=== PATIENT | male | born 1960 | race Caucasian/White ===

== ENCOUNTER → 2022-12-18 | Outpatient (CLI) | payer MEDICARE, MEDICAID, SELFPAY ==
[2022-12-18 11:50] LABS: Creatinine, Serum 1.09 mg/dL (0.70-1.30); EST Glomerular Filtration Rate 73 mL/min (>60); Est Glom Filt Rate - Afr Amer 88 mL/min (>60)
== END | disposition home or self-care (01) ==
PROVIDERS: PCP Internal Medicine; Referring Provider Physician Assistant; Visit Provider Physician Assistant
DX: I10 Essential (primary) hypertension (principal); E11.9 Type 2 diabetes mellitus without complications; I65.29 Occlusion and stenosis of unspecified carotid artery
CPT/HCPCS: 36415; 82565

== ENCOUNTER → 2023-01-10 | Outpatient (CLI) | payer MEDICARE, MEDICAID, SELFPAY ==
--- NOTE | 2023-01-10 12:03 | ADUL_ITS ---
Reason For Study: PVD, hx right iliac artery stent Right Velocities Common Iliac Artery, dist = 49.3 cm./sec. Ext. Iliac Artery, dist = 47.8 cm./sec. Common Femoral Artery, prox = 102.1 cm./sec. Common Femoral Artery, mid = 66.9 cm./sec. Supf Femoral Artery, prox = 107.3 cm./sec. Supf Femoral Artery, mid = 89.8 cm./sec. Supf Femoral Artery, dist. = 54.8 cm./sec. Profunda Femoral Artery = 28.2 cm./sec. Popliteal Artery, mid = 38.4 cm./sec. Post. Tibial Artery, prox = 11 cm./sec. Post. Tibial Artery, mid = 10 cm./sec. BILINGUAL INTERPRETER distal, No Flow. Peroneal Artery, prox = 22.1 cm./sec. Peroneal Artery, mid = 18.1 cm./sec. Peroneal Artery,dist = 15.6 cm./sec. Ant. Tibial Artery, prox = 24.1 cm./sec. Ant. Tibial Artery, mid = 28.2 cm./sec. Ant. Tibial Artery, dist = 15.1 cm./sec. Procedure Exam performed in department. VL/US Art Duplex Unilat Lower Ext Interpretation Summary Right lower extremity arteries with monophasic flow and diminished velocities t hroughout indicating a more proximal occlusion/stenosis. Ordering Physician: La Hart Referring Physician: Elmira Danielle Performed By: Cuca Gaspar RVT
--- NOTE | 2023-01-10 12:03 | ART_ITS ---
Reason For Study: PVD, hx right iliac artery stent Procedure A bilateral lower extremity continuous wave Doppler with analog waveform analysis and ankle brachial indexes. Left Segmental Pressures Left brachial= 97mmHg. Left posterior tibial artery = 22mmHg. Left dorsalis pedis artery = 46mmHg. The left dorsalis pedis waveforms are monophasic. The left posterior tibial artery waveforms are monophasic. Right Segmental Pressures Right brachial= 97mmHg. Right posterior tibial artery = 24mmHg. Right dorsalis pedis artery = 30mmHg. The right dorsalis pedis waveforms are monophasic. The right posterior tibial artery waveforms are monophasic. Indices The right ankle brachial index by the dorsalis pedis is 0.31. The right ankle brachial index by the posterior tibial artery is 0.25. The left ankle brachial index by the dorsalis pedis is 0.47. The left ankle brachial index by the posterior tibial artery is 0.23. . Preliminary report to Cathy. VL/Ankle Brachial Index Interpretation Summary Right ADA 0.31, severe arterial insufficiency. Doppler/PVR waveforms of the rig ht ankle severely diminished. Left ADA 0.47, severe arterial insufficiency. Doppler/PVR waveforms of the left ankle severely diminished Ordering Physician: La Hart Referring Physician: Elmira Danielle Performed By: Cuca Gaspar RVT
--- NOTE | 2023-01-10 12:03 | CT_ITS ---
INDICATION: Bilateral carotid artery stenosis, hx CVA EXAMINATION: CT BRAIN WITHOUT CONTRAST; CTA HEAD AND NECK WITH CONTRAST TECHNIQUE: Noncontrast axial images were obtained of the brain. Subsequently, routine carotid CT angiogram protocol was performed without and with IV contrast. In addition, images were obtained of the [place]. NASCET criteria using the distal ICAs for comparison were used for evaluation of stenoses. 3D reconstructions were reviewed. A radiation dose optimization technique was used for this scan. IV Contrast dosage and agent: 98 mL of Isovue-370 COMPARISON: 12/09/[address] FINDINGS: --CT BRAIN: BRAIN PARENCHYMA: No intra- or extra-axial hemorrhage. No evidence of acute infarct. No intracranial mass or mass effect. There is preservation of the durán/white matter interface. Posterior fossa structures are unremarkable. CSF SPACES: Appropriate for age. No hydrocephalus. Basal cisterns are patent. CALVARIUM, SKULL BASE, PARANASAL SINUSES AND MASTOID AIR CELLS: Clear. No discrete lytic or blastic abnormalities. Bilateral ocular lens replacements. ASPECTS Score for Acute Strokes: 10 --CTA NECK: AORTIC ARCH AND BRANCHES: Common origin of the innominate and left common carotid arteries. Aortic arch origin of the left vertebral artery. RIGHT CCA: No occlusion, significant stenosis or dissection. RIGHT ICA: Calcific plaque at the origin with approximately 50% stenosis. LEFT CCA: No occlusion, significant stenosis or dissection. LEFT ICA: Near complete occlusion at the carotid bulb. RIGHT VERTEBRAL ARTERY: No occlusion, significant stenosis or dissection. LEFT VERTEBRAL ARTERY: No occlusion, significant stenosis or dissection. NECK SOFT TISSUES: Unremarkable. --CTA HEAD: --Anterior circulation: ICAs: No significant stenosis at the intracranial/visualized segments. ACAs: No significant stenosis at the visualized segments. ACOM: Present. MCAs: No significant stenosis at the visualized segments. --Posterior circulation: PCOMs: Present. kennel worker: No significant stenosis at the visualized segments. BASILAR ARTERY: No significant stenosis. VERTEBRAL ARTERIES: No significant stenosis at the intradural/visualized segments. No evidence of intracranial aneurysm or vascular malformation. CT/CTA Head AND Neck W/ Contrast IMPRESSION: Near complete occlusion of the right ICA at the carotid bulb. Approximately 50% stenosis of the left ICA at the carotid bulb. Variant aortic arch. No acute abnormal intracranial finding. No intracranial stenosis or aneurysm. Electronically Signed: Joey Duran MD at 23:15 EDT ,
== END | disposition home or self-care (01) ==
LOC: CVS 12:02
PROVIDERS: PCP Nurse Practitioner Family; Referring Provider Surgery Trauma Surgery; Visit Provider Surgery Trauma Surgery
DX: I65.23 Occlusion and stenosis of bilateral carotid arteries (principal); I73.9 Peripheral vascular disease, unspecified; Z86.73 Personal history of transient ischemic attack (TIA), and cerebral infarction without residual deficits
CPT/HCPCS: 70496; 70498; 93922; 93926; Q9967; A4216

== ENCOUNTER → 2023-01-24 | Outpatient (CLI) | payer MEDICARE, MEDICAID, SELFPAY ==
--- NOTE | 2023-01-24 14:43 | STRESSREP ---
Stress Test Report Pharmacologic myocardial perfusion stress test. 62-year-old man coronary disease for preop evaluation Resting EKG demonstrates sinus rhythm with a rate of 75 bpm. Resting blood pressure is 112/72 mmHg. 0.4 mg of regadenoson was infused per usual protocol followed by rapid intravenous saline flush injection. Continuous EKG monitoring was performed. The maximum heart rate was 90 bpm which was 56% of max impacted heart rate the maximum workload was 1 metabolic equivalent. At rest there were no ST or T wave changes noted to suggest ischemia and at peak infusion nonspecific ST changes were noted which did not meet the criteria for ischemia. No clinical angina is noted. The final blood pressure was 108/74 mmHg. Myocardial perfusion protocol. 11.6 mCi of technetium 99m sestamibi was injected at rest. 0.4 mg of regadenoson was infused per usual protocol. At peak infusion 34.1 mCi of technetium 99m sestamibi was injected stress images were obtained stress and rest images were reconstructed and compared in the short axis vertical long and horizontal long axis. Gated images were also obtained. Perfusion SPECT analysis: Review of the stress images demonstrate normal uptake of tracer noted in all areas of the myocardium. The resting images similar demonstrated normal uptake of tracer noted in all areas of the myocardium. No areas of reversibility are noted to suggest ischemia and no previous infarct is noted. Gated SPECT analysis: The gated ejection fraction is 56%. Conclusion: Normal pharmacologic myocardial perfusion stress test. Preserved ejection fraction.
== END | disposition home or self-care (01) ==
LOC: CVS 05:53
PROVIDERS: PCP Nurse Practitioner Family; Referring Provider Internal Medicine Cardiovascular Disease; Visit Provider Internal Medicine Cardiovascular Disease
DX: I25.10 Atherosclerotic heart disease of native coronary artery without angina pectoris (principal); Z95.1 Presence of aortocoronary bypass graft
CPT/HCPCS: 78452; 93017; A9500; A4216; J2785

== ENCOUNTER → 2023-01-24 | Outpatient (CLI) | payer MEDICARE, MEDICAID, SELFPAY ==
--- NOTE | 2023-01-24 09:58 | CDU_ITS ---
Reason For Study: Hx TIA Rt. Velocities/BP Lt. Velocities/BP Prox CCA 75.9/14.5 cm/sec. Prox CCA 35.2 cm/sec. Mid CCA 67.4/17.3 cm/sec. Mid CCA 20.2/3.7 cm/sec. Dist CCA 66.4/15.4 cm/sec. Dist CCA 18.2/6 cm/sec. Prox ICA 179.5/29.8 cm/sec. Bulb, 317.8/75.3 cm/sec. Mid ICA 78.4/27.8 cm/sec. Prox ICA 43.7/13.5 cm/sec. Dist ICA 92.7/33.3 cm/sec. Mid ICA 44.7/18.2 cm/sec. Rt. ICA/CCA = 2.66. Dist ICA 50.4/20.1 cm/sec. Prox ECA 161.3/11.5 cm/sec. Lt. ICA/CCA = 2.50. Rt. Vert. 65.2/14.6 cm/sec. Prox ECA 208.1/3.4 cm/sec. Lt. Vert. 89.4/23.4 cm/sec. Right Extracranial There is homogeneous, smooth atherosclerotic plaque noted in the right common carotid artery. There is heterogeneous, irregular atherosclerotic plaque noted in the right internal carotid artery. There is heterogeneous, irregular atherosclerotic plaque noted in the right external carotid artery. Antegrade flow is noted in the right vertebral artery. Left Extracranial There is heterogeneous, irregular atherosclerotic plaque noted in the left common carotid artery. There is heterogeneous, irregular atherosclerotic plaque noted in the left internal carotid artery. There is heterogeneous, irregular atherosclerotic plaque noted in the left external carotid artery. Antegrade flow is noted in the left vertebral artery. Procedure Carotid Duplex 30779. This is a Carotid Duplex examination using B-mode, color flow and specral Doppler. Preliminary report left on voicemail. Exam performed in department. VL/Carotid Duplex Ultrasound Interpretation Summary Moderate (50-69%) stenosis right extracranial internal carotid. Severe (>70%) stenosis left extracranial internal carotid. Patent and antegrade vertebrals bilaterally. Ordering Physician: La Hart Referring Physician: Petey Danielle Performed By: Cuca Gaspar RVT
== END | disposition home or self-care (01) ==
LOC: CVS 05:54
PROVIDERS: PCP Nurse Practitioner Family; Referring Provider Physician Assistant; Visit Provider Physician Assistant
DX: I65.23 Occlusion and stenosis of bilateral carotid arteries (principal); Z86.73 Personal history of transient ischemic attack (TIA), and cerebral infarction without residual deficits
CPT/HCPCS: 78452; 93017; 93880; A9500; A4216; J2785

== ENCOUNTER 2023-01-27 05:05 | Inpatient (IN) | payer MEDICARE, MEDICAID, SELFPAY ==
--- NOTE | 2023-01-23 12:50 | EKG12_ITS ---
Test Reason : PRE OP Blood Pressure : / mmHG Vent. Rate : 066 BPM Atrial Rate : 066 BPM P-R Int : 162 ms QRS Dur : 094 ms QT Int : 406 ms P-R-T Axes : 076 063 071 degrees QTc Int : 425 ms Normal sinus rhythm Normal ECG Confirmed by BJORN BOTELLO, MENDY ([id number]), international editorial producer BUTCH BARNETT ([id number]) on 01/24/2023 8:12:19 AM Referred By: RANJANA Confirmed By:MENDY MILAN MD
[2023-01-27] VITALS (18 sets, daily range): BP systolic 85–150; BP diastolic 39–56; PULSE 53–66; RESP 13–19; TEMP 36.4–36.8; O2SAT 92–99; BMI 23.8; BMI 24.5
[2023-01-27] MEDS: Lactated Ringers 1,000 ML 15 ML IV (06:38)
[2023-01-27 06:41] LABS: Hematocrit 43.2 % (40-54); Hemoglobin 14.5 g/dL (13.0-16.5); Mean Corp Hgb Conc 33.6 g/dL (32-36); Mean Corpuscular Hgb 31.9 pg (27.0-32.0); Mean Corpuscular Volume 95.2 fL (80-94); Mean Platelet Vol. 9.4 fl (6.2-12.0); Platelet Count 206 K/mm3 (150-450); RBC Distribution Width CV 12.4 % (11.6-14.6); RBC Distribution Width SD 42.9 fl (35.1-43.9); Red Blood Count 4.54 M/mm3 (4.6-6.2); White Blood Count 10.2 K/mm3 (4.4-11.0)
[2023-01-27 06:51] LABS: Bedside Glucose 171 mg/dL (74-106)
[2023-01-27 06:53] LABS: Anion Gap 4 (5-15); BUN 11 mg/dL (7-18); BUN/Creat Ratio 13.7 RATIO (10-20); Calcium,Total 9.1 mg/dL (8.5-10.1); Chloride 109 mmol/L (98-107); EST Glomerular Filtration Rate 104 mL/min (>60); Est Glom Filt Rate - Afr Amer 126 mL/min (>60); Estimated Creatinine Clearance 77.05 ml/min; Glucose 161 mg/dL (74-106); Potassium 3.8 mmol/L (3.5-5.1); Sodium Level 141 mmol/L (136-145)
--- NOTE | 2023-01-27 07:19 | PCM.HP.BLA ---
History and Physical Allergies tramadol [From [facility]] Adverse Reaction (Severe, Verified 01/23/23 13:25) Rash Medications clopidogrel 75 mg tablet 75 mg PO DAILY BLOOD THINNER 12/09/13 [History Confirmed 01/23/23] furosemide 40 mg tablet 40 mg PO DAILY DIURETIC 12/09/13 [History Confirmed 01/23/23] pantoprazole 40 mg tablet,delayed release 40 mg PO DAILY GERD 12/09/13 [History Confirmed 01/23/23] empagliflozin 10 mg tablet (Jardiance) 10 mg PO DAILY DIABETES 02/27/22 [History Confirmed 01/23/23] insulin detemir U-100 100 unit/mL subcutaneous solution (Levemir U-100 Insulin) 70 unit subcut QHS DIABETES 02/27/22 [History Confirmed 01/23/23] insulin lispro 100 unit/mL subcutaneous pen (Humalog KwikPen (U-100) Insulin) 1 sliding scale dose subcut USEASDIRECTD DIABETES 02/27/22 [History Confirmed 01/23/23] losartan 100 mg tablet 100 mg PO DAILY BP 02/27/22 [History Confirmed 01/23/23] metoprolol tartrate 50 mg tablet 50 mg PO BID BP 02/27/22 [History Confirmed 01/23/23] sertraline 50 mg tablet 75 mg PO QHS DEPRESSION 02/27/22 [History Confirmed 01/23/23] sitagliptin phosphate 100 mg tablet (Januvia) 100 mg PO DAILY DIABETES 02/27/22 [History Confirmed 01/23/23] gabapentin 300 mg capsule 600 mg PO DAILY NERVE PAIN 12/18/22 [History Confirmed 01/23/23] rosuvastatin 40 mg tablet 20 mg PO DAILY CHOLESTEROL 12/18/22 [History Confirmed 01/23/23] hydroxyzine HCl 50 mg tablet 50 mg PO QHS SLEEP 01/20/23 [History Confirmed 01/23/23] diazepam 2 mg tablet (Valium) 2 mg PO DAILY PRN sleep #4 tabs 01/23/23 [Rx Confirmed 01/23/23] PFSH Medical History? Alcohol use Allergies Anxiety Arthritis Atherosclerotic heart disease of [place] coronary artery without angina pectoris Cardiology follow-up encounter Carotid stenosis Cataracts, bilateral Chronic insomnia Chronic left ear pain Depression Diabetes Diabetes mellitus type II, controlled Diabetic neuropathy Easy bruising Essential hypertension Excessive bleeding Gastric reflux GERD (gastroesophageal reflux disease) High cholesterol History of echocardiogram History of edema History of ETOH abuse History of pain when walking History of stress test History of stroke (10/30/21) Hyperlipidemia Insulin dependent diabetes mellitus Leg cramps Major depression in remission Memory impairment Peripheral vascular occlusive disease Smoker Stage 3 chronic kidney disease Stroke/cerebrovascular accident Tobacco abuse Wears dentures Surgical History? H/O coronary artery bypass surgery (03/09/07) History of angioplasty of peripheral vessel Family History? Brother Kidney diseaseMother Asthma Heart disease HypertensionFather Cancer Heart disease Hypertension Social History? Smoking Status:? Light Smoker (<10/day) Tobacco: How many years used:? 45 alcohol intake:? current substance use type:? does not use what type of physical activity do you participate in:? walking frequency:? daily glenroy/hoahaoism:? Yarsani seatbelt use:? always HPI HPI HPI: JAMEL VARGAS, is a 62 M who presents to the office today for follow-up regarding carotid artery stenosis. He is accompanied to his appointment today by his daughter who helps to coordinate his care. He has obtained the CTA Head and Neck as ordered which confirmed critical stenosis and we have started the process of scheduling surgery pending patient agreeing to procedure. He is here to discuss surgical options/recommendations today. Patient continues to have the vision changes including floaters and ocular pain as at last visit. No new focal motor weakness or sensory deficit, dysarthria, facial drooping. No CP, SOB, N/V, F/C, palpitations, syncope/light-headedness, vertigo, blood in the urine or stool. He is having significant anxiety regarding the finding of significant carotid disease and upcoming procedure. The anxiety is contributing to insomnia and he reports he has not slept in 3-4 days. He has tried multiple OTC sleep aids including melatonin without improvement. Continues to have the R hip pain, stable overall. Otherwise, no other complaints today. No changes in his interval medical history which is significant for ?CAD s/p CABGx4 (2006), diabetes (last A1c around 9), HTN, migraine, restless leg syndrome. He continues to smoke. He is taking his ASA and plavix as prescribed.? He is scheduled for cardiac stress test tomorrow as part of process for surgical clearance. ROS General General: Yes weakness; No weight change, appetite, fatigue, colon cancer or breast cancer HEENT HEENT: No difficulty swallowing, eye injury, eye surgery, swollen glands or hoarseness Endo Endocrine: Yes diabetes mellitus; No thyroid disease, thyroid cancer, Hair loss, heat intolerance or cold intolerance Skin Skin: No rash or changing moles Musc Musculoskeletal: Yes back problems, arthritis, rheumatoid arthritis, gout and joint pain Cardio Cardiovascular: Yes high blood pressure, heart stent and palpitations; No murmur, pacemaker, heart disease, atrial fibrillation, heart attack, shortness of breat with exertion or chest pain Psych Psychiatric: Yes depression; No anxiety or hearing voices Resp Respiratory: No shortness of breath, Yes sleep apnea, No cough, No COPD, No asthma, No emphysema and No wheezing Gastro Gastrointestinal: No abdominal pain, No nausea or vomiting, No diarrhea, No constipation, No blood in stool, Yes acid reflux, No hemorrhoids, No ulcers, No gallbladder problem and No black,tarry stools Alon Hematologic: Yes blood thinners, No blood disorders, No bleeding, No anemia and No blood clots Neuro Neurologic: No system reviewed and no additional complaints, except as documented, No as per HPI, No abnormal gait, No abnormal hearing, No abnormal movements, No abnormal speech, No behavioral changes, Yes burning sensations, No confusion, No convulsions, No disequilibrium, No dizziness, No localized weakness, No frequent falls, No headache(s), No lack of coordination, No loss of vision, No memory loss, Yes numbness, No other visual disturbances, No radicular pain, No restless legs, No sensory deficit, No syncope, Yes tingling, No tremor(s), Yes weakness and No other Exam Const General: cooperative, comfortable and no acute distress Orientation: alert, awake and oriented x3 HENMT Head: normal to inspection, normocephalic and atraumatic Ears: hearing grossly normal bilaterally and external ears normal Nose: external nose normal Eyes General: appearance normal, both eyes and all related structures EOM: EOM intact bilaterally Neck Neck: normal visual inspection and trachea midline Resp Effort & Inspection: normal respiratory effort, able to speak in complete sentences, symmetric chest movement, not labored, no respiratory distress, no retractions and no stridor Auscultation: clear to auscultation bilaterally Cardio Rate: regular rate Rhythm: regular rhythm Skin General: no rashes or lesions noted Trauma: no lacerations or abrasions Wounds: no wounds Neuro General: patient alert, patient awake, patient oriented x3, gait normal, moves all extremities and CN's II-XI intact bilaterally Speech: speech normal Extremities Pulses: Normal: Right Radial Pulse and Left Radial Pulse and Absent: Right Dorsalis Pedis Pulse (monophasic doppler signal), Left Dorsalis Pedis Pulse (monophasic doppler signal), Right Posterior Tibial Pulse (biphasic doppler signal) and Left Posterior Tibial Pulse (biphasic doppler signal) Lower Extremity Edema: None: Bilateral Psych Appearance: grossly normal Mental Status: mental status grossly normal Affect: normal affect Speech and Movement: speech and movement normal Attitude: cooperative Judgment: judgment good Coding Level of Care Code Off vis,est,level 3 Diagnoses Carotid stenosis? I65.29 Peripheral vascular occlusive disease? I73.9 Assessment and Plan Assessment and Plan (1) Carotid stenosis: -left CEA
--- NOTE | 2023-01-27 07:30 | PLAQ_PTH ---
PATIENT: JAMEL VARGAS LOC: [facility] U#:[id number] AGE/SX: 62/M ROOM: [place] [address] RE01/27/[address]: Dr. Basil Cartagena MD : 1960 BED: 1 DIS: 01/28/2023 SPEC #: [id number] RECD: 01/27/23 12:54 STATUS: TYRON RELupe #: [id number] STEVEN: 01/27/23 07:[address]: Basil Cartagena DEPT: SURGICAL PATHOLOGY RECD BY: Steven Godfrey ENTERED: 01/27/23 13:30 SP TYPE: PLAQUE OTHR DR: Elmira Danielle NP-Abhinav Tissues: PLAQUE Procedures: Decalcification bone/plaque Surgery Specimen Level III HEADER OPERATION: Carotid endarterectomy PRE-OP DIAGNOSIS: Carotid stenosis TISSUE SUBMITTED: Carotid plaque MICROSCOPIC DIAGNOSIS Carotid plaque, endarterectomy: Atherosclerotic tissue with focal calcifications (plaque). SJ:oly 01/30/2023 GROSS DESCRIPTION Received in fixative is one container labeled with the patient's name and designated carotid plaque. The specimen consists of a previously opened donovan, indurated piece of tubular tissue measuring 2.0 cm in length and 0.8 cm in diameter. The specimen cuts with gritty sensation. The entire specimen is submitted in one cassette after decalcification. / CHERELLE:oly 01/27/2023 TC:5 CPT: 06799, 80320
[2023-01-27] MEDS: Cefazolin 2 GM in 0.9% Normal Saline 100 ML IV (07:36)
[2023-01-27 08:32] LABS: Hemoglobin A1c 7.1 % (3.8-5.6)
[2023-01-27] MEDS: Heparin Injection (Vial) 5,000 UNIT/ML VIAL 5000 UNIT (10:00)
--- NOTE | 2023-01-27 10:26 | PCM.OPRPT ---
Report of Operation Date of Procedure: 01/27/23 Pre-Operative Diagnosis: left carotid stenosis, symptomatic Post-Operative Diagnosis: same Surgery/Procedure Performed:: left carotid endarterectomy Surgeon: Basil Cartagena Type of Anesthesia: General Drains: 15 Fr RAPHAEL Estimated Blood Loss (mL): 50 Description of Procedure: HPI: Patient is a 62-year-old male who had a left ocular vision disturbances and had concerning findings when seen by ophthalmology. He had a carotid duplex at an outside facility which revealed diminutive flow in the carotid and no visualized stenosis at the origin however there was dense calcifications. CT angiography confirmed a highly calcified lesion with what appeared to be a 85% stenosis. He is taken now for endarterectomy for stroke prevention. Description of procedure: Upon obtaining form consent and verification correct patient procedure site patient was taken the operating where he was placed under general anesthesia. He was then positioned prepped and draped in usual sterile fashion and timeout was performed. Oblique incision was made along the anterior border of the sternocleidomastoid and Bovie electrocautery dissected down to the level of the platysma. The platysma was then divided and self-retaining retractors put in position. Further dissection was carried down to the sternocleidomastoid which was freed along its medial edge along posterior lateral retraction and exposing the carotid sheath. Sharp dissection was then used to dissect free the anterior to the internal jugular vein, and the facial vein and adjacent branches were ligated with silk ties and divided allowing the vein to be retracted laterally exposing the carotid. Sharp dissection was then used to dissect free the proximal common carotid artery with care taken to identify and protect the vagus nerve. A right angle used to place Vesseloops this location and the patient was then heparinized and allowed to circulate for 3 minutes. Serial heparin dosing was performed based on ACT results. Next we turned our attention to the internal carotid artery and dissected distally to a point beyond the area of palpable and visible plaque with care taken to identify and protect the hypoglossal nerve. Vessels then dissected free circumferentially and a right angle used to place a vessel loop. Finally we dissected free the external carotid artery and a right angle used to place a vessel loop. Vessels were then clamped first the internal followed by the common and external. Longitudinal arteriotomy was created with 11 blade extended Mcnulty scissors onto the internal carotid artery beyond the area of plaque. An 8 [place] shunt was then placed first distally into the internal carotid artery then allowed to backbleed before placing proximally in the common carotid artery. The shunt was interrogated with Doppler and found to be patent with low resistance signal. We then performed her endarterectomy with a freer elevator with satisfactory endpoint onto the internal carotid artery and eversion endarterectomy onto the external carotid artery. The vessel was then flushed with heparinized saline to clear debris in the distal endpoint tacked with 7-0 Prolene interrupted sutures. Next a bovine pericardial patch was brought to field and secured into position using a 6-0 Prolene in a running fashion. Prior to completing the suture line the shunt was removed and the vessels backbled. After completing the suture line the internal carotid artery was allowed to backbleed into the bifurcation then reoccluded as origin. The clamps were then removed from the external and the common carotid artery allowing 10 heartbeats of antegrade flow to flush into the external before reestablishing antegrade flow into the internal carotid artery. Once clamps removed satisfactory stasis was noted and the vessels were interrogated with Doppler. The internal carotid artery is patent with low resistance signal in the external carotid artery is patent. The patient was then reversed with protamine and the incision inspected for hemostasis. A 15 [place] RAPHAEL was then placed via separate stab incision and secured in position. The incision was then closed with 2-0 Vicryl, 3-0 Vicryl, 4 Monocryl and Dermabond for the skin. At the conclusion of the case patient was awakened anesthesia moving all extremities to command at which point he was taken the intensive care unit for close hemodynamic and neurologic monitoring.
[2023-01-27] MEDS: Bupivacaine Mpf 0.5% 30 ML VIAL (10:35)
[2023-01-27] MEDS: 0.45% Normal Saline 1,000 ML 100 ML IV ×2 (12:14→21:19)
[2023-01-27 12:48] LABS: Bedside Glucose 165 mg/dL (74-106)
[2023-01-27] MEDS: Acetaminophen 500 MG Tablet 1000 MG PO ×2 (14:21→21:20)
[2023-01-27] MEDS: Cefazolin 1 GM/50 ML BAG IV ×2 (16:09→23:21)
[2023-01-27 16:33] LABS: Bedside Glucose 130 mg/dL (74-106)
[2023-01-27] MEDS: Insulin Glargine-YFGN 100 UNIT/ML Pen 70 UNIT SC (21:19)
[2023-01-27] MEDS: Sertraline 50 MG Tablet 75 MG PO (21:20)
[2023-01-27] MEDS: Atorvastatin Calcium 40 MG Tablet PO (21:20)
[2023-01-27] MEDS: hydrOXYzine PAM 25 MG Capsule 50 MG PO (21:20)
[2023-01-27 21:50] LABS: Bedside Glucose 135 mg/dL (74-106)
[2023-01-28] VITALS (13 sets, daily range): BP systolic 105–139; BP diastolic 46–86; PULSE 53–65; RESP 11–17; TEMP 36.4; O2SAT 90–98; BMI 24.6
[2023-01-28 03:12] LABS: Absolute Lymphocyte Count 3.52 X10^3/uL (0.83-4.51); Absolute Neutrophil Count 3.7 X10^3/uL (2.0-7.7); Basophil# 0.08 X10^3/uL; Basophil% 0.9 % (0-1); Eosinophil# 1.35 X10^3/uL; Hematocrit 34.8 % (40-54); Hemoglobin 11.2 g/dL (13.0-16.5); Lymphocyte # 3.52 X10^3/ul (0.83-4.51); Lymphocyte % 39.1 % (19-41); Mean Corp Hgb Conc 32.2 g/dL (32-36); Mean Corpuscular Hgb 31.3 pg (27.0-32.0); Mean Corpuscular Volume 97.2 fL (80-94); Mean Platelet Vol. 9.8 fl (6.2-12.0); Monocyte# 0.36 X10^3/uL; NRBC Flagged by Analyzer 0 % (0-5); Neutrophil # 3.68 X10^3/uL (2.7-7.7); Neutrophil % 40.8 % (47-70); Platelet Count 159 K/mm3 (150-450); RBC Distribution Width CV 12.4 % (11.6-14.6); RBC Distribution Width SD 44.5 fl (35.1-43.9); Red Blood Count 3.58 M/mm3 (4.6-6.2)
[2023-01-28 03:57] LABS: Anion Gap 2 (5-15); BUN 9 mg/dL (7-18); BUN/Creat Ratio 12.7 RATIO (10-20); Calcium,Total 8.3 mg/dL (8.5-10.1); Chloride 109 mmol/L (98-107); Creatinine, Serum 0.71 mg/dL (0.70-1.30); EST Glomerular Filtration Rate 120 mL/min (>60); Est Glom Filt Rate - Afr Amer 145 mL/min (>60); Estimated Creatinine Clearance 86.82 ml/min; Glucose 89 mg/dL (74-106); Sodium Level 139 mmol/L (136-145)
[2023-01-28] MEDS: Acetaminophen 500 MG Tablet 1000 MG PO (06:24)
[2023-01-28 06:47] LABS: Bedside Glucose 109 mg/dL (74-106)
--- NOTE | 2023-01-28 09:10 | CASEMGMT ---
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 Pt voices understanding and consents to?assessment?at this time.? Pt sitting up in chair in room in no distress at this time.? Pt is A/O at this time and answers all questions appropriately.?? Care providers, pharmacy, and demographics verified/updated at this time. PCP: CAPRICE Danielle Specialists:Dr Cartagena- vascular Preferred Pharmacy: [facility], [facility] Retail Insurance: Julissa COLEMAN Prescription Benefit:?Yes Living Will/HPOA:?Pt does not currently have LW/HCPOA and declines info at this time.? Pt made aware that he can contact as an out-pt and make appt in the future if he decides he would like to talk with someone about this or would like to utilize [facility] social work for advanced directive completion. LNOK: Daughter, Yamini. 3 other children Living Arrangements: Lives alone in 2nd-story apt w/elevator access. Indep w/ADL's and IADL's and manages his own medications and appts. Transportation:?Pt states drives self and states no transportation concerns at this time.?Dtr will take him home @ dc DME: ? Denies using any DME and denies needs.? HHC/SNF: No hx of either. Pt denies need for HHC and no needs identified. Pt wishes to return home and states has no concerns with going home at time of discharge.??CM?to follow for any discharge planning/needs.? Pt voices no further concerns/needs at this time.? Advised pt to ask for?CM?if any further questions/concerns/needs arise.? Voices understanding. PLAN:??Home. Markus LIMAN?RN?CM
[2023-01-28] MEDS: Losartan Potassium 100 MG Tablet PO (09:45)
[2023-01-28] MEDS: Empagliflozin 10 MG Tablet PO (09:46)
[2023-01-28] MEDS: Pantoprazole Sodium 40 MG Tablet PO (09:48)
[2023-01-28] MEDS: LINAGLIPTIN 5 MG TABLET PO (09:48)
[2023-01-28] MEDS: Enoxaparin 40 MG/0.4 ML Syringe SC (09:48)
[2023-01-28] MEDS: Gabapentin 600 MG Tablet PO (09:48)
[2023-01-28] MEDS: Metoprolol Tartrate 50 MG Tablet PO (09:49)
[2023-01-28] MEDS: Furosemide 40 MG Tablet PO (09:49)
[2023-01-28] MEDS: Clopidogrel Bisulfate 75 MG Tablet PO (09:49)
--- NOTE | 2023-01-28 10:45 | PN.SURG_ITS ---
Subjective Subjective Patient is doing very well, no issues overnight. He is voiding without difficulty. Has been tolerating clears for diet. His pain is well-controlled. He has not ambulated very much yet. He denies SCHAFER, vision changes, weakness. Objective Data Objective Data Vital Signs: Vital Signs Temp Pulse Resp BP Pulse Ox O2 Del Method O2 Flow Rate 97.5 F L 62 15 129/58 H 93 Room Air 2 01/28/23 06:00 01/28/23 10:00 01/28/23 10:00 01/28/23 10:00 01/28/23 10:00 01/28/23 10:00 01/28/23 07:00 Oxygen Flow Rate (L/min) 2 Oxygen Delivery Method Room Air Weight: 139 lb 1.787 oz Body Mass Index (BMI) 24.6 Intake & Output: Intake and Output for Last 24 Hours 01/26/23 01/27/23 01/28/23 23:59 23:59 23:59 Intake Total 1248.33 / 1248.33 1523.5 / 1523.5 Output Total 150 / 150 1350 / 1350 Balance 1098.33 / 1098.33 173.5 / 173.5 Lab / Micro Data Result Diagrams: 01/28/23 02:53 01/28/23 02:53 Labs: Laboratory Results - last 24 hr 01/27/23 12:30: POC Glucose 165 H 01/27/23 15:58: POC Glucose 130 H 01/27/23 21:18: POC Glucose 135 H 01/28/23 02:53: WBC 9.0, RBC 3.58 L, Hgb 11.2 L, Hct 34.8 L, MCV 97.2 H, MCH 31.3, MCHC 32.2, RDW Std Deviation 44.5 H, RDW Coeff of Sylvester 12.4, Plt Count 159, MPV 9.8, Immature Gran % (Auto) 0.200, Neut % (Auto) 40.8 L, Lymph % (Auto) 39.1, [place] % (Auto) 4.0, Eos % (Auto) 15.0 H, Baso % (Auto) 0.9, Absolute Neuts (auto) 3.7, Absolute Lymphs (auto) 3.52, Nucleated RBC % 0 01/28/23 02:53: Sodium 139, Potassium 4.0, Chloride 109 H, Carbon Dioxide 28.0, Anion Gap 2 L, BUN 9, Creatinine 0.71, Estim Creat Clear Calc 86.82, Est GFR (MDRD) Af Amer 145, Est GFR (MDRD) Non-Af 120, BUN/Creatinine Ratio 12.7, Glucose 89, Calcium 8.3 L 01/28/ 06:09: POC Glucose 109 H Physical Exam Const alert, oriented x3 and no apparent distress General Appearance: cooperative and comfortable HEENT normocephalic, hearing grossly normal bilaterally and external ears normal Nose: external nose normal Eyes EOMs intact bilaterally General Eye: normal appearance of both eyes Neck Neck Narrative: Left CEA incision site with surgical glue intact, no significant edema, ecchymosis, erythma. There is no drainage or bleeding noted. Minimal serosanguineous drainage in RAPHAEL drain. Resp normal respiratory effort, no retractions and no use of accessory muscles Effort and Inspection: able to speak in complete sentences; Negative for labored, stridor or audible wheezes Cardio regular rate and regular rhythm Extremity no clubbing, cyanosis or edema Neuro oriented x3, CN's II-XII intact bilaterally, moves all extremities and no focal motor deficits Speech: speech normal Psych Appearance: grossly normal Attitude: calm and engaged Activity / Motor Behavior: appropriate eye contact Speech: normal speech Mood & Affect: euthymic mood Assessment & Plan Assessment/Plan (1) Carotid stenosis: PLAN: Patient is POD#1 from left carotid endarterectomy. I removed the surgical site dressing and RAPHAEL drain without issue. The incision site is satisfactory in appearance. His pain is well-controlled. He is voiding without difficulty. Will progress to regular diet for breakfast/lunch and will be UTC and ambulate this morning. As long as no difficulty, anticipate discharge this afternoon.
--- NOTE | 2023-01-28 11:23 | PCM.DC.SUM ---
Providers Date of Admission: 01/27/23 Primary Care Physician: MARLENY Ramirez Reason For Visit: LEFT CAROTID ENDARTERECTOMY Diagnosis Discharge Diagnosis (1) Carotid stenosis: Status: Chronic Code(s): I65.29 - Occlusion and stenosis of unspecified carotid artery Plan: Patient is POD#1 from left carotid endarterectomy. I removed the surgical site dressing and RAPHAEL drain without issue. The incision site is satisfactory in appearance. His pain is well-controlled. He is voiding without difficulty. Will progress to regular diet for breakfast/lunch and will be [facility] and ambulate this morning. As long as no difficulty, anticipate discharge this afternoon. Medications at Discharge Home Medications clopidogrel 75 mg tablet 75 mg PO DAILY BLOOD THINNER 12/09/13 furosemide 40 mg tablet 40 mg PO DAILY DIURETIC 12/09/13 pantoprazole 40 mg tablet,delayed release 40 mg PO DAILY GERD 12/09/13 empagliflozin 10 mg tablet (Jardiance) 10 mg PO DAILY DIABETES 02/27/22 insulin detemir U-100 100 unit/mL subcutaneous solution (Levemir U-100 Insulin) 70 unit subcut QHS DIABETES 02/27/22 insulin lispro 100 unit/mL subcutaneous pen (Humalog KwikPen (U-100) Insulin) 1 sliding scale dose subcut USEASDIRECTD DIABETES 02/27/22 losartan 100 mg tablet 100 mg PO DAILY BP 02/27/22 metoprolol tartrate 50 mg tablet 50 mg PO BID BP 02/27/22 sertraline 50 mg tablet 75 mg PO QHS DEPRESSION 02/27/22 sitagliptin phosphate 100 mg tablet (Januvia) 100 mg PO DAILY DIABETES 02/27/22 gabapentin 300 mg capsule 600 mg PO DAILY NERVE PAIN 12/18/22 rosuvastatin 40 mg tablet 20 mg PO DAILY CHOLESTEROL 12/18/22 hydroxyzine HCl 50 mg tablet 50 mg PO QHS SLEEP 01/20/23 oxycodone 5 mg tablet 5 mg PO Q8H PRN pain 3 days #9 tabs 01/28/23 Hospital Course Operations - (Left carotid endarterectomy) Summary of Care Provided Hospital Course: Patient underwent left carotid endarterectomy on 01/27/23. The procedure was without complications and he tolerated it well. Following the procedure, he was routinely admitted to the ICU for neurologic and hemodynamic monitoring. RAPHAEL drain was removed on POD#1 without issue. He has remained both neurologically and hemodynamically stable throughout. He has been recovering very well. His pain is well controlled on PO medications, he is voiding without difficulty, he is ambulating without issue. He has expected soreness around the incision site but otherwise no complaints. He is discharged in medically stable condition with outpatient follow-up in our office in 2-4 weeks. Physical Exam Const alert, oriented x3 and no apparent distress General Appearance: cooperative and comfortable HEENT normocephalic, hearing grossly normal bilaterally and external ears normal Nose: external nose normal Eyes EOMs intact bilaterally General Eye: normal appearance of both eyes Neck Neck Narrative: Left CEA incision site with surgical glue intact, no significant edema, ecchymosis, erythma. There is no drainage or bleeding noted. Resp normal respiratory effort, no retractions and no use of accessory muscles Effort and Inspection: able to speak in complete sentences; Negative for labored, stridor or audible wheezes Cardio regular rate and regular rhythm Extremity no clubbing, cyanosis or edema Neuro oriented x3, CN's II-XII intact bilaterally, moves all extremities and no focal motor deficits Speech: speech normal Psych Appearance: grossly normal Attitude: calm and engaged Activity / Motor Behavior: appropriate eye contact Speech: normal speech Mood & Affect: euthymic mood Weight / BMI Weight Weight: 139 lb 1.787 oz Body Mass Index (BMI) 24.6 ABG / Lab / Microbiology Data Result Diagrams: 01/28/23 02:53 01/28/23 02:53 Laboratory: Laboratory Results - last 24 hr 01/27/23 12:30: POC Glucose 165 H 01/27/23 15:58: POC Glucose 130 H 01/27/23 21:18: POC Glucose 135 H 01/28/23 02:53: WBC 9.0, RBC 3.58 L, Hgb 11.2 L, Hct 34.8 L, MCV 97.2 H, MCH 31.3, MCHC 32.2, RDW Std Deviation 44.5 H, RDW Coeff of Sylvester 12.4, Plt Count 159, MPV 9.8, Immature Gran % (Auto) 0.200, Neut % (Auto) 40.8 L, Lymph % (Auto) 39.1, [place] % (Auto) 4.0, Eos % (Auto) 15.0 H, Baso % (Auto) 0.9, Absolute Neuts (auto) 3.7, Absolute Lymphs (auto) 3.52, Nucleated RBC % 0 01/28/23 02:53: Sodium 139, Potassium 4.0, Chloride 109 H, Carbon Dioxide 28.0, Anion Gap 2 L, BUN 9, Creatinine 0.71, Estim Creat Clear Calc 86.82, Est GFR (MDRD) Af Amer 145, Est GFR (MDRD) Non-Af 120, BUN/Creatinine Ratio 12.7, Glucose 89, Calcium 8.3 L 01/28/23 06:09: POC Glucose 109 H D/C Instructions Discharge Diet: No restrictions May shower in (days): 1 Weight Bearing Status: Weight bearing as tolerated Lifting Restricted to (Lbs): 20 Lifting Restrictions: Do not lift greater than 20 pounds for 3 weeks. Call your doctor if your incision/area has: Sudden Increased Bleeding and Increased Pain/ Swelling Call your doctor if you observe: Fever of 101 or Higher and Uncontrolled pain Remove Dressing in: 1 day Additional Dressing/Incision Instructions: There is a small bandage covering the incision where the drain had been placed. You may remove this bandage tomorrow. As long as there is no drainage, you may leave this open/uncovered. If you want or if there is drainage, you may re-cover it with a band-aid. The rest of the incision is covered with surgical glue. This glue protects the incision site so there is no need to keep it covered with a bandage. The glue will flake/peel off on its own over the next few weeks, please do not pick at it. Additional Instructions: You may shower tomorrow. As discussed, the surgical glue protects the incision site so soap and water may rinse over the area. Do not submerge the incision site in water such as with a bath, swimming pool, or hot tub for at least 3 weeks. Do not lift greater than 20 pounds for the next [address] you can move your neck well enough to check your blindspots, typically wait 3-[address] I have prescribed oxycodone 5 mg to take as needed for pain. Take this medication only as prescribed and do not take it in combination with any other prescription pain medications. You may take it with tylenol as needed. Do not drive while you are taking the prescription pain medication, oxycodone. Follow-up in the office in 2-4 weeks, if an appointment has not already been scheduled our office will reach out to you soon to make one. Please Follow Up With: Basil Cartagena MD When: 2-4 weeks Meaningful Use Info Meaningful Use Diagnoses (Choose all that apply): None applicable Discharge Plan Admission Admit Date/Time: 01/27/23 05:05 Primary Reason for Your Visit: Left carotid endarterectomy Attending Provider: Basil Cartagena Primary Care Provider: Elmira Danielle NP Discharge Orders/Prescriptions Prescriptions: New oxycodone 5 mg tablet 5 mg PO Q8H PRN (Reason: pain) 3 Days Qty: 9 0RF Continued sertraline 50 mg tablet 75 mg PO QHS losartan 100 mg tablet 100 mg PO DAILY insulin lispro [Humalog KwikPen Insulin] 100 unit/mL insulin pen 1 sliding scale dose subcut USEASDIRECTD Januvia 100 mg tablet 100 mg PO DAILY Jardiance 10 mg tablet 10 mg PO DAILY Levemir U-100 Insulin 100 unit/mL solution 70 unit subcut QHS gabapentin 300 mg capsule 600 mg PO DAILY rosuvastatin 40 mg tablet 20 mg PO DAILY furosemide 40 MG tablet 40 mg PO DAILY clopidogrel 75 MG tablet 75 mg PO DAILY pantoprazole 40 MG tablet 40 mg PO DAILY metoprolol tartrate 50 mg tablet 50 mg PO BID hydroxyzine HCl 50 mg tablet 50 mg PO QHS Label Comments: TAKE 1 TABLET BY MOUTH EVERYDAY AT BEDTIME Discontinued diazepam [Valium] 2 mg tablet 2 mg PO DAILY MDD 2 mg PRN (Reason: sleep) Qty: 4 0RF Referrals / Follow Up: Elmira Danielle NP, ASSOCIATE PROFESSOR OF ARCHAE[employer]Y-C [Primary Care Provider] - Disposition Disposition (needs filled in before D/C Order can be placed): Home, Self Care
== END 2023-01-28 12:07 | disposition home or self-care (01) | DRG 39 ==
LOC: ACINP 05:06 → ICU 11:50
PROVIDERS: Anesthesiology; Family Medicine; Admitting Provider Surgery Trauma Surgery; PCP Nurse Practitioner Family; Referring Provider Surgery Trauma Surgery; Visit Provider Surgery Trauma Surgery
PROC: 03CN0ZZ Extirpation of Matter from Left External Carotid Artery, Open Approach (ICD-10-PCS; CPT 35301; principal; 2023-01-27 07:10)
DX: I65.22 Occlusion and stenosis of left carotid artery (principal); E11.42 Type 2 diabetes mellitus with diabetic polyneuropathy; E11.51 Type 2 diabetes mellitus with diabetic peripheral angiopathy without gangrene; F03.90 Unspecified dementia, unspecified severity, without behavioral disturbance, psychotic disturbance, mood disturbance, and anxiety; Z79.4 Long term (current) use of insulin; F17.200 Nicotine dependence, unspecified, uncomplicated; I10 Essential (primary) hypertension; I25.10 Atherosclerotic heart disease of native coronary artery without angina pectoris; E78.00 Pure hypercholesterolemia, unspecified; Z95.1 Presence of aortocoronary bypass graft; Z79.02 Long term (current) use of antithrombotics/antiplatelets; Z79.82 Long term (current) use of aspirin; Z79.84 Long term (current) use of oral hypoglycemic drugs; Z79.899 Other long term (current) drug therapy; Z86.73 Personal history of transient ischemic attack (TIA), and cerebral infarction without residual deficits
CPT/HCPCS: 78452; 80048; 82962; 83036; 85025; 85027; 86850; 86900; 86901; 88304; 88311; 93005; 93017; 93880; 94668; 99252; 99406; A4648; A9500; J7040; J7120; A4216; G0463; J2405; J2785

== ENCOUNTER 2023-04-02 14:34 | Outpatient (RCR) | payer MEDICARE, MEDICAID, SELFPAY ==
--- NOTE | 2023-04-02 16:46 | HP.PTEVAL_ITS ---
Patient's Visit Information Visit Information Visit Information: JAMEL VARGAS is a 62 year old M referred to Physical Therapy by MARLENY Ramirez with a diagnosis of Right Shoulder Pain. 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 He is right hand dominate. It has progressively gotten worse. He woke up one day and the joint was sore. He tried muscle rubs. He saw his family MD who took x-rays and she put him on Tylenol and told him it was OA- the medication is not helping. He has been using pulleys and a rubber ball. It hurts so bad that sometimes he gets sick to his stomach. Agg: moving it. Eases: keeping it up against his ribs. Pain is located in the shoulder back into the shoulder blade and is now radiating into the cervical spine. Describes the pain as sharp. He has N/T in both hands and that is new. He feels like there is a vibration in his back now. Sleep: bed- but its keeping him up and he is having a hard time getting comfortable. He had an injection in his shoulder years ago but nothing since then. Work: [employer] not work- but his grandchildren keep him active- youngest is 3 years old. Hard to ho ld his coffee cup when it gets really bad. No dizziness or SCHAFER. Does have pain that radiates to his fingers. PMHx/Meds: none at this time. Objective Objective: Posture: SEVERE guarding of the right UE- FH, RS Gait: no LE deviation- guarding of the right UE- sling position no sling- no arm swing on right Palpation: tender throughout cervical spine, upper trap, scapula, deltoid, bicep, tricep ROM: Cervical: WFL with pain in all directions, Shoulder: to guarded for PROM- AROM: flexion: 90 degrees, abd: 90 degrees, IR: to greater troch, ER: 30 degrees all with severe pain, Elbow: WFL with pain at end range flexion, Wrist: WFL, Specialized Language Instructor: able to touch all fingers Strength: Specialized Language Instructor: diminished, Wrist: 4/5, Elbow: 4-/5 with pain, Shoulder: 2+/5 with pain, Cervical: 4-/5 with pain Severe guarding of the right UE- will take more measurements as pain improves. Balance/Special Test Scores Quick DASH Score: 100.0000 Goals Goal 1:: Patient will be I with HEP and progression Goal Time Frame: 4-6 Weeks Goal 2:: Patient will demo full AROM of the right shoulder Goal Time Frame: 4-6 Weeks Goal 3:: Patient will maintain proper posture to demo increased scapular s/s of the right shoulder Goal Time Frame: 4-6 Weeks Goal 4:: Patient will report 80% improvement Goal Time Frame: 4-6 Weeks Rehabilitation Potential Physical Therapy Diagnosis: Patient presents with hypomobility- he has decreased UE ROM, scapular and UE strength/stabilization, muscular endurance leading to poor posture and increased pain with ADL's. Rehabilitation Potential: Good Anticipated Interventions Patient/Client Instruction: Educate patient on: Benefits of Fitness Program Therapeutic Exercise to Include: Strength training, Endurance training, Agility training, Body mechanics, Postural training, Flexibilty training, Neuromotor development, Passive ROM, Active ROM, Dynamic Lumbar Stabilization and Scapular Strength/Stabilization For the Purpose of:: To improve muscle performance and motor function TENS: Yes Cryotherapy (ice pack, ice massage): Yes Thermo therapy (hot pack): Yes Ultrasound (thermal/non thermal): Yes Text: Thank you for the opportunity to evaluate your patient. For Medicare and Medicare HMO plans, please review the plan of care and approve it. It will need to be FAXED BACK to us at [phone] for Medicare purposes. For Medicare only, by signing this I certify the plan of care. Please let me know if there are questions or concerns regarding this plan of care. Physician Signature: Date:
--- NOTE | 2023-08-14 08:59 | HP.PT.NRP ---
Patient Information Patient Information: JAMEL VARGAS was seen in my office for initial evaluation on 04/02/23. The following Plan of Care was established for this patient: POC Established Initial Frequency: 2x /Week Initial Duration: 4 Weeks Anticipated Interventions Patient/Client Instruction: Educate patient on: Benefits of Fitness Program Therapeutic Exercise to Include: Strength training, Endurance training, Agility training, Body mechanics, Postural training, Flexibilty training, Neuromotor development, Passive ROM, Active ROM, Dynamic Lumbar Stabilization and Scapular Strength/Stabilization For the Purpose of:: To improve muscle performance and motor function TENS: Yes Cryotherapy (ice pack, ice massage): Yes Thermo therapy (hot pack): Yes Ultrasound (thermal/non thermal): Yes Last Seen Last Seen: This patient was last seen in our office . Pertinent comments regarding their Physical therapy will appear below: Patient has not attended PT since initial evaluation- appropriate to be d/c At this point I will be discontinuing this patient from physical therapy. I would be happy to see this patient again in the future if found appropriate by the physician. Thank you! Jada Sosa DPT Balance/Gait/Functional tests Balance/Special Test Scores Quick DASH Score: 100.0000
== END 2023-04-02 19:00 | disposition home or self-care (01) ==
LOC: PT 14:34
PROVIDERS: PCP Nurse Practitioner Family; Referring Provider Nurse Practitioner Family; Visit Provider Nurse Practitioner Family
DX: S46.011D Strain of muscle(s) and tendon(s) of the rotator cuff of right shoulder, subsequent encounter (principal)
CPT/HCPCS: 97162

== ENCOUNTER 2024-12-23 14:22 | Emergency (ER) | payer MEDICARE, MEDICAID, SELFPAY ==
[2024-12-23 14:24] VITALS: BP 153/64; PULSE 70; RESP 16; TEMP 36.6; O2SAT 95; BMI 27.7
--- NOTE | 2024-12-23 14:53 | EX.ED.DYSGE1 ---
HPI History of Present Illness Chief Complaint: Hypoglycemia Detail of Chief Complaint: Hypoglycemia Informant: patient Narrative Narrative: Patient presents to the emergency department via EMS with hypoglycemic episode. Patient remembers going to [employer] to buy some food and then does not remember what happened until he became aware where he was in the ambulance. Apparently on EMS arrival he was confused and disoriented and finger stick blood sugar was 33. He received oral glucose which really did not seem to improve his blood sugar and then received D10. On arrival to the emergency department blood sugar was 120. As I interviewed the patient he states that he did not eat this morning and gave himself 7 units of regular insulin. Patient also takes long-acting insulin at night and also takes oral medication. He denies recent illness. Currently has no complaints. [facility] Medical History Alcohol use Allergies Anxiety Arthritis Atherosclerotic heart disease of [place] coronary artery without angina pectoris Cardiology follow-up encounter Carotid stenosis Cataracts, bilateral Chronic insomnia Chronic left ear pain Depression Diabetes Diabetes mellitus type II, controlled Diabetic neuropathy Easy bruising Essential hypertension Excessive bleeding Gastric reflux GERD (gastroesophageal reflux disease) High cholesterol History of echocardiogram History of edema History of ETOH abuse History of pain when walking History of stress test History of stroke (10/30/21) Hyperlipidemia Insulin dependent diabetes mellitus Leg cramps Major depression in remission Memory impairment Peripheral vascular occlusive disease Smoker Stage 3 chronic kidney disease Stroke/cerebrovascular accident Tobacco abuse Wears dentures Home Medications ?Medication ?Instructions ?Recorded ?Last Taken ?Type clopidogrel 75 mg tablet 75 mg PO DAILY BLOOD THINNER 12/09/13 12/23/24 History furosemide 40 mg tablet 40 mg PO DAILY DIURETIC 12/09/13 12/23/24 History pantoprazole 40 mg tablet,delayed 40 mg PO DAILY GERD 12/09/13 12/23/24 History release empagliflozin 10 mg tablet 10 mg PO DAILY DIABETES 02/27/22 12/23/24 History (Jardiance) insulin lispro 100 unit/mL See Protocol subcut USEASDIRECTD 02/27/22 12/23/24 History subcutaneous pen (Humalog KwikPen DIABETES (U-100) Insulin) losartan 100 mg tablet 100 mg PO DAILY BP 02/27/22 12/23/24 History metoprolol tartrate 50 mg tablet 50 mg PO BID BP 02/27/22 12/23/24 History sertraline 50 mg tablet 75 mg PO QHS DEPRESSION 02/27/22 01/25/23 History sitagliptin phosphate 100 mg 100 mg PO DAILY DIABETES 02/27/22 12/23/24 History tablet (Januvia) hydroxyzine HCl 50 mg tablet 50 mg PO QHS SLEEP 01/20/23 12/21/24 History acetaminophen 500 mg tablet 500 mg PO Q6H PRN pain 12/23/24 Unknown History albuterol sulfate 90 mcg/actuation 1 - 2 puff inhalation Q6H PRN 12/23/24 Unknown History aerosol inhaler shortness of breath or wheezing gabapentin 600 mg tablet 600 mg PO BID 12/23/24 12/23/24 History insulin glargine 100 unit/mL (3 20 unit subcut DAILY 12/23/24 12/22/24 History mL) subcutaneous pen (Lantus Solostar U-100 Insulin) rosuvastatin 20 mg tablet 20 mg PO DAILY 12/23/24 12/23/24 History Allergy/AdvReac Type Severity Reaction Status Date / Time tramadol (From [facility]) AdvReac Severe Rash Verified 12/23/24 14:24 Family History Brother Kidney disease Mother Asthma Heart disease Hypertension Father Cancer Heart disease Hypertension Surgical History H/O coronary artery bypass surgery (03/09/07) History of angioplasty of peripheral vessel Social History Smoking Status: Light Smoker (<10/day) Tobacco: How many years used: 45 alcohol intake: current substance use type: does not use what type of physical activity do you participate in: walking frequency: daily glenroy/caodaism: Anabaptist seatbelt use: always ROS ROS ED ROS Narrative Hypoglycemia/confusion Review of Systems ROS Unobtainable: other Constitutional Constitutional ED: Reports lethargy; Denies chills, fever(s), sweats or weight loss Eyes Eyes: Denies blurry vision, change in vision or diplopia ENT ENT ED: Denies rhinorrhea or sore throat Cardiovascular Cardiovascular: Denies chest pain, orthopnea or racing heartbeat Respiratory/Chest Respiratory/Chest: Denies cough, dyspnea, dyspnea on exertion, orthopnea or sputum Gastrointestinal Gastrointestinal: Denies abdominal pain, diarrhea, nausea or vomiting Genitourinary Genitourinary ED: Denies dysuria, hematuria or urinary frequency Musculoskeletal Musculoskeletal: Denies arthralgias, back pain, myalgias or neck pain Integumentary Denies abscess, Abrasions or rash Neurologic Neurologic: Reports other Details: Confusion ; Denies headache(s) or weakness Psychiatric Psychiatric: Denies anxiety, depression or suicidal thoughts Endocrine Endocrinology: Denies polydipsia, polyphagia or polyuria Hematologic/Lymphatic Hematologic/Lymphatic: Denies easy bleeding, easy bruising or lymphadenopathy Allergic/Immunologic Allergic/Immunologic ED: Denies mouth swelling, tongue swelling or urticaria EXAM Physical Exam Const Vital Signs: 12/23/24 14:24 12/23/24 14:29 12/23/24 15:23 Temperature 98 F Temperature Source Oral Pulse Rate 70 60 Respiratory Rate 16 Respiratory Effort Normal Non-Labored Respiratory Pattern Normal Blood Pressure 153/64 H 163/62 H Blood Pressure Mean 93 95 Pulse Ox 95 Oxygen Delivery Method Room Air 12/23/24 16:00 Temperature Temperature Source Pulse Rate 60 Respiratory Rate Respiratory Effort Respiratory Pattern Blood Pressure 163/62 H Blood Pressure Mean 95 Pulse Ox Oxygen Delivery Method Positive well nourished and well developed General Appearance ED: well developed and NAD HEENT Reports TM's clear and moist mucous membranes normocephalic and atraumatic; Negative for trauma or tenderness Tympanic Membrane ED: Yes TM's clear Eyes PERRL and EOMs intact bilaterally General Eye ED: Negative for pale conjunctiva or scleral icterus Neck no lymphadenopathy, supple and no JVD General: Negative for tenderness Chest Wall inspection of chest normal and palpation of chest normal Chest: Negative for tenderness Resp normal respiratory effort and clear to auscultation bilaterally Effort and Inspection: Negative for respiratory distress or pain with movement Auscultation: Negative for rhonchi, wheezes or diminished lung sounds Cardio regular rate, regular rhythm, S1 normal heart sound, S2 normal heart sound and no murmurs Peripheral Pulses: pulses 2+ throughout GI normal to inspection, nondistended, normoactive bowel sounds, soft to palpation, non-tender, non-distended and no masses Back/Spine no CVA tenderness and no thoracic nor lumbar tenderness Extremity normal to inspection General Extremety ED: Negative for edema General Extremity: Negative for edema Neuro oriented x3, CN's II-XII intact bilaterally, no sensory deficits noted and gait normal Sensorium / Orientation: awake, alert, oriented to person, oriented to place and oriented to time Motor Exam: strength 5/5 throughout and strength abnormal Psych mental status grossly normal Skin no rashes or lesions noted and no wounds MDM MDM MDM Narrative Medical decision making narrative: Patient presents with hypoglycemic episode. He received a meal tray in the department. He was observed for about 3 hours and is latest blood sugar is 80. Patient feels well and is asking to be discharged to home. She does take long-acting as well as flank scale insulin. He also takes oral medications for diabetes. Patient advised to check his blood sugars frequently tonight. His significant other stays with him. Advised to cut his long-acting dose in half tonight and check his blood sugar before he goes to bed. Patient has not had any significant medication adjustments recently although he states insurance changed his long-acting insulin about a month ago but he had been doing fine until today. He did not eat today this morning and suspect may become hypoglycemic to the fact that he gave himself 7 units of regular insulin and he had not eaten. Advised to follow-up with his primary care physician within next 2 to 5 days Lab Data Attestation: I reviewed the patient's lab results. Labs: Laboratory Results - last 24 hr 12/23/24 12/23/24 12/23/24 15:08 15:32 16:09 POC Glucose 142 H 70 L 67 L Discharge Plan Triage Chief Complaint: Hypoglycemia ED Provider: Alli Garcia Dx/Rx/DC Orders Clinical Impression: Hypoglycemia Instructions: ED Diabetic Insulin Reaction Prescriptions: No Action sertraline 50 mg tablet 75 mg PO QHS losartan 100 mg tablet 100 mg PO DAILY insulin lispro [Humalog KwikPen Insulin] 100 unit/mL insulin pen See Protocol subcut USEASDIRECTD Protocol: 6. Sliding Scale Insulin Custom Condition: mg/dl range Dose/Route: Number of Units Protocol Text: Custom Sliding Scale Patient Comments: PT DOESNT KNOW ACTUAL SCALE, IF HE SEES HIS BS GOING UP, HE WILL TAKE A COUPLE UNITS Januvia 100 mg tablet 100 mg PO DAILY Jardiance 10 mg tablet 10 mg PO DAILY furosemide 40 MG tablet 40 mg PO DAILY clopidogrel 75 MG tablet 75 mg PO DAILY pantoprazole 40 MG tablet 40 mg PO DAILY metoprolol tartrate 50 mg tablet 50 mg PO BID hydroxyzine HCl 50 mg tablet 50 mg PO QHS rosuvastatin 20 mg tablet 20 mg PO DAILY acetaminophen 500 mg tablet 500 mg PO Q6H PRN (Reason: pain) albuterol sulfate 90 mcg/actuation HFA aerosol inhaler 1 - 2 puff INHALATION Q6H PRN (Reason: shortness of breath or wheezing) gabapentin 600 mg tablet 600 mg PO BID insulin glargine [Lantus Solostar U-100 Insulin] 100 unit/mL (3 mL) insulin pen 20 unit subcut DAILY Primary Care Provider: Elmira Danielle NP Referrals: Elmira Danielle NP, [employer]-[facility] [Primary Care Provider] - 3-5 Days Print Language: Israeli Disposition Disposition: Home, Self Care
[2024-12-23 15:23] VITALS: BP 163/62; PULSE 60
[2024-12-23 15:26] LABS: Bedside Glucose 142 mg/dL (74-106)
[2024-12-23 15:50] LABS: Bedside Glucose 70 mg/dL (74-106)
[2024-12-23 16:00] VITALS: BP 163/62; PULSE 60
[2024-12-23 16:28] LABS: Bedside Glucose 67 mg/dL (74-106)
[2024-12-23 17:20] VITALS: BP 131/64; PULSE 89; RESP 14; O2SAT 99
[2024-12-23 17:37] LABS: Bedside Glucose 80 mg/dL (74-106)
[2024-12-24 07:39] LABS: Bedside Glucose 120 mg/dL (74-106)
== END 2024-12-23 17:22 | disposition home or self-care (01) ==
PROVIDERS: Emergency Provider Emergency Medicine; PCP Nurse Practitioner Family; Visit Provider Emergency Medicine
DX: E11.649 Type 2 diabetes mellitus with hypoglycemia without coma (principal); Z79.4 Long term (current) use of insulin; E11.22 Type 2 diabetes mellitus with diabetic chronic kidney disease; N18.30 Chronic kidney disease, stage 3 unspecified; F41.9 Anxiety disorder, unspecified; F32.A Depression, unspecified; I25.10 Atherosclerotic heart disease of native coronary artery without angina pectoris; I12.9 Hypertensive chronic kidney disease with stage 1 through stage 4 chronic kidney disease, or unspecified chronic kidney disease; K21.9 Gastro-esophageal reflux disease without esophagitis; F17.200 Nicotine dependence, unspecified, uncomplicated; Z79.51 Long term (current) use of inhaled steroids; Z79.899 Other long term (current) drug therapy; Z86.73 Personal history of transient ischemic attack (TIA), and cerebral infarction without residual deficits; Z95.1 Presence of aortocoronary bypass graft
CPT/HCPCS: 82962; 99284

== ENCOUNTER 2025-04-19 15:05 | Emergency (ER) | payer MEDICARE, MEDICAID, SELFPAY ==
[2025-04-19 15:06] VITALS: BP 155/65; PULSE 59; RESP 18; TEMP 34.4; O2SAT 95; BMI 26.6
--- NOTE | 2025-04-19 15:41 | EKG12_ITS ---
Test Reason : AL LOC Blood Pressure : */* mmHG Vent. Rate : 57 BPM Atrial Rate : 57 BPM P-R Int : 176 ms QRS Dur : 98 ms QT Int : 464 ms P-R-T Axes : 52 53 85 degrees QTcB Int : 451 ms Sinus bradycardia Otherwise normal ECG Confirmed by Isael Jamison ([id number]), material expeditor BUTCH BARNETT ([id number]) on 04/20/2025 10:33:27 AM Referred By: Confirmed By: Isael Jamison
--- NOTE | 2025-04-19 15:56 | CT_ITS ---
PROCEDURE: BRAIN/HEAD WITHOUT CONTRAST 04/19/2025 REASON FOR EXAM: HEADACHE, AMS TECHNIQUE: Procedure Code: CTBR Modality: CT Procedure: BRAIN/HEAD WITHOUT CONTRAST Coronal and Sagittal reconstruction series were provided. One or more dose reduction techniques were used (e.g., Automated exposure control, adjustment of the mA and/or kV according to patient size, use of iterative reconstruction technique. FINDINGS: Focal low-attenuation in the cortex of the left occipital lobe likely represents old ischemia or gliosis from a previous injury. No acute intracranial hemorrhage. No midline shift. The unenhanced brain parenchyma appears otherwise unremarkable. No fracture. The calvarium is intact. The visualized paranasal sinuses and mastoid air cells are clear. CT/Brain/Head without Contrast IMPRESSION: No CT evidence of an acute intracranial abnormality. Reading Location: [id number]
--- NOTE | 2025-04-19 15:59 | EX.ED.DYSGE1 ---
HPI History of Present Illness Chief Complaint: Hypoglycemia Informant: patient and family Narrative Narrative: Patient is a 64-year-old male with history of insulin-dependent diabetes mellitus, prior stroke, dementia, hypertension, hyperlipidemia and CKD 3 as well as alcohol use presenting with episode of unresponsiveness and hypoglycemia. Per EMS reports patient was found slumped over in his car. Blood sugar was 43. Was given glucagon and blood sugar 80. Is now alert and oriented. Has been able to eat and drink since being in the ER. Patient did not even realize he was in his car when this happened. He reports that he did have a doctor's appointment today and they did discuss going down on his insulin. He states he has been having low episodes between the 60s and the 40s. He notes he did not eat today but did take his insulin. He is currently complaining of a diffuse headache and he states he is had a headache since waking up. Does have remote history of migraines. He denies any recent illnesses, GI or symptoms. No other complaints or concerns reported at this time. Family reports that he has a lot of chronic pain issues and does have difficulty with ambulation since his prior stroke he states it is more from his pain. [facility] Medical History History of stress test Wears dentures Depression Alcohol use Insulin dependent diabetes mellitus Diabetes High cholesterol Easy bruising Excessive bleeding Stroke/cerebrovascular accident Gastric reflux Smoker History of pain when walking Leg cramps History of edema History of echocardiogram Cardiology follow-up encounter Tobacco abuse Peripheral vascular occlusive disease History of ETOH abuse Essential hypertension Diabetes mellitus type II, controlled Atherosclerotic heart disease of [place] coronary artery without angina pectoris Chronic left ear pain Stage 3 chronic kidney disease Diabetic neuropathy Allergies GERD (gastroesophageal reflux disease) Chronic insomnia Anxiety Major depression in remission Carotid stenosis Hyperlipidemia Memory impairment History of stroke (10/30/21) Cataracts, bilateral Arthritis Home Medications ?Medication ?Instructions ?Recorded ?Last Taken ?Type clopidogrel 75 mg tablet 75 mg PO DAILY BLOOD THINNER 12/09/13 12/23/24 History furosemide 40 mg tablet 40 mg PO DAILY DIURETIC 12/09/13 12/23/24 History pantoprazole 40 mg tablet,delayed 40 mg PO DAILY GERD 12/09/13 12/23/24 History release empagliflozin 10 mg tablet 10 mg PO DAILY DIABETES 02/27/22 12/23/24 History (Jardiance) insulin lispro 100 unit/mL See Protocol subcut USEASDIRECTD 02/27/22 12/23/24 History subcutaneous pen (Humalog KwikPen DIABETES (U-100) Insulin) losartan 100 mg tablet 100 mg PO DAILY BP 02/27/22 12/23/24 History metoprolol tartrate 50 mg tablet 50 mg PO BID BP 02/27/22 12/23/24 History sertraline 50 mg tablet 75 mg PO QHS DEPRESSION 02/27/22 01/25/23 History sitagliptin phosphate 100 mg 100 mg PO DAILY DIABETES 02/27/22 12/23/24 History tablet (Januvia) hydroxyzine HCl 50 mg tablet 50 mg PO QHS SLEEP 01/20/23 12/21/24 History acetaminophen 500 mg tablet 500 mg PO Q6H PRN pain 12/23/24 Unknown History albuterol sulfate 90 mcg/actuation 1 - 2 puff inhalation Q6H PRN 12/23/24 Unknown History aerosol inhaler shortness of breath or wheezing gabapentin 600 mg tablet 600 mg PO BID 12/23/24 12/23/24 History insulin glargine 100 unit/mL (3 20 unit subcut DAILY 12/23/24 12/22/24 History mL) subcutaneous pen (Lantus Solostar U-100 Insulin) rosuvastatin 20 mg tablet 20 mg PO DAILY 12/23/24 12/23/24 History Allergy/AdvReac Type Severity Reaction Status Date / Time tramadol (From [facility]) AdvReac Severe Rash Verified 04/19/25 15:06 Family History Brother Kidney disease Mother Asthma Heart disease Hypertension Father Cancer Heart disease Hypertension Surgical History History of angioplasty of peripheral vessel H/O coronary artery bypass surgery (03/09/07) Social History Smoking Status: Light Smoker (<10/day) Tobacco: How many years used: 45 alcohol intake: current substance use type: does not use what type of physical activity do you participate in: walking frequency: daily glenroy/catholic: Bahai seatbelt use: always ROS ROS ED Constitutional Constitutional ED: Denies chills or fever(s) Eyes Eyes: Denies change in vision Cardiovascular Cardiovascular: Denies chest pain Respiratory/Chest Respiratory/Chest: Denies cough or dyspnea Gastrointestinal Gastrointestinal: Denies abdominal pain, nausea or vomiting Musculoskeletal Musculoskeletal: Reports arthralgias; Denies myalgias Integumentary Denies rash Neurologic Neurologic: Reports headache(s) and weakness; Denies paresthesias Psychiatric Psychiatric: Denies anxiety or depression Hematologic/Lymphatic Hematologic/Lymphatic: Denies easy bleeding or easy bruising EXAM Physical Exam Const Vital Signs: 04/19/25 15:06 04/19/25 15:14 04/19/25 16:05 Temperature 94 F L Temperature Source Oral Pulse Rate 59 L 70 Respiratory Rate 18 12 Respiratory Pattern Normal Blood Pressure 155/65 H 150/54 H Blood Pressure Mean 95 86 Pulse Ox 95 99 Oxygen Delivery Method Room Air Room Air 04/19/25 17:00 04/19/25 18:00 04/19/25 18:37 Temperature 97.6 F L Temperature Source Pulse Rate 62 62 62 Respiratory Rate 19 H 18 18 Respiratory Pattern Blood Pressure 155/62 H 176/65 H 176/65 H Blood Pressure Mean 93 102 102 Pulse Ox 96 98 98 Oxygen Delivery Method Room Air Room Air Positive well nourished and well developed General Appearance ED: well developed and NAD HEENT Reports dry mucous membranes Mouth ED: Yes dry mucous membranes Mouth: dry mucous membranes Eyes PERRL and EOMs intact bilaterally Neck supple General: Negative for tenderness Chest Wall inspection of chest normal and palpation of chest normal Resp normal respiratory effort and clear to auscultation bilaterally Cardio regular rate and regular rhythm GI normal to inspection, nondistended, normoactive bowel sounds and non-tender Extremity normal to inspection General Extremety ED: Negative for edema or tenderness General Extremity: Negative for edema Neuro oriented x3 and CN's II-XII intact bilaterally Sensorium / Orientation: alert Sensory Exam: No sensory level loss detected Motor Exam: strength 5/5 throughout; Negative for general weakness Psych mental status grossly normal Skin no rashes or lesions noted and no wounds MDM MDM MDM Narrative Medical decision making narrative: Patient evaluated for episode of unresponsiveness and hypoglycemia. Glucose improved while in the emergency room. Differential includes diabetic hypoglycemia, incorrect use of medication, poor p.o. intake, underlying infection, ALONSO and other electrolyte derangement. Is complaining of a headache and CT is added on to ensure he does not any intracranial hemorrhage. Is given Tylenol for his headache. Patient is given IV fluids as on exam he does have dry mucosal membranes. Work up obtained shows a mild leukocytosis of 11.5 which is inconclusive. He has no other source of infection however on urinalysis or chest x-ray. He does not have a fever in the emergency room. He has no left shift. CMP does not show mild bump in his creatinine 1.35 (baseline is 0.7-0.8). He was given IV fluids. Workup otherwise normal. No further hypoglycemia the emergency room and able to tolerate p.o. Patient was offered admission given he has some mild renal insufficiency in the setting of hypoglycemia however he declined saying he would really just want to go home and refuses to stay. Patient is given a full liter of IV fluids in the emergency room he does agree to that infusion. Patient did discuss cutting his insulin in half with his primary care doctor today. I will go from 20 units of his long-acting glargine to 10 units. Counseled on making sure he is getting enough fluids and also eating regularly. Patient and family verbalized agreement understand this plan. Is encouraged to return to emergency room should he have any recurrent symptoms or further concerns. Discharged home in stable and improved condition peer History & Record Review Additional record(s) reviewed:: Prior labs Lab Data Attestation: I reviewed the patient's lab results. Labs: Laboratory Results - last 24 hr 04/19/25 04/19/25 04/19/25 15:17 16:02 16:05 WBC 11.5 H RBC 4.51 L Hgb 14.3 Hct 42.5 MCV 94.2 H MCH 31.7 MCHC 33.6 RDW Std Deviation 45.4 H RDW Coeff of Sylvester 13.2 Plt Count 243 MPV 9.6 Immature Gran % (Auto) 0.400 Neut % (Auto) 59.4 Lymph % (Auto) 21.2 Glynn % (Auto) 6.4 Eos % (Auto) 11.4 H Baso % (Auto) 1.2 H Absolute Neuts (auto) 6.8 Absolute Lymphs (auto) 2.43 Nucleated RBC % 0 Sodium 138 Potassium 3.6 Chloride 101 Carbon Dioxide 23.9 Anion Gap 13 BUN 15 Creatinine 1.35 H Estim Creat Clear Calc 44.49 L Est GFR (MDRD) Non-Af 59 L BUN/Creatinine Ratio 11.0 Glucose 88 Calcium 9.8 Total Bilirubin 0.32 AST 15 ALT 8 Alkaline Phosphatase 90 Total Protein 7.6 Albumin 4.4 Globulin 3.2 Albumin/Globulin Ratio 1.4 Urine Color Yellow Urine Clarity Clear Urine pH 6.0 Ur Specific [place] 1.010 Urine Protein 30 H Urine Glucose (UA) 250 H Urine Ketones Negative Urine Occult Blood Negative Urine Nitrite Negative Urine Bilirubin Negative Urine Urobilinogen Normal Ur Leukocyte Esterase Negative Urine RBC 0-5 SEEN Urine WBC 0-5 SEEN Ur Squamous Epith Cells 0 SEEN Urine Bacteria 0 SEEN Urine Mucus 0 SEEN POC Glucose 167 H 04/19/25 17:19 WBC RBC Hgb Hct MCV MCH MCHC RDW Std Deviation RDW Coeff of Sylvester Plt Count MPV Immature Gran % (Auto) Neut % (Auto) Lymph % (Auto) Glynn % (Auto) Eos % (Auto) Baso % (Auto) Absolute Neuts (auto) Absolute Lymphs (auto) Nucleated RBC % Sodium Potassium Chloride Carbon Dioxide Anion Gap BUN Creatinine Estim Creat Clear Calc Est GFR (MDRD) Non-Af BUN/Creatinine Ratio Glucose Calcium Total Bilirubin AST ALT Alkaline Phosphatase Total Protein Albumin Globulin Albumin/Globulin Ratio Urine Color Urine Clarity Urine pH Ur Specific [place] Urine Protein Urine Glucose (UA) Urine Ketones Urine Occult Blood Urine Nitrite Urine Bilirubin Urine Urobilinogen Ur Leukocyte Esterase Urine RBC Urine WBC Ur Squamous Epith Cells Urine Bacteria Urine Mucus POC Glucose 142 H Radiography Chest X-Ray - ED: 1 View, Read by ED Physician, Read by Radiologist and No Acute Disease Diagnostic Testing: Clinical Impression(s) from Imaging Studies Brain CT 04/19/25 15:56 IMPRESSION: No CT evidence of an acute intracranial abnormality. Reading [id number] Chest [facility]-Ray 04/19/25 16:20 IMPRESSION: No acute cardiopulmonary disease. Reading Location: [id number] Rhythm Strip Rhythm Strip: Sinus Rhythm Rate: 57 Ectopy: None EKG Initial EKG: Attestation: I personally reviewed and interpreted this EKG as follows: Interpretation: Sinus Bradycardia Comments: Sinus bradycardia rate 57 bpm Normal axis Normal intervals Normal ST segments Compared to prior EKG on 02/22/2023?no acute change Prior EKG tracings: available for review Prior: Unchanged Discharge Plan Triage Chief Complaint: Hypoglycemia ED Provider: Aleyda Jolley Dx/Rx/DC Orders Clinical Impression: Hypoglycemia, Acute renal insufficiency Instructions: ED Hypoglycemia Oral Diabetic Med, ED Renal Insufficiency Prescriptions: No Action sertraline 50 mg tablet 75 mg PO QHS losartan 100 mg tablet 100 mg PO DAILY insulin lispro [Humalog KwikPen Insulin] 100 unit/mL insulin pen See Protocol subcut USEASDIRECTD Protocol: 6. Sliding Scale Insulin Custom Condition: mg/dl range Dose/Route: Number of Units Protocol Text: Custom Sliding Scale Patient Comments: PT DOESNT KNOW ACTUAL SCALE, IF HE SEES HIS BS GOING UP, HE WILL TAKE A COUPLE UNITS Januvia 100 mg tablet 100 mg PO DAILY Jardiance 10 mg tablet 10 mg PO DAILY furosemide 40 MG tablet 40 mg PO DAILY clopidogrel 75 MG tablet 75 mg PO DAILY pantoprazole 40 MG tablet 40 mg PO DAILY metoprolol tartrate 50 mg tablet 50 mg PO BID hydroxyzine HCl 50 mg tablet 50 mg PO QHS rosuvastatin 20 mg tablet 20 mg PO DAILY acetaminophen 500 mg tablet 500 mg PO Q6H PRN (Reason: pain) albuterol sulfate 90 mcg/actuation HFA aerosol inhaler 1 - 2 puff INHALATION Q6H PRN (Reason: shortness of breath or wheezing) gabapentin 600 mg tablet 600 mg PO BID insulin glargine [Lantus Solostar U-100 Insulin] 100 unit/mL (3 mL) insulin pen 20 unit subcut DAILY Primary Care Provider: Elmira Danielle NP Referrals: Elmira Danielle NP, [employer]-[facility] [Primary Care Provider] - Activity Restrictions/Additional Instructions: Decrease your insulin as discussed with your primary care doctor today. Make sure you are eating regularly and drinking plenty of fluids. Follow-up with your doctor later this week for recheck of your kidney function as you did have a mild elevation of your creatinine today. He did receive IV fluids for this. If you change your mind and feel that you would be better off admitted or start to have further concerns please return the emergency room Print Language: [place] Disposition Disposition: Home, Self Care Discharge Date/Time: 04/19/25 18:38
[2025-04-19 16:05] VITALS: BP 150/54; PULSE 70; RESP 12; O2SAT 99
[2025-04-19] MEDS: 0.9% Normal Saline (1000mL) 1,000 ML 999 ML IV (16:08)
[2025-04-19 16:10] LABS: Mucous, Urine 0 SEEN /hpf (<or=2+); Squamous Epithelial Cells - UA 0 SEEN /hpf (0-5)
--- NOTE | 2025-04-19 16:20 | RAD_ITS ---
PROCEDURE: CHEST 1 VIEW (PORTABLE) 04/19/2025 REASON FOR EXAM: HYPOGLYCEMIA ,AMS TECHNIQUE: Frontal view of the chest. COMPARISON: None. FINDINGS: Lungs/Pleura: Clear. No pneumothorax or sizable pleural effusion. Heart/Mediastinum: Normal in size. Evidence of prior CABG. Bones/Soft tissues: Sternotomy wires, otherwise unremarkable. RAD/Chest 1 View (Portable) IMPRESSION: No acute cardiopulmonary disease. Reading Location: [id number]
[2025-04-19 16:31] LABS: Hematocrit 42.5 % (40-54); Hemoglobin 14.3 g/dL (13.0-16.5); Immature Granulocytes Count 0.050 X10^3/uL (0.0-0.0); Mean Corp Hgb Conc 33.6 g/dL (32-36); Mean Corpuscular Volume 94.2 fL (80-94); Mean Platelet Vol. 9.6 fl (6.2-12.0); NRBC Flagged by Analyzer 0 % (0-5); Platelet Count 243 K/mm3 (150-450); RBC Distribution Width CV 13.2 % (11.6-14.6); RBC Distribution Width SD 45.4 fl (35.1-43.9); Red Blood Count 4.51 M/mm3 (4.6-6.2); White Blood Count 11.5 K/mm3 (4.4-11.0)
[2025-04-19 16:42] LABS: AST(SGOT) 15 U/L (<=37); Alanine Aminotransfer ALT/SGPT 8 U/L (<=46); Albumin, Serum 4.4 g/dL (3.4-4.8); Alkaline Phosphatase 90 U/L (40-129); Anion Gap 13 (5-15); BUN 15 mg/dL (4-19); BUN/Creat Ratio 11.0 RATIO (10-20); Calcium,Total 9.8 mg/dL (7.6-11.0); Carbon Dioxide 23.9 mmol/L (21.0-32.0); Chloride 101 mmol/L (98-108); Estimated Creatinine Clearance 44.49 ml/min (50-250); Globulin 3.2 g/dL (2.2-4.2); Glucose 88 mg/dL (70-99); Potassium 3.6 mmol/L (3.3-5.1)
[2025-04-19 17:00] VITALS: BP 155/62; PULSE 62; RESP 19; O2SAT 96
[2025-04-19 17:24] LABS: Color, Urine Yellow (Yellow); Glucose, Dipstick 250 mg/dl (Normal); Ketone-Dipstick Negative (Negative); Leukocyte Esterase-Dipstick Negative /ul (Negative); Nitrite-Dipstick Negative (Negative); Occult Blood-Urine Negative /ul (Negative); Protein-Dipstick 30 mg/dl (Negative); Specific Gravity, Urine 1.010 (1.002-1.030); Urine Bilirubin Dipstick Negative (Negative)
[2025-04-19 18:00] VITALS: BP 176/65; PULSE 62; RESP 18; O2SAT 98
[2025-04-19 18:37] VITALS: BP 176/65; PULSE 62; RESP 18; TEMP 36.4; O2SAT 98
[2025-04-19 18:54] LABS: Red Blood Cells-Urine 0-5 SEEN /hpf (0-5)
--- OUTSIDE RECORDS SUMMARY | 2025-04-19 23:32 | XMS RPT_ITS | CCD ---
Author Organization [facility] CliniSyil Care Team Providers Care Analytics Manager Name Role Phone Unavailable Primary Care Provider UnavailDr. Nadya Dill Primary Care Provider Dr. Nadya Kenney Referring Provider GUILLAUME Hart Attending Provider Shashi FACILITIES AND GROUNDS DIRECTOR, FACILITIES AND GROUNDS DIRECTOR-C Nadya Primary Care Provider Dr. Basil Cartagena Attending Provider Dr. Basil Cartagena Referring Provider Shashi FACILITIES AND GROUNDS DIRECTOR, FACILITIES AND GROUNDS DIRECTOR-C Nadya Referring Provider [phone] David Cohen Attending Provider Dr. David Cohen Referring Provider Dr. David Cohen Other Provider Dr. Basil Cartagena Admit Provider Dr. Basil Cartagena Other Provider Shashi FACILITIES AND GROUNDS DIRECTOR-C, Nadya Primary Care Provider Dr. Alli Garcia DO Emergency Provider Alli Garcia Attending Unavailable Nadya Valentin NP Primary Care Unavailable Dr. Alli Garcia DO Attending Provider Dr. Aleyda Jolley DO Emergency Provider NADYA VALENTIN Consulting Unavailable AISHWARYASAULO SULLIVAN Admitting Unavailable NADYA VALENTIN Referring Unavailable AISHWARYASAULO Primary Care Unavailable AISHWARYASAULO PRICE Attending Unavailable PROVIDER, UNKNOWN Consulting Unavailable SHASHI, NADYA Consulting Unavailable SHASHI, NADYA Admitting Unavailable NADYA VALENTIN Attending Unavailable SHASHI, NADYA Primary Care Unavailable PROVIDER, UNKNOWN Consulting Unavailable SHASHI, NADYA Primary Care Unavailable SHASHI, NADYA Consulting Unavailable SHASHI, NADYA Attending Unavailable SHASHI, NADYA Admitting Unavailable PROVIDER, UNKNOWN Consulting Unavailable SHASHI, NADYA Consulting Unavailable SHASHI, NADYA Attending Unavailable SHASHI, NADYA Admitting Unavailable SHASHI, NADYA Primary Care Unavailable PROVIDER, UNKNOWN Consulting Unavailable SHASHI, NADYA Primary Care Unavailable SHASHI, NADYA Attending Unavailable SHASHI, NADYA Consulting Unavailable SHASHI, NADYA Admitting Unavailable PROVIDER, UNKNOWN Consulting Unavailable SHASHI, NADYA Primary Care Unavailable SHASHI, NADYA Consulting Unavailable SHASHI, NADYA Attending Unavailable SHASHI, NADYA Admitting Unavailable PROVIDER, UNKNOWN Consulting Unavailable SHASHI, NADYA Primary Care Unavailable SHASHI, NADYA Consulting Unavailable SHASHI, NADYA Attending Unavailable SHASHI, NADYA Admitting Unavailable PROVIDER, UNKNOWN Consulting Unavailable AISHWARYA, SAULO Amrit Attending Unavailable SHASHI, NADYA Consulting Unavailable SHASHI, NADYA Referring Unavailable AISHWARYA, SAULO E Admitting Unavailable AISHWARYA, SAULO E Primary Care Unavailable PROVIDER, UNKNOWN Consulting Unavailable Allergies Allergy Classification Reported Allergen(s) Allergy Type Date of Onset Reaction(s) Facility (8 sources) [facility] Drug Allergy 11-18-2020 Alicia HAGEN Work Phone: (1 source) [facility] Drug Allergy 2024 [facility] Repository (1 source) [facility] Drug Allergy [facility] Repository Medications Current Medications Medication Drug Class(es) Dates Sig (Normalized) Sig (Original) acetaminophen 500 mg oral tablet (3 sources) Start: 2024 take 1 tablet by mouth every six hours as needed for pain Acetaminophen 500 mg tablet Active 500 mg PO EVERY 6 HOURS as needed for pain 2024 12:00am Start: 11-18-2020 acetaminophen (TYLENOL) tablet 650 mg [id number] 200 actuat albuterol 0.09 mg/actuat metered dose inhaler (2 sources) beta2-Adrenergic Agonist Start: 2024 Albuterol Sulfate 90 mcg/actuation HFA aerosol inhaler Active 1 - 2 NMA INHALATION EVERY 6 HOURS as needed for shortness of breath or wheezing 2024 12:00am clopidogrel 75 mg oral tablet (8 sources) [id number] Platelet Inhibitor Start: 12-09-2013 take 1 tablet by mouth once daily Clopidogrel 75 MG tablet Active 75 mg PO DAILY December 09, 2013 12:00am BLOOD THINNER empagliflozin 10 mg oral tablet (7 sources) Sodium-Glucose Cotransporter 2 Inhibitor Start: 02-27-2022 take 1 tablet by mouth once daily Empagliflozin (Jardiance) 10 mg tablet Active 10 mg PO DAILY February 27, 2022 12:00am DIABETES fenofibrate 67 mg oral capsule (1 source) Peroxisome Proliferator Receptor alpha Agonist take 1 capsule by mouth once daily before breakfast fenofibrate micronized (LOFIBRA) 67 MG capsule Take 67 mg by mouth every morning (before breakfast) 0 Active fluticasone propionate 0.05 mg/actuat metered dose nasal spray (2 sources) Corticosteroid Start: 11-18-2020 take 1 spray(s) nasal route once daily 1 spray, Each Nostril, DAILY, First dose on 11/18/20 at 1315 take 1 spray(s) nasal route once daily fluticasone (FLONASE) 50 MCG/ACT nasal spray 1 spray by Each Nostril route daily 0 Active furosemide 40 mg oral tablet (7 sources) Loop Diuretic Start: 12-09-2013 take 1 tablet by mouth once daily Furosemide 40 MG tablet Active 40 mg PO DAILY December 09, 2013 12:00am DIURETIC gabapentin 600 mg oral tablet (16 sources) Anti-epileptic Agent Start: 2024 take 1 tablet by mouth twice daily Gabapentin 600 mg tablet Active 600 mg PO TWICE A DAY 2024 12:00am Start: 12-18-2022 End: 2024 take 2 capsules by mouth once daily Gabapentin 300 mg capsule Discontinued 600 mg PO DAILY December 18, 2022 10:05am 2024 4:11pm NERVE PAIN Start: 12-18-2022 take 600 mg by mouth once angel y Gabapentin Active 600 MG PO DAILY December 18, 2022 9:05am Start: 12-18-2022 take 600 mg by mouth twice evgeny ly Gabapentin Active 600 MG PO TWICE A DAY December 18, 2022 10:05am Start: 02-27-2022 End: 12-18-2022 take 1 capsule by mouth three times daily Gabapentin 300 mg capsule Discontinued 300 mg PO THREE TIMES A DAY February 27, 2022 12:00am December 18, 2022 10:08am glucagon (rdna) 1 mg injection (1 source) Antihypoglycemic Agent Start: 11-18-2020 glucago n (rDNA) injection 1 mg 1000 ml glucose 500 mg/ml injection (3 sources) Start: 11-18-2020 dextrose 50 % IV solution Start: 11-18-2020 dextrose 5 % s olution Start: 11-18-2020 glucose (GLUTO SE) 40 % oral gel 15 g hydrOXYzine hydrochloride 50 mg oral tablet (6 sources) Antihistamine Start: 01-20-2023 take 1 tablet by mouth at bedtime Hydroxyzine Hcl 50 mg tablet Active 50 mg PO AT BEDTIME January 20, 2023 12:00am SLEEP 3 ml insulin glargine 100 unt/ml pen injector (9 sources) Insulin Analog Start: 2024 Insulin Glargi ne (Insulin Glargine 100 Unit/Ml (3 Ml) Subcutaneous Pen) 100 unit/mL (3 mL) insulin pen Active 20 U SC DAILY 2024 12:00am Start: 12-09-2013 End: 02-27-2022 Insulin Glargine (Lantus Jenn ostar Pen) 100 UNITS/ML insulin pen Discontinued 50 U SC AT BEDTIME December 09, 2013 12:00am February 27, 2022 1:28pm Start: 12-09-2013 End: 02-27-2022 Insulin Glargine (Lantus Jenn ostar Pen) 100 UNITS/ML insulin pen Discontinued 50 UNITS SC AT BEDTIME December 08, 2013 11:00pm February 27, 2022 12:28pm 3 ml insulin lispro 100 unt/ml pen injector (7 sources) Insulin Analog Start: 02-27-2022 Insulin Lispro (Humalog Kwikpen Insulin) 100 unit/mL insulin pen Active 0 sliding scale dose SC Use as Directed February 27, 2022 12:00am DIABETES Please contact the information source for Protocol details. Start: 02-27-2022 Insulin Lispro (Humalog Kwikpen Insulin) 100 unit/mL insulin pen Active 1 sliding scale dose SC Use as Directed February 26, 2022 11:00pm LORazepam (1 source) Benzodiazepine Start: 11-18-2020 LORazepam (ATIVAN) tablet 1 mg losartan potassium 100 mg oral tablet (9 sources) Angiotensin 2 Receptor Ric Start: 02-27-2022 take 1 tablet by mouth once daily Losartan 100 mg tablet Active 100 mg PO DAILY February 27, 2022 12:00am BP Start: 11-18-2020 take 100 mg by mouth once angel y 100 mg, Oral, DAILY, First dose on 11/18/20 at 1315 metoprolol tartrate 50 mg oral tablet (16 sources) beta-Adrenergic Ric Start: 02-27-2022 take 1 tablet by mouth twice daily Metoprolol Tartrate 50 mg tablet Active 50 mg PO TWICE A DAY February 27, 2022 1:25pm BP Start: 11-18-2020 take 50 mg by mouth twice angel y 50 mg, Oral, 2 TIMES DAILY, First dose on 11/18/20 at 1315 Start: 12-09-2013 End: 02-27-2022 take 1 tablet by mouth once daily Metoprolol Tartrate 50 MG tablet Discontinued 50 mg PO DAILY December 09, 2013 12:00am February 27, 2022 1:28pm 24 hr nicotine 0.875 mg/hr transdermal system (1 source) Cholinergic Nicotinic Agonist Start: 11-18-2020 nicotine (NICODERM CQ) 21 MG/24HR 1 patch pantoprazole 40 mg delayed release oral tablet (7 sources) Proton Pump Inhibitor Start: 12-09-2013 take 1 tablet by mouth once daily Pantoprazole 40 MG tablet Active 40 mg PO DAILY December 09, 2013 12:00am GERD pantoprazole (PROTONIX) injection 40 mg (1 source) Start: 11-18-2020 pantoprazole (PROTONIX) injection 40 mg Promethazine (1 source) Phenothiazine Start: 11-18-2020 promethazine (PHENERGAN) tablet 12.5 mg regular insulin, human 100 unt/ml injectable solution (1 source) Insulin Start: 11-18-2020 insulin regular (HUMULIN R;NOVOLIN R) injection 0-6 Units rimegepant 75 mg disintegrating oral tablet (1 source) Start: 02-11-2022 take 1 tablet by mouth once daily Rimegepant (Nurtec Odt) 75 mg tablet,disintegra ting Active 75 MG PO DAILY February 11, 2022 12:00am rOPINIRole 0.5 mg oral tablet (1 source) Nonergot Dopamine Agonist Start: 02-11-2022 take 0.5 mg by mouth at bedtime Ropinirole Active 0.5 MG PO AT BEDTIME February 11, 2022 12:00am rosuvastatin calcium 20 mg oral tablet (20 sources) HMG-CoA Reductase Inhibitor Start: 2024 take 1 tablet by mouth once daily Rosuvastatin 20 mg tablet Active 20 mg PO DAILY 2024 12:00am Start: 12-18-2022 End: 2024 Rosuvastatin 40 mg tablet Discontinued 20 mg PO DAILY December 18, 2022 10:07am 2024 4:09pm CHOLESTEROL Start: 12-18-2022 take 20 mg by mouth once daily Rosuvastatin Active 20 MG PO DAILY December 18, 2022 9:07am Start: 02-27-2022 End: 12-18-2022 take 1 tablet by mouth once daily Rosuvastatin 40 mg tablet Discontinued 40 mg PO DAILY February 27, 2022 12:00am December 18, 2022 10:08am Start: 12-09-2013 End: 02-27-2022 take 1 tablet by mouth once daily Rosuvastatin 10 MG tablet Discontinued 10 mg PO DAILY December 09, 2013 12:00am February 27, 2022 1:26pm sertraline 50 mg oral tablet (7 sources) Serotonin Reuptake Inhibitor Start: 02-27-2022 Sertraline 50 mg tablet Active 75 mg PO AT BEDTIME February 27, 2022 12:00am DEPRESSION Start: 02-27-2022 take 75 mg by mouth at bedtime Sertraline Active 75 MG PO AT BEDTIME February 26, 2022 11:00pm SITagliptin 100 mg oral tablet (7 sources) Dipeptidyl Peptidase 4 Inhibitor Start: 02-27-2022 take 1 tablet by mouth once daily Sitagliptin Phosphate (Januvia) 100 mg tablet Active 100 mg PO DAILY February 27, 2022 12:00am DIABETES 1000 ml sodium chloride 9 mg/ml injection (3 sources) Start: 11-18-2020 0.9 % sodium chloride infusion Start: 11-18-2020 sodium chlorid e flush 0.9 % injection 10 mL Completed/Discontinued Medications Medication Drug Class(es) Dates Sig (Normalized) Sig (Original) apixaban 5 mg oral tablet (7 sources) Factor Xa Inhibitor Start: 02-27-2022 End: 03-06-2022 take 1 tablet by mouth twice daily Apixaban (Eliquis) 5 mg tablet Discontinued 5 mg PO TWICE A DAY February 27, 2022 12:00am March 06, 2022 10:57am calcium chloride 0.0014 meq/ml / potassium chloride 0.004 meq/ml / sodium chloride 0.103 meq/ml / sodium lactate 0.028 meq/ml injectable solution (1 source) Start: 11-18-2020 End: 11-18-2020 lactated ringers infusion citalopram 20 mg oral tablet (7 sources) Serotonin Reuptake Inhibitor Start: 12-09-2013 End: 02-27-2022 take 1 tablet by mouth once daily Citalopram 20 MG tablet Discontinued 20 mg PO DAILY December 09, 2013 12:00am February 27, 2022 1:27pm diazePAM 2 mg oral tablet (6 sources) Benzodiazepine Start: 01-23-2023 End: 01-28-2023 take 1 tablet by mouth once daily as needed for sleep Diazepam (Valium) 2 mg tablet Discontinued 2 mg PO DAILY as needed for sleep 4 0 January 23, 2023 12:00am January 28, 2023 11:33am Anxiety Insomnia Anxiety disorder, unspecified Insomnia, unspecified insulin detemir 100 unt/ml injectable solution (7 sources) Insulin Analog Start: 02-27-2022 End: 2024 Insulin Detemir U-100 (Levemir U-100 Insulin) 100 unit/mL solution Discontinued 70 U SC AT BEDTIME February 27, 2022 12:00am 2024 4:14pm DIABETES insulin isophane, human 70 unt/ml / insulin, regular, human 30 unt/ml injectable suspension (7 sources) Insulin Start: 12-09-2013 End: 02-27-2022 Insulin Nph And Regular Human (Novolin 70-30 100 Unit/Ml Vial) 100 UNIT/ML suspension Discontinued 100 U SQ December 09, 2013 12:00am February 27, 2022 1:28pm lisinopril 10 mg oral tablet (7 sources) Angiotensin Converting Enzyme Inhibitor Start: 12-09-2013 End: 02-27-2022 take 1 tablet by mouth once daily Lisinopril 10 MG tablet Discontinued 10 mg PO DAILY December 09, 2013 12:00am February 27, 2022 1:23pm oxyCODONE hydrochloride 5 mg oral tablet (6 sources) Opioid Agonist Start: 01-28-2023 End: 2024 take 1 tablet by mouth every eight hours as needed for pain Oxycodone 5 mg tablet Discontinued 5 mg PO Q8H as needed for pain 9 3 0 January 28, 2023 2024 4:08pm History of left-sided carotid endarterectomy Postoperative pain Other specified postprocedural states Other acute postprocedural pain tiZANidine 4 mg oral tablet (7 sources) Central alpha-2 Adrenergic Agonist Start: 12-09-2013 End: 02-27-2022 take 1 tablet by mouth once daily Tizanidine (Zanaflex) 4 MG tablet Discontinued 4 mg PO DAILY December 09, 2013 12:00am February 27, 2022 1:28pm Problems Active Problems Problem Classification Problem Date Documented Date Episodic/Chronic Anxiety disorders (6 sources) Anxiety; Translations: [Anxiety disorder, unspecified] 01-23-2023 Chronic Asthma (1 source) Unspecified asthma, uncomplicated; Translations: [Unspecified asthma, uncomplicated] Onset: 06-15-2024 Chronic Chronic kidney disease (7 sources) Chronic kidney disease stage 3; Translations: [Stage 3 chronic kidney disease] 03-05-2022 Chronic Coronary atherosclerosis and other heart disease (8 sources) Coronary atherosclerosis; Translations: [Atherosclerotic heart disease of [place] coronary artery without angina pectoris] Onset: 06-15-2024 03-05-2022 Chronic Delirium, dementia, and amnestic and other cognitive disorders (7 sources) Dementia; Translations: [Unspecified dementia without behavioral disturbance] 03-05-2022 Chronic Diabetes mellitus with complications (2 sources) Type 2 diabetes mellitus with hypoglycemia without coma; Translations: [Type 2 diabetes mellitus with unspecified complications] Onset: 12-28-2024 Chronic Diabetes mellitus without complication (8 sources) Type 2 diabetes mellitus; Translations: [Type 2 diabetes mellitus without complications] Onset: 06-15-2024 03-05-2022 Chronic Disorders of lipid metabolism (8 sources) Hyperlipidemia; Translations: [Hyperlipidemia, unspecified] Onset: 04-19-2025 03-05-2022 Chronic Essential hypertension (8 sources) Essential hypertension; Translations: [Essential (primary) hypertension] Onset: 04-19-2025 03-05-2022 Chronic Comment on above: CONTROLLED ON MED Headache; including migraine (7 sources) Migraine without aura; Translations: [Migraine without aura, not intractable, without status migrainosus] 03-05-2022 Chronic Occlusion or stenosis of precerebral arteries (20 sources) Carotid artery stenosis; Translations: [Occlusion and stenosis of unspecified carotid artery] 12-18-2022 Chronic Osteoarthritis (1 source) Unspecified osteoarthritis, unspecified site; Translations: [Unspecified osteoarthritis, unspecified site] Onset: 06-15-2024 Chronic Other and ill-defined cerebrovascular disease (7 sources) Cerebrovascular disease; Translations: [Cerebrovascular disease, unspecified] 03-05-2022 Chronic Other diseases of kidney and ureters (1 source) Acute renal insufficiency; Translations: [Disorder of kidney and ureter, unspecified] 04-19-2025 Episodic Other ear and sense organ disorders (7 sources) Hearing loss; Translations: [Unspecified hearing loss, unspecified ear] 03-05-2022 Chronic Other ear and sense organ disorders (7 sources) Otalgia, left ear; Translations: [Chronic left ear pain] 03-05-2022 Episodic Other ear and sense organ disorders (7 sources) Tinnitus; Translations: [Tinnitus, unspecified ear] 03-05-2022 Episodic Other endocrine disorders (3 sources) Hypoglycemia; Translations: [Hypoglycemia, unspecified] 2024 Chronic Other hereditary and degenerative nervous system conditions (7 sources) Restless legs; Translations: [Restless legs syndrome] 03-05-2022 Chronic Other nervous system disorders (7 sources) Polyneuropathy; Translations: [Polyneuropathy, unspecified] 03-05-2022 Chronic Other nervous system disorders (6 sources) Postoperative pain ; Translations: [Other acute postprocedural pain] 01-28-2023 Episodic Peripheral and visceral atherosclerosis (14 sources) Peripheral vascular disease; Translations: [Peripheral vascular disease, unspecified] 12-18-2022 Chronic Residual codes; unclassified (7 sources) Tobacco user; Translations: [Tobacco use] 03-06-2022 Episodic Residual codes; unclassified (6 sources) Insomnia; Translations: [Insomnia, unspecified] 01-23-2023 Episodic Substance-related disorders (1 source) Nicotine dependence, unspecified, uncomplicated; Translations: [Nicotine dependence, unspecified, uncomplicated] Onset: 06-15-2024 Chronic Past or Other Problems Problem Classification Problem Date Documented Date Episodic/Chronic Coronary atherosclerosis and other heart disease (1 source) Presence of coronary angioplasty implant and graft; Translations: [Presence of coronary angioplasty implant and graft] Onset: 06-15-2024 Episodic Other circulatory disease (7 sources) History of cerebrovascular accident; Translations: [Personal history of transient ischemic attack (TIA), and cerebral infarction without residual deficits] Onset: 10-30-2021 03-05-2022 Episodic Comment on above: ischemic cerebral [facility] Other circulatory disease (1 source) Personal history of transient ischemic attack (TIA), and cerebral infarction without residual deficits; Translations: [Personal history of transient ischemic attack (TIA), and cerebral infarction without residual deficits] Onset: 06-15-2024 Episodic Other connective tissue disease (1 source) Pain in right upper arm; Translations: [Pain in right upper arm] Onset: 06-15-2024 Episodic Other non-traumatic joint disorders (3 sources) Pain in right shoulder; Translations: [Pain in right shoulder] Onset: 06-15-2024 Episodic Other screening for suspected conditions (not mental disorders or infectious disease) (1 source) Encounter for screening for malignant neoplasm of prostate; Translations: [Encounter for screening for malignant neoplasm of prostate] Onset: 10-13-2024 Episodic Results Test Name Value Interpretation Reference Range Facility Absolute lymphocyte countOrd ered By: Aleyda Jolley on 04-19-2025 Lymphocytes Auto (Unsp spec) [#/Vol] 2.43 10*3/uL 0.83-4.51 [facility] Absolute neutrophil countOrd ered By: Aleyda Jolley on 04-19-2025 Neutrophils (Bld) [#/Vol] 6.8 10*3/uL 2.0-7.7 [facility] Anion gap in Serum or Plasma Ordered By: Aleyda Jolley on 04-19-2025 Anion gap [Moles/Vol] 13 mmol/L 5-[address] [facility] Automated lymphocyte count a s percentage of total leukocytesOrdered By: Aleyda Jolley on 04-19-2025 Lymphocytes/100 WBC Auto (Unsp spec) 21.2 % [facility] BUN/creatinine ratioOrdered By: Aleyda Jolley on 04-19-2025 Urea nitrogen/Creatinine [Mass ratio] 11.0 mg/mg 10- [facility] Basophil percentageOrdered B y: Aleyda Jolley on 04-19-2025 Basophils/100 WBC (Bld) 1.2 % High 0-1 [facility] Bilirubin Test strip Ql (U)O rdered By: Aleyda Jolley on 04-19-2025 Bilirubin Ql (U) Negative Negative [facility] Bilirubin, totalOrdered By: Aleyda Jolley on 04-19-2025 Bilirubin [Mass/Vol] 0.32 mg/dL 0.00-1.30 [facility] CBC (NO DIFF)on 04-19-2025 CBC panel Auto (Bld) Normal [facility] Comment on above: Result Comment: CBC( WITHOUT DIFFERENTIAL) Performed By: #### [id number] #### [facility],[address] [place] [address] Erythrocyte distribution width (RBC) [Ratio] 13.1 % Normal 12.0 - 15.6 [facility] Comment on above: Performed By: #### 2 [id number] #### [facility],[address] [place], [place] [id number] Hematocrit (Bld) [Volume fraction] 43.8 % Normal 40.0 - 52.0 [facility] Comment on above: Performed By: #### 2 [id number] #### [facility],[address] [place] [address]70 Hemoglobin (Bld) [Mass/Vol] 15.0 g/dL Normal 13.0 - 17.5 [facility] Comment on above: Performed By: #### 2 [id number] #### [facility],[address] [place] [address]38 MCH (RBC) [Entitic mass] 32 pg Normal 27 - 33 [facility] Comment on above: Performed By: #### 2 [id number] #### [facility],[address] [place] [address] 67763 MCHC 34 X10 3 Normal 32 - 36 [facility] Comment on above: Performed By: #### 2 [id number] #### [facility],[address] [place] [address] 76816 MCV (RBC) [Entitic vol] 95 fL Normal 81 - 98 [facility] Comment on above: Performed By: #### 2 [id number] #### [facility],[address] [place] [address] 62513 PLATELET 247 x10EE3/UL Normal 150 - 450 [facility] Comment on above: Performed By: #### 2 [id number] #### [facility],[address] [place] [address] 97372 Platelet mean volume (Bld) [Entitic vol] 7.7 fL Normal 6.4 - 10.5 [facility] Comment on above: Performed By: #### 2 [id number] #### [facility],[address] [place], [place] [id number] RBC 4.63 x 10EE6/UL Normal 4.50 - 6.00 [facility] Comment on above: Performed By: #### 2 [id number] #### [facility],[address] [place] [address] 82967 WBC 9.4 x 10EE3/UL Normal 4.5 - 10.8 [facility] Comment on above: Performed By: #### 2 [id number] #### [facility],[address] [place] [address]2395 CMP with eGFRon 04-19-2025 AGE 64 years Normal [facility] Comment on above: Performed By: #### 2 [id number] #### [facility],[address] [place] [address] 25714 Albumin [Mass/Vol] 4.0 g/dL Normal 3.4 - 5.0 [facility] Comment on above: Performed By: #### 2 [id number] #### [facility],[address] [place] [address] 62403 Albumin/Globulin [Mass ratio] 1.3 {ratio} Normal 0.9 - 1.6 [facility] Comment on above: Performed By: #### 2 [id number] #### [facility],[address] [place] [address] 66199 ALK PHOS 95 U/L Normal 46 - 116 [facility] Comment on above: Performed By: #### 2 [id number] #### [facility],[address] [place] [address] 30330 ALT [Catalytic activity/Vol] 12 U/L Low 16 - 63 [facility] Comment on above: Performed By: #### 2 [id number] #### [facility],[address] [place] [address] 21564 Anion gap [Moles/Vol] 12 mmol/L Normal 10 - 20 [facility] Comment on above: Performed By: #### 2 [id number] #### [facility],[address] [place] [address] 59735 AST [Catalytic activity/Vol] 14 U/L Low 15 - 37 [facility] Comment on above: Performed By: #### 2 [id number] #### [facility],[address] [place] [address] 08940 B/C RATIO 11 ratio Normal 0 - 30 [facility] Comment on above: Performed By: #### 2 [id number] #### [facility],[address] [place] [address] 72902 Bilirubin [Mass/Vol] 0.4 mg/dL Normal 0.2 - 1.0 [facility] Comment on above: Performed By: #### 2 [id number] #### [facility],[address] [place] [address] 18697 Calcium [Mass/Vol] 9.4 mg/dL Normal 8.5 - 10.1 [facility] Comment on above: Performed By: #### 2 [id number] #### [facility],[address] [place] [address] 28541 Chloride [Moles/Vol] 101 mmol/L Normal 98 - 107 [facility] Comment on above: Performed By: #### 2 [id number] #### [facility],[address] [place] [id number] CMP with eGFR Normal [facility] Comment on above: Result Comment: COMP REHENSIVE METABOLIC PANEL Performed By: #### 2 [id number] #### [facility],[address] [place] [address]10 CO2 [Moles/Vol] 30.7 mmol/L Normal 21.0 - 32.0 [facility] Comment on above: Performed By: #### 2 [id number] #### [facility],[address] [place] [address] 24277 Creatinine [Mass/Vol] 1.31 mg/dL High 0.70 - 1.30 [facility] Comment on above: Performed By: #### 2 [id number] #### [facility],[address] [place] [address] 36541 eGFR 55 ML/MINUTE Low 60 - 999 [facility] Comment on above: Performed By: #### 2 [id number] #### [facility],[address] [place] [address] 06301 GFR/1.73 sq M.predicted among non-blacks MDRD (S/P/Bld) [Vol rate/Area] mL/min/{1.73_m2} Normal 60 - 999 [facility] Comment on above: Result Comment: ACCO RDING TO THE NATIONAL KIDNEY DISEASE EDUCATION PROGRAM(NKDE), A NORMAL eGFR IS A VALUE GREATER THAN OR EQUAL TO 60 ML/MIN/1.73 SQ METERS. CHRONIC KIDNEY DISEASE: <60mL/MIN/1.73 SQ METERS KIDNEY FAILURE: <15mL/MIN/1.73 SQ METERS THIS TEST SHOULD ONLY BE USED FOR PATIENTS 18 YEARS OF AGE AND OLDER. Performed By: #### 2 [id number] #### [facility],[address] [place] [address]5711 Globulin (S) [Mass/Vol] 3.1 g/dL Normal 1.5 - 3.8 [facility] Comment on above: Performed By: #### 2 [id number] #### [facility],[address] [place] [address] 08080 Glucose [Mass/Vol] 87 mg/dL Normal 74 - 106 [facility] Comment on above: Performed By: #### 2 [id number] #### [facility],[address] [place] [address] 17316 Potassium [Moles/Vol] 4.8 mmol/L Normal 3.5 - 5.1 [facility] Comment on above: Performed By: #### 2 02738 #### [facility],[address] [place] [address] 71673 Protein [Mass/Vol] 7.1 g/dL Normal 6.4 - 8.2 [facility] Comment on above: Performed By: #### 2 [id number] #### [facility],[address] [place] [address] 85235 Sodium [Moles/Vol] 139 mmol/L Normal 136 - 145 [facility] Comment on above: Performed By: #### 2 90660 #### [facility],[address] [place] [address] 03640 Urea nitrogen [Mass/Vol] 15 mg/dL Normal 7 - 18 [facility] Comment on above: Performed By: #### 2 [id number] #### [facility],[address] [place] [address] 33622 Carbon dioxide, total [Moles /volume] in Central venous bloodOrdered By: Aleyda Jolley on 04-19-2025 CO2 [Moles/Vol] 23.9 mmol/L 21.0-32.0 [facility] Chloride assayOrdered By: Long Jolley on 04-19-2025 Chloride [Moles/Vol] 101 mmol/L 98-108 [facility] Eosinophil percentageOrdered By: Aleyda Jolley on 04-19-2025 Eosinophils/100 WBC (Bld) 11.4 % High 0-5 [facility] Erythrocyte distribution wid th ratioOrdered By: Aleyda Jolley on 04-19-2025 Erythrocyte distribution width (RBC) [Ratio] 13.2 % 11.6-14.6 [facility] Erythrocyte distribution wid th standard deviationOrdered By: Aleyda Jolley on 04-19-2025 Erythrocyte distribution width (RBC) [Ratio] 45.4 fl High 35.1-43.9 [facility] Glomerular filtration rate ( GFR) estimation/1.73 sq m using serum, plasma, or whole bOrdered By: Aleyda Jolley on 04-19-2025 GFR/1.73 sq M.predicted among non-blacks MDRD (S/P/Bld) [Vol rate/Area] 59 mL/min/{1.73_m2} Low >60 [facility] Comment on above: mL/min/1.73m2 CKD-EP I Creatinine Equation (2020) [facility] deOrdered By: Aleyda Jolley on 04-19-2025 Glucose [Mass/Vol] 142 mg/dL High 74-106 [facility] Comment on above: MANAGEMENT OF PATIEN T CARE PER NURSING PROTOCOL HEMOGLOBIN A1C (POM)on 04-19 Glucose [Mass/Vol] 122.6 mg/dL High 0.0 - 0.0 [facility] Comment on above: Result Comment: BLDo HEMOGLOBIN A1C REFERENCE RANGESBLDo Suggested Diagnosis HbA1c(%) HbA1C (mmol/mol Diabetic >/=6.5 >/=48 Prediabetes 5.7 - 6.4 39 - 47 Normal <5.7 <39 Performed By: #### 2 [id number] #### [facility],[address] [place], [place] [id number] HbA1c (Bld) [Mass fraction] 5.9 % Normal 0.0 - 6.5 [facility] Comment on above: Performed By: #### 2 [id number] #### [facility],[address] [place], [place] [id number] Hematocrit Auto (Bld) [Volum e fraction]Ordered By: Aleyda Jolley on 04-19-2025 Hematocrit (Bld) [Volume fraction] 42.5 % 40-54 [facility] Hemoglobin measurementOrdere d By: Aleyda Jolley on 04-19-2025 Hemoglobin (Bld) [Mass/Vol] 14.3 g/dL 13.0-16.5 [facility] Immature granulocytes/100 WB C Auto (Bld)Ordered By: Aleyda Jolley on 04-19-2025 Immature granulocytes/100 WBC (Bld) 0.400 % 0.0-0.9 [facility] Comment on above: IG% - Immature Granu locytes (promyelocytes, myelocytes and metamyelocytes) > 1% indicates that a LEFT SHIFT is Present. Ketones Test strip Ql (U)Ord ered By: Aleyda Jolley on 04-19-2025 Ketones Ql (U) Negative Negative [facility] LIPID PROFILEon 04-19-2025 Cholesterol [Mass/Vol] 137 mg/dL Normal 0 - 240 [facility] Comment on above: Performed By: #### 2 [id number] #### [facility],[address] [place] [address] 23622 Cholesterol in HDL [Mass/Vol] 41 mg/dL Normal 40 - 60 [facility] Comment on above: Performed By: #### 2 92117 #### [facility],[address] [place] [address] 23698 Cholesterol in LDL [Mass/Vol] 57 mg/dL Normal 0 - 129 [facility] Comment on above: Performed By: #### 2 [id number] #### [facility],[address] [place] [address] 08315 Cholesterol.total/Choles terol in HDL [Mass ratio] 3.3 {ratio} Normal 0.0 - 5.0 [facility] Comment on above: Performed By: #### 2 19656 #### [facility],[address] [place] [address] 42527 Lipid 1996 panel Normal [facility] Comment on above: Result Comment: LIPI D PROFILE Performed By: #### 2 [id number] #### [facility],[address] [place] [address] 85159 Triglyceride [Mass/Vol] 194 mg/dL High 0 - 150 [facility] Comment on above: Performed By: #### 2 94291 #### [facility],[address] [address] Laboratory - Chemistry and C hemistry - challengeOrdered By: Aleyda Jolley on 04-19-2025 AST [Catalytic activity/Vol] 15 U/L <38 [facility] MCV (mean corpuscular volume ) determinationOrdered By: Aleyda Jolley on 04-19-2025 MCV (RBC) [Entitic vol] 94.2 fL High 80-94 [facility] Mean corpuscular hemoglobin (MCH) determinationOrdered By: Aleyda Jolley on 04-19-2025 MCH (RBC) [Entitic mass] 31.7 pg 27.0-32.0 [facility] Mean corpuscular hemoglobin concentration (MCHC) determinationOrdered By: Aleyda Jolley on 04-19-2025 MCHC (RBC) [Mass/Vol] 33.6 g/dL 32-[address] [facility] Mean platelet volume determi nationOrdered By: Aleyda Jolley on 04-19-2025 Platelet mean volume (Bld) [Entitic vol] 9.6 fL 6.2-12.0 [facility] Monocyte percentageOrdered B y: Aleyda Jolley on 04-19-2025 Monocytes/100 WBC (Bld) 6.4 % 0-10 [facility] Neutrophil percentageOrdered By: Aleyda Jolley on 04-19-2025 Neutrophils/100 WBC (Bld) 59.4 % 47-70 [facility] Nitrite Test strip Ql (U)Ord ered By: Aleyda Jolley on 04-19-2025 Nitrite Ql (U) Negative Negative [facility] Nucleated red blood cell per centageOrdered By: Aleyda Jolley on 04-19-2025 Nucleated RBC/100 WBC (Bld) [Ratio] 0 % 0-5 [facility] Platelet countOrdered By: Long Jolley on 04-19-2025 Platelets (Bld) [#/Vol] 243 10*3/uL 150-450 [facility] Potassium measurement (mass/ volume)Ordered By: Aleyda Jolley on 04-19-2025 Potassium (Unsp spec) [Mass/Vol] 3.6 mmol/L 3.3-5.1 [facility] Protein Test strip Ql (U)Ord ered By: Aleyda Jolley on 04-19-2025 Protein Ql (U) 30 mg/dl High Negative [facility] RBC Auto (Bld) [#/Vol]Ordere d By: Aleyda Jolley on 04-19-2025 RBC (Bld) [#/Vol] 4.51 10*6/uL Low 4.6-6.2 [facility] Serum creatinine measurement (mass/volume)Ordered By: Aleyda Jolley on 04-19-2025 Creatinine [Mass/Vol] 1.35 mg/dL High 0.70-1.[address] [facility] Serum globulin measurementOr dered By: Aleyda Jolley on 04-19-2025 Globulin (S) [Mass/Vol] 3.2 g/dL 2.2-4.2 [facility] Serum glucose measurement (m ass/volume)Ordered By: Aleyda Jolley on 04-19-2025 Glucose [Mass/Vol] 88 mg/dL 70-99 [facility] Serum or plasma alanine medina otransferase (ALT) measurementOrdered By: Aleyda Jolley on 04-19-2025 ALT [Catalytic activity/Vol] 8 U/L <47 [facility] Serum or plasma albumin cynthia urement (mass/volume)Ordered By: Aleyda Jolley on 04-19-2025 Albumin [Mass/Vol] 4.4 g/dL 3.4-4.8 [facility] Serum or plasma albumin/glob ulin mass ratioOrdered By: Aleyda Jolley on 04-19-2025 Albumin/Globulin [Mass ratio] 1.4 {ratio} 0.9-2.4 [facility] Serum or plasma alkaline star sphatase measurementOrdered By: Aleyda Jolley 04-19-2025 ALP [Catalytic activity/Vol] 90 U/L 40-129 [facility] Serum or plasma calcium cynthia urement (mass/volume)Ordered By: Aleyda Jolley on 04-19-2025 Calcium [Mass/Vol] 9.8 mg/dL 7.6-11.0 [facility] Serum or plasma urea nitroge n measurement (mass/volume)Ordered By: Aleyda Jolley on 04-19-2025 Urea nitrogen [Mass/Vol] 15 mg/dL 4-19 [facility] Sodium levelOrdered By: Ania Jolley on 04-19-2025 Sodium [Moles/Vol] 138 mmol/L 133-145 [facility] Total proteinOrdered By: Nerissa Jolley on 04-19-2025 Protein [Mass/Vol] 7.6 g/dL 5.9-8.4 [facility] Urine clarityOrdered By: Nerissa Jolley on 04-19-2025 Clarity (U) Clear Clear [facility] Urine color determinationOrd ered By: Aleyda Jolley on 04-19-2025 Color (U) Yellow Yellow [facility] Urine glucose detectionOrder ed By: Aleyda Jolley on 04-19-2025 Glucose Ql (U) 250 mg/dl High Normal [facility] Urine leukocyte esterase det ection by dipstickOrdered By: Aleyda Jolley on 04-19-2025 Leukocyte esterase Test strip Ql (U) Negative Negative [facility] Urine pHOrdered By: Aleyda romero on 04-19-2025 pH (U) 6.0 [pH] 5.0 - 8.0 [facility] Urine specific gravity measu rementOrdered By: Aleyda Jolley on 04-19-2025 Specific gravity (U) [Rel density] 1.010 1.002-1.030 [facility] Urine urobilinogen measureme ntOrdered By: Aleyda Jolley on 04-19-2025 Urobilinogen Ql (U) Normal mg/dl Normal [facility] White blood cell (WBC) count Ordered By: Aleyda Jolley on 04-19-2025 WBC (Bld) [#/Vol] 11.5 10*3/uL High 4.4-11.0 [facility] ED MED ADMINISTRATION DETAIL on 01-26-2025 ED MED ADMINISTRATION DETAIL Trolley Operator Medication Administration Record [address] [address] [id number] 01/19/2025 Patient: JAMEL YEAGER Sex: Male : 1960 Age: 64y MEASUREMENTS: Wt: 68.0 kg, Ht/Edmar: 63.0 in, BMI: 26.57 ALLERGIES: Ultram Medication Ordered Medication Administration Date/Time IV NS 0.9 % 1000 18:58 01/19 IV NS 0.9 % 1000 mL started in bag#1 1000 mL at Started mL at 500 mL/hr 500 mL/hr via Site# 1. Allergies verified and confirmed 5 rights. IV 18:58 01/19/2025 (NOW x1) patency established. IV site checked: no pain, redness, or swelling. Lisa Lee R.N. IV flushed thoroughly pre-medication administration. Information Stopped reviewed with patient. Verbalizes understanding. - 19:02 Lisa 21:42 01/19/2025 Mejia Lee R.N. Scanned 21:42 01/19 Medication Discontinued: IV discontinued. Total amount infused: . mL. - 21:51 Wes Fox R.N. 1 of 1 Normal [facility] ED NURSES CLINICAL NOTEon ED NURSES CLINICAL NOTE Nurse Narrative Nurse Clinical Narrative [address] [place] [address] [id number] 01/19/2025 18:12:00 Patient: JAMEL YEAGER Sex: Male : 1960 Age: 64y Disposition: Left AMA Left Against Medical Advice Disposition Decision Time: 21:40 01/19/2025 Departure Time: 21:45 01/19/2025 TRIAGE Arrived by private vehicle. Historian: (patient). Unaccompanied. Primary physician (Krystal Valentin). Triage time: 18:15 01/19/2025. Acuity: LEVEL 3. Chief Complaint: DIZZINESS and WEAKNESS. This started today. The patient has had weakness. ( hypotension). SEPSIS SCREEN: NEGATIVE. SIRS criteria negative. No possible sources of infection. -- 18:19 01/19/25 EDT Néstor Melchor R.N. 18:18 01/19/25. BP: 106/58 MAP: 74. HR: 90. RR: 19. O2 saturation: 95% Temperature: 98.1 F. Pain level now 05/27. -- 18:01/19/25 BENJAMIN Melchor R.N. Measurements: 18:01/19/25 Wt: 68.0 kg, Ht/Edmar: 63.0 in, BMI: 26.57 -- 18:01/19/25 BENJAMIN Melchor R.N. Medications: metoprolol succinate ER 50 mg tablet,extended release 24 hr -- 18:01/19/25 BENJAMIN Melchor R.N. hydroxyzine HCl 50 mg tablet -- 18:01/19/25 ZHAOT Néstor Melchor R.N. clopidogrel 75 mg tablet -- 18:01/19/25 ZHAOT Néstor Melchor R.N. 1 of 5 Nurse Narrative sildenafil 25 mg tablet: TAKE 1 TO 2 TABS DAILY NEEDED FOR SEXUAL ACTIVITYADMINISTER 30 MINUTES TO 4 HOURS BEFORE ACTIVITY -- 18:01/19/25 BENJAMIN Melchor R.N. albuterol sulfate HFA 90 mcg/actuation aerosol inhaler -- 18:01/19/25 BENJAMIN Melchor R.N. gabapentin 600 mg tablet -- 18:01/19/25 BENJAMIN Melchor R.N. ropinirole 0.5 mg tablet -- 18:01/19/25 BENJAMIN Melchor R.N. fluticasone propionate 50 mcg/actuation nasal spray,suspension -- 18:01/19/25 BENJAMIN Melchor R.N. sertraline 50 mg tablet -- 18:01/19/25 BENJAMIN Melchor R.N. losartan 100 mg tablet -- 18:01/19/25 BENJAMIN Melchor R.N. desloratadine 5 mg disintegrating tablet -- 18:01/19/25 BENJAMIN Melchor R.N. pantoprazole 40 mg tablet,delayed release -- :01/19/25 ZHAOT Néstor Melchor R.N. acetaminophen 500 mg tablet: TAKE 1 TABLET BY MOUTH EVERY 6 HOURS NEEDED FOR PAIN -- 18:01/19/25 BENJAMIN Melcohr R.N. rosuvastatin 20 mg tablet -- 18:01/19/25 BENJAMIN Melchor R.N. furosemide 40 mg tablet -- 18:23 01/19/25 ZHAOT Néstor Melchor R.N. Januvia 100 mg tablet -- 18:23 01/19/25 ZHAOT Néstor Melchor R.N. FreeStyle Mikael 2 Sensor kit -- 18:23 01/19/25 ZHAOT Néstor Melchor R.N. Humalog KwikPen (U-100) Insulin 100 unit/mL subcutaneous -- 18:23 01/19/25 ZHAOT Néstor Melchor R.N. Jardiance 10 mg tablet -- 18:23 01/19/25 ZHAOT Néstor Melchor R.N. FreeStyle Mikael 2 Plus Sensor device -- 18:23 01/19/25 ZHAOT Néstor Melchor R.N. 18:15 01/19/25. Preferred Pharmacy: ([facility]). -- 18:19 01/19/25 BENJAMIN Melchor R.N. Allergies: Ultram -- 18:16 01/19/25 BENJAMIN Melchor R.N. Problems: Coronary Artery Disease -- 18:16 01/19/25 BENJAMIN Melchor R.N. Hypertension -- 18:16 01/19/25 BENJAMIN Melchor R.N. Ischemic stroke -- 18:16 01/19/25 BENJAMIN Melchor R.N. Asthma -- 18:16 01/19/25 BENJAMIN Melchor R.N. Arthritis -- 18:16 01/19/25 BENJAMIN Melchor R.N. Diabetes Mellitus -- 18:16 01/19/25 BENJAMIN Melchor R.N. Surgeries: Bilateral eyes -- 18:16 01/19/25 BENJAMIN Melchor R.N. 2 of 5 Nurse Narrative Coronary artery bypass grafts x 4 -- 18:16 01/19/25 BENJAMIN Melchor R.N. Carotid endarterectomy -- 18:16 01/19/25 BENJAMIN Melchor R.N. History 18:15 01/19/25. SOCIAL HX: Light tobacco smoker- less than 1/2 a pack per day. No alcohol use or drug use. The patient has not traveled outside the [place] Infectious disease exposure: No infectious disease exposure. ABUSE ASSESSMENT: The patient answered yes to the question(s) Do you feel safe in your home? and no to the question(s) Are you afraid to go home?. SELF HARM ASSESSMENT: Self harm assessment was performed. The patient answered no to the question(s) Have you recently felt down, depressed, or hopeless? and Do you have thoughts of harming or killing yourself?. FALL RISK ASSESSMENT: Fall risk assessment completed. Risk factors identified include dizziness and weakness. Fall interventions initiated. Patient placed on stretcher. Side rails up x2. Bed in low position. Patient visible from nurses' station and identified as a fall risk. Patient in yellow slippers. -- 18:19 01/19/25 EDT Néstor Melchor R.N. Interventions 18:15 01/19/25. Advanced care plan discussed with patient. Patient does not have advanced directive. (full code). -- 18:19 01/19/25 EDT Néstor Melchor R.N. PHYSICAL ASSESSMENT 18:54 01/19/25. GENERAL / NEURO / PSYCH: Oriented X 4. Appears in no acute distress. Alert. Speech within normal limits. ( Pt arrives ambulatory to ER#6 c/o back pain that radiates into the groin with burning of urination, and a foul odor of urine. Pt also o (more content not included)... Normal [facility] ED ORDER SHEET (CPOE ONLY)on 01-26-2025 ED ORDER SHEET (CPOE ONLY) Order Sheet Order Sheet [address] [place] [address] [id number] 01/19/2025 Patient: JAMEL YEAGER Sex: Male : 1960 Age: 64y MEASUREMENTS: Wt: 68.0 kg, Ht/Edmar: 63.0 in, BMI: 26.57 ALLERGIES: Ultram MEDICATION/IV/DRIP/FL UID ORDERS Order Description Priority Entered Acknowledged Completed IV NS 0.9 %1000 mL at 500 18:39 01/19/2025 19:02 mL/hr (NOW x1) Saulo Neff, 01/19/2025 Camilla Lee R.N. LAB ORDERS Order Description Priority Entered Acknowledged Collected Completed CBC w Diff Stat Stat 18:39 01/19/2025 19:03 01/19/2025 19:05 01/19/2025 Lisa Barrientos Shauna Ewing, D.O. R.N. R.N. CMP Stat Stat 18:39 01/19/2025 19:03 01/19/2025 19:05 01/19/2025 Lisa Barrientos Shauna Ewing, D.O. R.N. R.N. Lipase Stat Stat 18:39 01/19/2025 19:03 01/19/2025 19:05 01/19/2025 Lisa Barrientos Shauna Ewing, 1 of 3 Order Sheet Camilla Ba R.N. EKG - ED Stat Stat 18:39 01/19/2025 19:03 01/19/2025 19:04 01/19/2025 Lisa Barrientos Shauna Ewing, D.O. R.N. R.NSheila Urinalysis Stat Stat 18:39 01/19/2025 19:03 01/19/2025 19:05 01/19/2025 Lisa Barrientos Shauna Ewing, D.O. R.N. R.NSheila DIAGNOSTIC STUDY ORDERS Order Description Priority Entered Acknowledged Completed CT ABD/PEL w Cont Stat Stat 18:39 01/19/2025 19:03 19:05 Saulo Neff, 01/19/2025 01/19/2025 Lisa Benton R.N. R.NSheila Reason for Study: Abdominal Pain CT ABD/PEL wo Cont Stat Stat 19:50 01/19/2025 20:34 20:34 Rohan Candelaria D.O. 01/19/2025 01/19/2025 Nadya Baugh R.N. R.NSheila Reason for Study: Abdominal Pain STAFF ORDERS Order Description Priority Entered Acknowledged Collected Completed IV Saline Lock 18:39 01/19/2025 19:03 01/19/2025 19:05 01/19/2025 Lisa Barrientos Shauna Ewing, D.O. R.N. R.NSheila Treasury Representative 18:39 01/19/2025 19:03 01/19/2025 19:05 01/19/2025 Lisa Barrientos Shauna Ewing, D.O. R.NSheila RSheilaN. 2 of 3 Order Sheet Pulse Oximeter 18:39 01/19/2025 19:03 01/19/2025 19:05 01/19/2025 Lisa Barrientos Shauna Ewing, D.O. R.NSheila R.N. Oxygen titrate to 92% 18:39 01/19/2025 19:03 01/19/2025 19:05 01/19/2025 Lisa Barrientos Shauna Ewing, D.O. R.NSheila RSheilaNSheila [Electronically signed by Rohan Candelaria D.O. (01/19/2025 19:50 EDT)] [Electronically signed by Rohan Candelaria D.O. (01/19/2025 23:41 EDT)] [Electronically signed by Saulo Neff D.O. (01/20/2025 12:22 EDT)] 3 of 3 Normal [facility] ED PHYSICIAN CLINICAL REPORT on 01-26-2025 ED PHYSICIAN CLINICAL REPORT Narrative Physician Clinical Narrative [address] [address] [id number] 01/19/2025 18:12:00 Patient: JAMEL YEAGER Sex: Male : 1960 Age: 64y Disposition: Left AMA Left Against Medical Advice Disposition Decision Time: 21:40 01/19/2025 Departure Time: 21:45 01/19/2025 Measurements Wt: 68.0 kg, Ht/Edmar: 63.0 in, BMI: 26.57 Initial Vital Sign Measured Time BP MAP HR RR O2Sat ETCO2 Temp Pain GCS RTS 18:18 01/19/2025 106/58 74 90 19 95% 98.1 F 10 PAST HISTORY Arthritis Asthma Coronary Artery Disease Diabetes Mellitus Hypertension Ischemic stroke Surgeries: Bilateral eyes Carotid endarterectomy Coronary artery bypass grafts x 4 Medications: 1 of 26 Narrative acetaminophen 500 mg tablet: TAKE 1 TABLET BY MOUTH EVERY 6 HOURS NEEDED FOR PAIN albuterol sulfate HFA 90 mcg/actuation aerosol inhaler clopidogrel 75 mg tablet desloratadine 5 mg disintegrating tablet fluticasone propionate 50 mcg/actuation nasal spray,suspension FreeStyle Mikael 2 Plus Sensor device FreeStyle Mikael 2 Sensor kit furosemide 40 mg tablet gabapentin 600 mg tablet Humalog KwikPen (U-100) Insulin 100 unit/mL subcutaneous hydroxyzine HCl 50 mg tablet Januvia 100 mg tablet Jardiance 10 mg tablet losartan 100 mg tablet metoprolol succinate ER 50 mg tablet,extended release 24 hr pantoprazole 40 mg tablet,delayed release ropinirole 0.5 mg tablet rosuvastatin 20 mg tablet sertraline 50 mg tablet sildenafil 25 mg tablet: TAKE 1 TO 2 TABS DAILY NEEDED FOR SEXUAL ACTIVITYADMINISTER 30 MINUTES TO 4 HOURS BEFORE ACTIVITY Allergies: Ultram LABS, X-RAYS, AND EKG Laboratory Tests: CBC + DIFF Final STEVEN: 01/19/2025 18:58:00 EDT MsgRcvd: 01/19/2025 19:11 EDT Lab Test Result Reference Status Received Comments 01/19/2025 19:11 CBC-COMPLETE CBC + DIFF Final EDT BLOOD COUNT 2 of 26 Narrative Lab Test Result Reference Status Received Comments 01/19/2025 19:11 WBC 10.4 x 10/UL 4.5 - 10.8 Final EDT 4.44 x 10/UL 01/19/2025 19:11 RBC 4.50 - 6.00 Final Below low normal EDT 01/19/2025 19:11 HEMOGLOBIN 14.1 g/dl 13.0 - 17.5 Final EDT 01/19/2025 19:11 HEMATOCRIT 41.2 % 40.0 - 52.0 Final EDT 01/19/2025 19:11 MCV 93 fl 81 - 98 Final EDT 01/19/2025 19:11 MCH 32 pg 27 - 33 Final EDT 01/19/2025 19:11 MCHC 34 X10 3 32 - 36 Final EDT 01/19/2025 19:11 RDW/CV 13.0 % 12.0 - 15.6 Final EDT 01/19/2025 19:11 PLATELET 219 x10/UL 150 - 450 Final EDT 01/19/2025 19:11 AUTOMATED MPV 7.6 fl 6.4 - 10.5 Final EDT DIFFERENTIAL 41.1 % 01/19/2025 19:11 NEUT % 46.0 - 76.0 Final Below low normal EDT 01/19/2025 19:11 LYMPH % 38.3 % 20.0 - 45.0 Final EDT 01/19/2025 19:11 MONOS % 6.8 % 0.0 - 10.0 Final EDT 3 of 26 Narrative Lab Test Result Reference Status Received Comments 13.4 % 01/19/2025 19:11 EO % 0.0 - 7.0 Final Above high normal EDT 01/19/2025 19:11 BASO % 0.4 % 0.0 - 2.0 Final EDT 3.98 x10/UL 01/19/2025 19:11 Lymph # 0.80 - 2.80 Final Above high normal EDT 01/19/2025 19:11 Neut # 4.27 x10/UL 1.50 - 7.10 Final EDT 01/19/2025 19:11 Cabell # 0.71 x10/UL 0.20 - 1.00 Final EDT 1.39 x10/UL 01/19/2025 19:11 EO # 0.00 - 0.50 Final Above high normal EDT 01/19/2025 19:11 Baso # 0.04 x10/UL 0.00 - 0.10 Final EDT 01/19/2025 19:11 MANUAL DIFF N/A New Order EDT 01/19/2025 19:11 MORPHOLOGY N/A New Order EDT CMP with eGFR Final STEVEN: 01/19/2025 18:58:00 EDT MsgRcvd: 01/19/2025 19:34 EDT Lab Test Result Reference Status Received Comments COMPREHENSIVE 01/19/2025 CMP with eGFR Final METABOLIC 19:34 EDT PANEL 01/19/2025 SODIUM 140 mmol/l 136 - 145 Final 19:34 EDT 4 of 26 Narrative Lab Test Result Reference Status Received Comments 01/19/2025 POTASSIUM 4.0 mmol/L 3.5 - 5.1 Final 19:34 EDT 01/19/2025 CHLORIDE 102 mmol/L 98 - 107 Final 19:34 EDT 01/19/2025 CO2 27.5 mmol/L 21.0 - 32.0 Final 19:34 EDT 157 mg/dl 01/19/2025 GLUCOSE Above high 74 - 106 Final 19:34 EDT normal 36 mg/dl 01/19/2025 BUN Above high 7 - 18 Final 19:34 EDT normal 2.58 mg/dl 01/19/2025 CREATININE Above high 0.70 - 1.30 Final 19:34 EDT normal 10 U/L 01/19/2025 AST/SGOT 15 - 37 Final Below low normal 19:34 EDT 01/19/2025 ALK PHOS 89 U/L 46 - 116 Final 19:34 EDT 01/19/2025 CALCIUM 9.2 mg/dl 8.5 - 10.1 Final 19:34 EDT TOTAL 01/19/2025 7.7 g/dl 6.4 - 8.2 Final PROTEIN 19:34 EDT 01/19/2025 ALBUMIN 3.8 g/dL 3.4 - 5.0 Final 19:34 EDT 3.9 G/DL 01/19/2025 GLOBULIN Above high 1.5 - 3.8 Final 19:34 EDT normal 5 of 26 Narrative Lab Test Result Reference Status Received Comments 01/19/2025 A/G RATIO 1.0 0.9 - 1.6 Final 19:34 EDT (more content not included)... Normal [facility] ED [facility] 01-26-[address] [place] [address] [phone] 01/19/2025 Patient: JAMEL YEAGER Sex: Male : 1960 Age: 64y Item Facility Professional Category Description Code Code Quantity Fee Total Drugs Normal Saline 886350 1 $0.00 $0.00 1000cc (934336) Nurse/E/M EMERGENCY 020714 1 $0.00 $0.00 DEPARTMENT VISIT HIGH/URGENT SEVERITY (88244-21) Nurse/IV/IM/Infusions Hydration 801967 2 $0.00 $0.00 additional hour (24967) Nurse/IV/IM/Infusions Hydration initial [id number] 1 $0.00 $0.00 (45802) Grand Total $0.00 Providers Saulo Neff D.O. Rohan Candelaria D.O. 1 of 2 [facility] Chief Complaint ABDOMINAL PAIN. Principal Diagnosis Mild volume depletion with dehydration. ICD-10 Codes K52.9: Noninfective gastroenteritis and colitis, unspecified E86.9: Volume depletion, unspecified E86.0: Dehydration 2 of 2 Normal [facility] ED VISIT SUMMARYon ED VISIT SUMMARY Visit Overview Visit Overview [address] [place] [address] [id number] 01/19/2025 Patient: JAMEL YEAGER Sex: Male : 1960 Age: 64y 01/26/2025 10:50 AM EDT ED Arrival:18:12 01/19/2025 EDT Status: Recent Travel:no Language:eng Adv Directive:No Isolation Status: Ethnicity:N Fall Risk:risk Infectious Disease Exposure:no Measurements:5'3 / 160.0 Self-Harm Status:risk Sepsis Screen:negative cm 150.0 lb / 68.0 kg Chief Complaint:DIZZINESS, WEAKNESS, (Krystal Shashi), and (hypotension) ALLERGIES [facility] HOME MEDICATIONS acetaminophen 500 mg tablet: TAKE 1 TABLET BY MOUTH EVERY 6 HOURS NEEDED FOR PAIN albuterol sulfate HFA 90 mcg/actuation aerosol inhaler clopidogrel 75 mg tablet desloratadine 5 mg disintegrating tablet fluticasone propionate 50 mcg/actuation nasal spray,suspension 1 of 4 Visit Overview FreeStyle Mikael 2 Plus Sensor device FreeStyle Mikael 2 Sensor kit furosemide 40 mg tablet gabapentin 600 mg tablet Humalog KwikPen (U-100) Insulin 100 unit/mL subcutaneous hydroxyzine HCl 50 mg tablet Januvia 100 mg tablet Jardiance 10 mg tablet losartan 100 mg tablet metoprolol succinate ER 50 mg tablet,extended release 24 hr pantoprazole 40 mg tablet,delayed release ropinirole 0.5 mg tablet rosuvastatin 20 mg tablet sertraline 50 mg tablet sildenafil 25 mg tablet: TAKE 1 TO 2 TABS DAILY NEEDED FOR SEXUAL ACTIVITYADMINISTER 30 MINUTES TO 4 HOURS BEFORE ACTIVITY PAST MEDICAL HISTORY / PROBLEMS Arthritis Asthma Coronary Artery Disease Diabetes Mellitus Hypertension Ischemic stroke See nurses notes PAST SURGICAL HISTORY Bilateral eyes Carotid endarterectomy Coronary artery bypass grafts x 4 SOCIAL HISTORY Smoking status: Yes Alcohol use: No Drug use: No 2 of 4 Visit Overview ED COURSE MEDICATIONS GIVEN IN EMERGENCY DEPARTMENT 18:58 01/19/25 IV NS 0.9 % 1000 mL 500 mL/hr IV SITE INFORMATION INTAKE OUTPUT REASSESMENT (most recent) 18:54 01/19/25. GENERAL / NEURO / PSYCH: Oriented X 4. Appears in no acute distress. Alert. Speech within normal limits. ( Pt arrives ambulatory to ER#6 c/o back pain that radiates into the groin with burning of urination, and a foul odor of urine. Pt also offers he has been having low blood pressure.). RESPIRATORY: Breath sounds within normal limits. Respirations not labored. CVS: Normal sinus rhythm noted. Capillary refill less than 2 seconds. GI / : Abdomen soft and nontender. SKIN: Skin is warm and dry. VITAL SIGNS First Vitals Last Vitals Temp 18:18 01/19/25 98.1 F Temp 21:45 01/19/25 BP 18:18 01/19/25 106/58 BP 21:45 01/19/25 HR 18:18 01/19/25 90 HR 21:45 01/19/25 RR 18:18 01/19/25 19 RR 21:45 01/19/25 16 O2 Sat 18:18 01/19/25 95% O2 Sat 21:45 01/19/25 Pain 18:18 01/19/25 10 Pain 21:45 01/19/25 ETCO2 18:18 01/19/25 ETCO2 21:45 01/19/25 GCS 18:18 01/19/25 GCS 21:45 01/19/25 RTS 18:18 01/19/25 RTS 21:45 01/19/25 PROCEDURES NURSING INTERVENTIONS LABS / STUDIES LABS / STUDIES ORDERED CBC w Diff 3 of [address] ABD/PEL w Cont CT ABD/PEL wo Cont EKG - ED Lipase Urinalysis CLINICAL IMPRESSION MILD VOLUME DEPLETION WITH DEHYDRATION 4 of 4 Normal [facility] ED VITALS FLOW SHEETon 01-26 ED VITALS FLOW SHEET Vitals Vital Sign Flow Sheet [facility] [address] [place] [address] [phone] 01/19/2025 Patient: JAMEL YEAGER Sex: Male : 1960 Age: 64y Measurements Wt: 68.0 kg, Ht/Edmar: 63.0 in, BMI: 26.57 Measured Time BP MAP HR RR O2Sat ETCO2 Temp Pain GCS RTS 21:45 01/19/2025 16 21:38 01/19/2025 89 93% 21:33 01/19/2025 89 92% 21:30 01/19/2025 126/59 81 87 21:28 01/19/2025 92 91% 21:23 01/19/2025 91 90% 21:14 01/19/2025 127/68 87 89 21:13 01/19/2025 90 89% 21:08 01/19/2025 91 90% 21:03 01/19/2025 90 90% 20:59 01/19/2025 111/60 67 90 20:58 01/19/2025 92 88% 20:53 01/19/2025 91 88% 20:48 01/19/2025 92 90% 20:44 01/19/2025 110/56 75 91 1 of 3 Vitals Measured Time BP MAP HR RR O2Sat ETCO2 Temp Pain GCS RTS 20:43 01/19/2025 92 90% 20:38 01/19/2025 92 92% 20:33 01/19/2025 93 89% 20:29 01/19/2025 112/57 75 87 20:28 01/19/2025 93 89% 20:23 01/19/2025 94 88% 20:18 01/19/2025 93 91% 20:14 01/19/2025 109/68 81 91 20:13 01/19/2025 92 90% 20:08 01/19/2025 95 90% 20:03 01/19/2025 94 90% 20:00 01/19/2025 109/53 73 91 19:58 01/19/2025 94 90% 19:53 01/19/2025 91 92% 19:40 01/19/2025 91 94% 19:34 01/19/2025 92 91% 19:29 01/19/2025 92 92% 19:29 01/19/2025 107/51 66 91 19:24 01/19/2025 93 92% 19:19 01/19/2025 92 90% 19:14 01/19/2025 96/54 74 91 19:14 01/19/2025 92 90% 19:09 01/19/2025 96 92% 19:04 01/19/2025 96 91% 18:59 01/19/2025 124/53 76 95 2 of 3 Vitals Measured Time BP MAP HR RR O2Sat ETCO2 Temp Pain GCS RTS 18:59 01/19/2025 95 91% 18:18 01/19/2025 106/58 74 90 19 95% 98.1 F 10 3 of 3 Normal [facility] CBC + DIFFon 01-19-2025 Baso # 0.04 x10EE3/UL Normal 0.00 - 0.10 [facility] Comment on above: Performed By: #### 2 [id number] #### [facility],[address] [place] [address] 28123 Basophils/100 WBC (Bld) 0.4 % Normal 0.0 - 2.0 [facility] Comment on above: Performed By: #### 2 88602 #### [facility],[address] [place] [address] 15264 CBC + DIFF Normal [facility] Comment on above: Result Comment: CBC- COMPLETE BLOOD COUNT Performed By: #### 2 03103 #### [facility],[address] [place] [address] 98271 EO # 1.39 x10EE3/UL High 0.00 - 0.50 [facility] Comment on above: Performed By: #### 2 76259 #### [facility],[address] [place] [address] 38679 Eosinophils/100 WBC (Bld) 13.4 % High 0.0 - 7.0 [facility] Comment on above: Performed By: #### 2 14717 #### [facility],[address] [place] [address] 89219 Erythrocyte distribution width (RBC) [Ratio] 13.0 % Normal 12.0 - 15.6 [facility] Comment on above: Performed By: #### 2 24672 #### [facility],[address] [place] [address] 86591 Hematocrit (Bld) [Volume fraction] 41.2 % Normal 40.0 - 52.0 [facility] Comment on above: Performed By: #### 2 49578 #### [facility],[address] [place] [address] 43729 Hemoglobin (Bld) [Mass/Vol] 14.1 g/dL Normal 13.0 - 17.5 [facility] Comment on above: Performed By: #### 2 34868 #### [facility],[address] [place] [address] Lymph # 3.98 x10EE3/UL High 0.80 - 2.80 [facility] Comment on above: Performed By: #### 2 70469 #### [facility],[address] [place], [place] [id number] Lymphocytes/100 WBC (Bld) 38.3 % Normal 20.0 - 45.0 [facility] Comment on above: Performed By: #### 2 62843 #### [facility],[address] [place] [address] 85197 MANUAL DIFF N/A Normal [facility] Comment on above: Performed By: #### 2 57399 #### [facility],[address] [place] [address] 21524 MCH (RBC) [Entitic mass] 32 pg Normal 27 - 33 [facility] Comment on above: Performed By: #### 2 39313 #### [facility],[address] [place] [address] 81602 MCHC 34 X10 3 Normal 32 - 36 [facility] Comment on above: Performed By: #### 2 35963 #### [facility],[address] [place] [address] 74810 MCV (RBC) [Entitic vol] 93 fL Normal 81 - 98 [facility] Comment on above: Performed By: #### 2 14364 #### [facility],[address] [place] [address] 22896 Cabell # 0.71 x10EE3/UL Normal 0.20 - 1.00 [facility] Comment on above: Performed By: #### 2 44878 #### [facility],[address] [place] [address] 94079 MONOS % 6.8 % Normal 0.0 - 10.0 [facility] Comment on above: Performed By: #### 2 15477 #### [facility],[address] [place] [address] 78609 Morphology Boubacar (Bld) [Interp] N/A Normal [facility] Comment on above: Performed By: #### 2 01680 #### [facility],[address] [place] [address] 64429 Neut # 4.27 x10EE3/UL Normal 1.50 - 7.10 [facility] Comment on above: Performed By: #### 2 00966 #### [facility],[address] [place] [address] 36994 Neutrophils/100 WBC (Bld) 41.1 % Low 46.0 - 76.0 [facility] Comment on above: Performed By: #### 2 39551 #### [facility],[address] [place] [address] 97425 PLATELET 219 x10EE3/UL Normal 150 - 450 [facility] Comment on above: Performed By: #### 2 91846 #### [facility],[address] [place] [address] 64063 Platelet mean volume (Bld) [Entitic vol] 7.6 fL Normal 6.4 - 10.5 [facility] Comment on above: Result Comment: AUTO MATED DIFFERENTIAL Performed By: #### 2 23605 #### [facility],[address] [place] [address] 17176 RBC 4.44 x 10EE6/UL Low 4.50 - 6.00 [facility] Comment on above: Performed By: #### 2 10356 #### [facility],[address] [place] [address] 64969 WBC 10.4 x 10EE3/UL Normal 4.5 - 10.8 [facility] Comment on above: Performed By: #### 2 45333 #### [facility],[address] [place] [address] 45754 CMP with eGFRon 01-19-2025 AGE 64 years Normal [facility] Comment on above: Performed By: #### 2 80707 #### [facility],[address] [place] [address] 57290 Albumin [Mass/Vol] 3.8 g/dL Normal 3.4 - 5.0 [facility] Comment on above: Performed By: #### 2 52933 #### [facility],[address] [place] [address] 50013 Albumin/Globulin [Mass ratio] 1.0 {ratio} Normal 0.9 - 1.6 [facility] Comment on above: Performed By: #### 2 02617 #### [facility],[address] [place] [address] 92754 ALK PHOS 89 U/L Normal 46 - 116 [facility] Comment on above: Performed By: #### 2 99147 #### [facility],[address] [place] [address] 26997 ALT [Catalytic activity/Vol] 12 U/L Low 16 - 63 [facility] Comment on above: Performed By: #### 2 67551 #### [facility],[address] [place] [address] 07233 Anion gap [Moles/Vol] 15 mmol/L Normal 10 - 20 [facility] Comment on above: Performed By: #### 2 91671 #### [facility],[address] [place] [address] 93456 AST [Catalytic activity/Vol] 10 U/L Low 15 - 37 [facility] Comment on above: Performed By: #### 2 43272 #### [facility],[address] [place] [address] 58033 B/C RATIO 14 ratio Normal 0 - 30 [facility] Comment on above: Performed By: #### 2 96304 #### [facility],[address] [place] [address] 43016 Bilirubin [Mass/Vol] 0.4 mg/dL Normal 0.2 - 1.0 [facility] Comment on above: Performed By: #### 2 22720 #### [facility],[address] [place] [address] 40130 Calcium [Mass/Vol] 9.2 mg/dL Normal 8.5 - 10.1 [facility] Comment on above: Performed By: #### 2 60106 #### [facility],[address] [place] [address] 25084 Chloride [Moles/Vol] 102 mmol/L Normal 98 - 107 [facility] Comment on above: Performed By: #### 2 04423 #### [facility],[address] [place] [address] 25053 CMP with eGFR Normal [facility] Comment on above: Result Comment: COMP REHENSIVE METABOLIC PANEL Performed By: #### 2 31169 #### [facility],[address] [place] [address] 40283 CO2 [Moles/Vol] 27.5 mmol/L Normal 21.0 - 32.0 [facility] Comment on above: Performed By: #### 2 46363 #### [facility],[address] [place] [address] 55588 Creatinine [Mass/Vol] 2.58 mg/dL High 0.70 - 1.30 [facility] Comment on above: Performed By: #### 2 80198 #### [facility],[address] [place] [address] 55606 eGFR 25 ML/MINUTE Low 60 - 999 [facility] Comment on above: Performed By: #### 2 80589 #### [facility],[address] [place] [address] 69046 eGFR(AA) 31 ML/MINUTE Low 60 - 999 [facility] Comment on above: Result Comment: ACCO RDING TO THE NATIONAL KIDNEY DISEASE EDUCATION PROGRAM(NKDE), A NORMAL eGFR IS A VALUE GREATER THAN OR EQUAL TO 60 ML/MIN/1.73 SQ METERS. CHRONIC KIDNEY DISEASE: <60mL/MIN/1.73 SQ METERS KIDNEY FAILURE: <15mL/MIN/1.73 SQ METERS THIS TEST SHOULD ONLY BE USED FOR PATIENTS 18 YEARS OF AGE AND OLDER. Performed By: #### 2 79579 #### [facility],[address] [place] [address] 66265 Globulin (S) [Mass/Vol] 3.9 g/dL High 1.5 - 3.8 [facility] Comment on above: Performed By: #### 2 26258 #### [facility],[address] [place] [address] 04484 Glucose [Mass/Vol] 157 mg/dL High 74 - 106 [facility] Comment on above: Performed By: #### 2 08614 #### [facility],[address] [place] [address] 37307 Potassium [Moles/Vol] 4.0 mmol/L Normal 3.5 - 5.1 [facility] Comment on above: Performed By: #### 2 04501 #### [facility],[address] [place] [address] 43779 Protein [Mass/Vol] 7.7 g/dL Normal 6.4 - 8.2 [facility] Comment on above: Performed By: #### 2 45173 #### [facility],[address] [place] [address] 82872 Sodium [Moles/Vol] 140 mmol/L Normal 136 - 145 [facility] Comment on above: Performed By: #### 2 81142 #### [facility],[address] [place] [address] 15088 Urea nitrogen [Mass/Vol] 36 mg/dL High 7 - 18 [facility] Comment on above: Performed By: #### 2 80948 #### [facility],[address] [place] [address] ABDOMEN/PELVIS Won 2024 CT ABDOMEN/PELVIS W [address] [address] Patient: JAMEL YEAGER Phone#: : 1960 Age: 64 Gender: M Pt. Type: ER Account: [id number] Location: [facility] Ordering: DR. ROHAN CANDELARIA Exam Date: 01/19/2025/19:50 Family Phys: NADYA VALENTIN Charge Code: [id number] Physician: SAULO NEFF Meade Order #: [id number] Dose#: 5.70 PROCEDURE: CT ABDOMEN/PELVIS WITHOUT CONTRAST COMPARISON: [facility], CT, ABDOMEN/PELVIS W CON, 02/08/2022, 22:26. INDICATIONS: ABD. PAIN. TECHNIQUE: CT images were created without intravenous contrast. All CT scans at this facility use dose modulation, iterative reconstruction, and/or weight based dosing when appropriate to reduce radiation dose to as low as reasonably achievable. IV CONTRAST: No IV contrast used,ml TOTAL DOSE: 5.7 CTDIvol(mGy) FINDINGS: LIVER: Normal. No enlargement, atrophy, abnormal density, or significant focal lesion. BILIARY: Normal. No visible dilatation or calcification. PANCREAS: Normal. No lesion, fluid collection, ductal dilatation, or atrophy. SPLEEN: Normal. No enlargement or focal lesion. KIDNEYS: Normal. No mass, obstruction, or calcification. ADRENALS: Normal. No mass or enlargement. AORTA/VASCULAR: Calcification of the aorta iliac and femoral arteries is present. Exam is limited without contrast however there does appear to be significant stenosis at the iliac.. No aneurysm. RETROPERITONEUM: Normal. No mass or adenopathy. BOWEL/MESENTERY: There is moderate gastric distention. No visible mass, obstruction, or bowel wall thickening. ABDOMINAL WALL: Small inguinal hernias with fat are present. URINARY BLADDER: Normal. No visible focal wall thickening, lesion, or calculus. PELVIC NODES: Normal. No adenopathy. PELVIC ORGANS: Normal. No visible mass. Pelvic organs appropriate for patient age. BONES: Degenerative changes of the spine are present.. No bony lesion or fracture. LUNG BASES: Normal. No visible pulmonary or pleural disease. OTHER: Negative. CONCLUSION: Continued Report - Page 2 of 2 Patient: JAMEL YEAGER Phone#: : 1960 Age: 64 Gender: M Pt. Type: ER Account: [id number] Location: 052 Ordering: DR. ROHAN CANDELARIA Exam Date: 01/19/2025/19:50 Family Phys: NADYA VALENTIN Charge Code: [id number] Physician: SAULO NEFF Meade Order #: [id number] Dose#: 5.70 1. Moderate gastric distention. 2. Aortic, iliac and femoral artery calcification. Dictated by: Yoselin Rock MD on 01/20/2025 at 9:19 Approved by: Yoselin Rock MD on 01/20/2025 at 9:23 Normal [facility] CT ABDOMEN/PELVIS [facility] 01-19 CT ABDOMEN/PELVIS [place] [address] Patient: JAMEL YEAGER Phone#: : 1960 Age: 64 Gender: M Pt. Type: ER Account: [id number] Location: 052 Ordering: DR. ROHAN CANDELARIA Exam Date: 01/19/2025/19:50 Family Phys: NADYA VALENTIN Charge Code: [id number] Physician: SAULO NEFF Meade Order #: [id number] Dose#: 5.70 PROCEDURE: CT ABDOMEN/PELVIS WITHOUT CONTRAST COMPARISON: [facility], CT, ABDOMEN/PELVIS W CON, 02/08/2022, 22:26. INDICATIONS: ABD. PAIN. TECHNIQUE: CT images were created without intravenous contrast. All CT scans at this facility use dose modulation, iterative reconstruction, and/or weight based dosing when appropriate to reduce radiation dose to as low as reasonably achievable. IV CONTRAST: No IV contrast used,ml TOTAL DOSE: 5.7 CTDIvol(mGy) FINDINGS: LIVER: Normal. No enlargement, atrophy, abnormal density, or significant focal lesion. BILIARY: Normal. No visible dilatation or calcification. PANCREAS: Normal. No lesion, fluid collection, ductal dilatation, or atrophy. SPLEEN: Normal. No enlargement or focal lesion. KIDNEYS: Normal. No mass, obstruction, or calcification. ADRENALS: Normal. No mass or enlargement. AORTA/VASCULAR: Calcification of the aorta iliac and femoral arteries is present. Exam is limited without contrast however there does appear to be significant stenosis at the iliac.. No aneurysm. RETROPERITONEUM: Normal. No mass or adenopathy. BOWEL/MESENTERY: There is moderate gastric distention. No visible mass, obstruction, or bowel wall thickening. ABDOMINAL WALL: Small inguinal hernias with fat are present. URINARY BLADDER: Normal. No visible focal wall thickening, lesion, or calculus. PELVIC NODES: Normal. No adenopathy. PELVIC ORGANS: Normal. No visible mass. Pelvic organs appropriate for patient age. BONES: Degenerative changes of the spine are present.. No bony lesion or fracture. LUNG BASES: Normal. No visible pulmonary or pleural disease. OTHER: Negative. CONCLUSION: Continued Report - Page 2 of 2 Patient: JAMEL YEAGER Phone#: : 1960 Age: 64 Gender: M Pt. Type: ER Account: [id number] Location: 2 Ordering: DR. ROHAN CANDELARIA Exam Date: 01/19/2025/19:50 Family Phys: NADYA VALENTIN Charge Code: [id number] Physician: SAULO NEFF Meade Order #: [id number] Dose#: 5.70 1. Moderate gastric distention. 2. Aortic, iliac and femoral artery calcification. Dictated by: Yoselin Rock MD on 01/20/2025 at 9:19 Approved by: Yoselin Rock MD on 01/20/2025 at 9:23 Normal [facility] LIPASEon 01-19-2025 Lipase [Catalytic activity/Vol] 80.0 U/L High 15.0 - 78.0 [facility] Comment on above: Result Comment: *PLE ASE NOTE THAT RANGES FOR LIPASE HAVE CHANGED OF 08/15/23 DUE TO AN ASSAY UPDATE BY THE [employer].THE NEW ASSAY RANGE IS 6-250 U/L, WITH A REFERENCE RANGE OF 16-77 U/L. Performed By: #### 2 14734 #### [facility],[address] [place] [address] URINALYSISon 01-19-2025 Amorphous NONE Normal [facility] Comment on above: Performed By: #### 2 45649 #### [facility],[address] [place] [address] Bacteria 1+ Normal [facility] Comment on above: Performed By: #### 2 01579 #### [facility],[address] [place] [address] Bilirubin Ql (U) Negative Normal NORMAL: NEGATIVE [facility] Comment on above: Performed By: #### 2 21444 #### [facility],[address] [place] [address] Casts SEE BELOW Normal [facility] Comment on above: Performed By: #### 2 21287 #### [facility],[address] [place], [place] [id number] Clarity (U) clear Normal NORMAL: CLEAR [facility] Comment on above: Performed By: #### 2 80848 #### [facility],[address] [place], [place] [id number] Color (U) olivia Normal NORMAL: YELLOW [facility] Comment on above: Performed By: #### 2 51076 #### [facility],[address] [place] [address] Crystals LM Nom (Urine sed) NONE Normal [facility] Comment on above: Performed By: #### 2 79565 #### [facility],[address] [place], [place] [id number] Epi Cells OCC Normal [facility] Comment on above: Performed By: #### 2 14003 #### [facility],[address] [place] [address] 15068 Glucose Ql (U) 250 Abnormal NORMAL: NORMAL [facility] Comment on above: Performed By: #### 2 55947 #### [facility],[address] [place] [address] 96933 Hemoglobin Ql (U) Negative Normal NORMAL: NEGATIVE [facility] Comment on above: Performed By: #### 2 18427 #### [facility],[address] [place] [address] 61291 Hyaline 1-5 Normal NORMAL: NONE [facility] Comment on above: Performed By: #### 2 11507 #### [facility],[address] [place] [address] 45875 Ketone 5 Abnormal NORMAL: NEGATIVE [facility] Comment on above: Performed By: #### 2 96503 #### [facility],[address] [place] [address] 04121 Leukocytes 25 Abnormal NORMAL: NEGATIVE [facility] Comment on above: Performed By: #### 2 82213 #### [facility],[address] [place] [address] 75091 Mucous TRACE Normal [facility] Comment on above: Performed By: #### 2 25909 #### [facility],[address] [place] [address] 99090 Nitrite Ql (U) Negative Normal NORMAL: NEGATIVE [facility] Comment on above: Performed By: #### 2 11600 #### [facility],[address] [place] [address] 90087 pH (U) 5 [pH] Normal NORMAL: 5.0-8.0 [facility] Comment on above: Performed By: #### 2 21460 #### [facility],[address] [place] [address] 54888 Protein Ql (U) 30 Abnormal NORMAL: NEGATIVE [facility] Comment on above: Performed By: #### 2 40357 #### [facility],[address] [place] [address] 52043 Rbc NONE Normal 0-3/hpf [facility] Comment on above: Performed By: #### 2 13008 #### [facility],[address] [place] [address] 65327 Sp [place] 1.020 Normal NORMAL: 1.010-1.030 [facility] Comment on above: Performed By: #### 2 66164 #### [facility],[address] [place] [address] Specimen Type R Normal [facility] Comment on above: Performed By: #### 2 89309 #### [facility],[address] [place], [place] [id number] Urinalysis dipstick W Reflex Microscopic panel (U) SEE BELOW Normal [facility] Comment on above: Result Comment: MICR OSCOPIC Performed By: #### 2 19163 #### [facility],[address] [place] [address] Urobilinog 1 Abnormal NORMAL: NORMAL [facility] Comment on above: Performed By: #### 2 93837 #### [facility],[address] [place] [address] 35481 Wbc 1-5 Normal 0-5/hpf [facility] Comment on above: Performed By: #### 2 54989 #### [facility],[address] [place], [place] [id number] Yeast NONE Normal [facility] Comment on above: Performed By: #### 2 27426 #### [facility],[address] [place], [place] [id number] CERVICAL SP COMPLETE, 4 OR 5 VIEWSon 01-04-2025 CERVICAL SP COMPLETE, 4 OR 5 VIEWS [place] [address] Patient: JAMEL YEAGER Phone#: : 1960 Age: 64 Gender: M Pt. Type: Out Account: [id number] Location: [id number] Ordering: NADYA VALENTIN Exam Date: 01/04/2025/9:04 Family Phys: Charge Code: [id number] Physician: Meade Order #: [id number] Dose#: PROCEDURE: X-RAY CERVICAL SPINE W/ AP, LATERAL, ODONTOID, AND OLBIQUES VIEWS COMPARISON: [facility], XR, CERVICAL SPINE COMPLETE, 06/30/2024, 11:21. INDICATIONS: Cervical radicular pain. FINDINGS: BONES: Degenerative changes of the spine are present most marked at the C5-6 and C6-7 levels. Large anterior osteophytes are present. Foraminal impingement is most marked on the left at the C5-6 level. Foraminal impingement is most marked on the right at C5-6 and C6-7 DISC SPACES: Disc space narrowing is present at C5-6. PARASPINOUS: Surgical clips are present to the left of the spine. OTHER: Negative. CONCLUSION: 1. Degenerative changes of the spine are present with foraminal impingement at C5-6 and C6-7. 2. There is no evidence of acute fracture. 3. There has been no significant change since prior exam. Dictated by: Yoselin Rock MD on 01/04/2025 at 13:55 Approved by: Yoselin Rock MD on 01/04/2025 at 13:59 Normal [facility] HEMOGLOBIN A1C (POM)on 01-04 Glucose [Mass/Vol] 108.3 mg/dL High 0.0 - 0.0 [facility] Comment on above: Result Comment: BLDo HEMOGLOBIN A1C REFERENCE RANGESBLDo Suggested Diagnosis HbA1c(%) HbA1C (mmol/mol Diabetic >/=6.5 >/=48 Prediabetes 5.7 - 6.4 39 - 47 Normal <5.7 <39 Performed By: #### 2 28792 #### [facility],[address] [place] [address] HbA1c (Bld) [Mass fraction] 5.4 % Normal 0.0 - 6.5 [facility] Comment on above: Performed By: #### 2 39717 #### [facility],[address] [facility] [address] Bedside Glucoseon 12-24-2024 FINGERSTICK GLU 120 mg/dL High 74-106 [facility] Comment on above: Result Comment: MALLORY GEMENT OF PATIENT CARE PER NURSING PROTOCOL Performed By: #### L 501.080 #### [facility] [address] [place], [address] Bedside Glucoseon 2024 FINGERSTICK GLU 80 mg/dL Normal 74-106 [facility] Comment on above: Result Comment: MALLORY GEMENT OF PATIENT CARE PER NURSING PROTOCOL Performed By: #### L 501.080 #### [facility] [address] [place], [address] FINGERSTICK GLU 67 mg/dL Low 74-106 [facility] Comment on above: Result Comment: MALLORY GEMENT OF PATIENT CARE PER NURSING PROTOCOL Performed By: #### L 501.080 #### [facility] [address] [place], [address] FINGERSTICK GLU 70 mg/dL Low 74-106 [facility] Comment on above: Result Comment: MALLORY GEMENT OF PATIENT CARE PER NURSING PROTOCOL Performed By: #### L 501.080 #### [facility] [address] [place], [address] FINGERSTICK GLU 142 mg/dL High 74-106 [facility] Comment on above: Result Comment: MALLORY GEMENT OF PATIENT CARE PER NURSING PROTOCOL Performed By: #### L 501.080 #### [facility] [address] [place], [address] Emergency Department Summary on 2024 Emergency Department Summary [facility] [address] [place] [address] Emergency Department Summary 12/23/24 MR#: [id number] Acct: [id number] Name: JAMEL YEAGER Rep #: [id number] : 1960 64 From: Alli Garcia DO PCP: MARLENY Ramirez Status:DEP ER Location: ED HPI History of Present Illness Chief Complaint: Hypoglycemia Detail of Chief Complaint: Hypoglycemia Informant: patient Narrative Narrative: Patient presents to the emergency department via EMS with hypoglycemic episode. Patient remembers going to [employer] to buy some food and then does not remember what happened until he became aw are where he was in the ambulance. Apparently on EMS arrival he was confused and disoriented and finger stick blood sugar was 33. He received oral glucose which really did not seem to improve his blood sugar and then received D10. On arrival to the emergency department blood sugar was 120. As I interviewed the patient he states that he did not eat this morning and gave himself 7 units of regular insulin. Patient also takes long-acting insulin at night and also takes oral medication. He denies recent illness. Currently has no complaints. [facility] Medical History Alcohol use Allergies Anxiety Arthritis Atherosclerotic heart disease of [place] coronary artery without angina pectoris Cardiology follow-up encounter Carotid stenosis Cataracts, bilateral Chronic insomnia Chronic left ear pain Depression Diabetes Diabetes mellitus type II, controlled Diabetic neuropathy Easy bruising Essential hypertension Excessive bleeding Gastric reflux GERD (gastroesophageal reflux disease) High cholesterol History of echocardiogram History of edema History of ETOH abuse History of pain when walking History of stress test History of stroke (10/30/21) Hyperlipidemia Insulin dependent diabetes mellitus Leg cramps Major depression in remission Memory impairment Peripheral vascular occlusive disease Smoker Stage 3 chronic kidney disease Stroke/cerebrovascula r accident Tobacco abuse Wears dentures Home Medications ???Medication ???Instructions ???Recorded ???Last Taken ???Type clopidogrel 75 mg tablet 75 mg PO DAILY BLOOD THINNER 12/0912/23/24 History furosemide 40 mg tablet 40 mg PO DAILY DIURETIC 12/09/13 0 12/23/24 History pantoprazole 40 mg tablet,delayed 40 mg PO DAILY GERD 12/09/1304/11 History release empagliflozin 10 mg tablet 10 mg PO DAILY DIABETES 02/27/22 0 12/23/24 History (Jardiance) insulin lispro 100 unit/mL See Protocol subcut USEASDIRECTD 0 02/27/22 12/23/24 History subcutaneous pen (Humalog KwikPen DIABETES (U-100) Insulin) losartan 100 mg tablet 100 mg PO DAILY BP 02/27/22 History metoprolol tartrate 50 mg tablet 50 mg PO BID BP 02/27/22 12/23/24 History sertraline 50 mg tablet 75 mg PO QHS DEPRESSION 02/27/22 0 01/25/23 History sitagliptin phosphate 100 mg 100 mg PO DAILY DIABETES 02/27/22 12/23/24 History tablet (Januvia) hydroxyzine HCl 50 mg tablet 50 mg PO QHS SLEEP 01/20/23 History acetaminophen 500 mg tablet 500 mg PO Q6H PRN pain 12/23/24 Un known History albuterol sulfate 90 mcg/actuation 1 - 2 puff inhalation Q6H PRN Unknown History aerosol inhaler shortness of breath or wheezing gabapentin 600 mg tablet 600 mg PO BID 12/23/24 12/23/24 Hi story insulin glargine 100 unit/mL (3 20 unit subcut DAILY 12/23/2403/11 History mL) subcutaneous pen (Lantus Solostar U-100 Insulin) rosuvastatin 20 mg tablet 20 mg PO DAILY 12/23/24 12/23/24 H istory Allergy/AdvReac Type Severity Reaction Status Date / Time tramadol (From [facility]) AdvReac Severe Rash Verified 12/23/24 14:24 Family History Brother Kidney disease Mother Asthma Heart disease Hypertension Father Cancer Heart disease Hypertension Surgical History H/O coronary artery bypass surgery (03/09/07) History of angioplasty of peripheral vessel Social History Smoking Status: Light Smoker (<10/day) Tobacco: How many years used: 45 alcohol intake: current substance use type: does not use what type of physical activity do you participate in: walking frequency: daily [place]/syn[employer]: [employer] seatbelt use: always ROS ROS ED ROS Narrative Hypoglycemia/confusio n Review of Systems ROS Unobtainable: other Constitutional Constitutional ED: Reports lethargy; Denies chills, fever(s), sweats or weight loss Eyes Eyes: Denies blurry vision, change in vision or diplopia ENT ENT ED: Denies rhinorrhea or sore throat Cardiovascular Cardiovascular: (more content not included)... Normal [facility] Gl[facility] deOrdered By: Alli Garcia on 2024 Glucose [Mass/Vol] 80 mg/dL 74-106 [facility] Comment on above: MANAGEMENT OF PATIEN T CARE PER NURSING PROTOCOL Glucose [Mass/Vol] 67 mg/dL Low 74-106 [facility] Comment on above: MANAGEMENT OF PATIEN T CARE PER NURSING PROTOCOL CBC (NO DIFF)on 10-13-2024 CBC panel Auto (Bld) Normal [facility] Comment on above: Result Comment: CBC( WITHOUT DIFFERENTIAL) Performed By: #### 2 60141 #### [facility],[address] [place] [address] Erythrocyte distribution width (RBC) [Ratio] 12.7 % Normal 12.0 - 15.6 [facility] Comment on above: Performed By: #### 2 37928 #### [facility],[address] [place] [address] Hematocrit (Bld) [Volume fraction] 44.4 % Normal 40.0 - 52.0 [facility] Comment on above: Performed By: #### 2 25733 #### [facility],[address] [place] [address] Hemoglobin (Bld) [Mass/Vol] 15.3 g/dL Normal 13.0 - 17.5 [facility] Comment on above: Performed By: #### 2 84469 #### [facility],[address] [place] [address] MCH (RBC) [Entitic mass] 32 pg Normal 27 - 33 [facility] Comment on above: Performed By: #### 2 17816 #### [address] [address] MCHC 34 X10 3 Normal 32 - 36 [facility] Comment on above: Performed By: #### 2 31318 #### [facility],[address] [place] [address] MCV (RBC) [Entitic vol] 94 fL Normal 81 - 98 [facility] Comment on above: Performed By: #### 2 66162 #### [facility],[address] [place] [address] PLATELET 244 x10EE3/UL Normal 150 - 450 [facility] Comment on above: Performed By: #### 2 61733 #### [facility],[address] [place] [address] Platelet mean volume (Bld) [Entitic vol] 7.7 fL Normal 6.4 - 10.5 [facility] Comment on above: Performed By: #### 2 36726 #### [facility],[address] [place], [place] [id number] RBC 4.72 x 10EE6/UL Normal 4.50 - 6.00 [facility] Comment on above: Performed By: #### 2 06117 #### [facility],[address] [place] [address] WBC 10.7 x 10EE3/UL Normal 4.5 - 10.8 [facility] Comment on above: Performed By: #### 2 96591 #### [facility],[address] [place] [address] CMP with eGFRon 10-13-2024 AGE 63 years Normal [facility] Comment on above: Performed By: #### 2 16975 #### [facility],[address] [place] [address] Albumin [Mass/Vol] 3.9 g/dL Normal 3.4 - 5.0 [facility] Comment on above: Performed By: #### 2 24800 #### [facility],[address] [place] [address] Albumin/Globulin [Mass ratio] 1.2 {ratio} Normal 0.9 - 1.6 [facility] Comment on above: Performed By: #### 2 48474 #### [facility],[address] [place] [address] ALK PHOS 110 U/L Normal 46 - 116 [facility] Comment on above: Performed By: #### 2 92662 #### [facility],[address] [place] [address] ALT [Catalytic activity/Vol] 12 U/L Low 16 - 63 [facility] Comment on above: Performed By: #### 2 68409 #### [facility],[address] [place] [address] Anion gap [Moles/Vol] 8 mmol/L Low 10 - 20 [facility] Comment on above: Performed By: #### 2 86791 #### [facility],[address] [place], [place] [id number] AST [Catalytic activity/Vol] 12 U/L Low 15 - 37 [facility] Comment on above: Performed By: #### 2 85490 #### [facility],[address] [place] [address] B/C RATIO 8 ratio Normal 0 - 30 [facility] Comment on above: Performed By: #### 2 16193 #### [facility],[address] [place] [address] Bilirubin [Mass/Vol] 0.3 mg/dL Normal 0.2 - 1.0 [facility] Comment on above: Performed By: #### 2 11462 #### [facility],[address] [place] [address] Calcium [Mass/Vol] 9.6 mg/dL Normal 8.5 - 10.1 [facility] Comment on above: Performed By: #### 2 59074 #### [facility],[address] [place] [address] Chloride [Moles/Vol] 104 mmol/L Normal 98 - 107 [facility] Comment on above: Performed By: #### 2 13184 #### [facility],[address] [place] [address] CMP with eGFR Normal [facility] Comment on above: Result Comment: COMP REHENSIVE METABOLIC PANEL Performed By: #### 2 44172 #### [facility],[address] [place] [address]69 CO2 [Moles/Vol] 35.0 mmol/L High 21.0 - 32.0 [facility] Comment on above: Performed By: #### 2 74689 #### [facility],[address] [place] [address] Creatinine [Mass/Vol] 1.29 mg/dL Normal 0.70 - 1.30 [facility] Comment on above: Performed By: #### 2 58813 #### [facility],[address] [place], [place] [id number] eGFR 56 ML/MINUTE Low 60 - 999 [facility] Comment on above: Performed By: #### 2 96448 #### [place] [id number] GFR/1.73 sq M.predicted among non-blacks MDRD (S/P/Bld) [Vol rate/Area] mL/min/{1.73_m2} Normal 60 - 999 [facility] Comment on above: Result Comment: ACCO RDING TO THE NATIONAL KIDNEY DISEASE EDUCATION PROGRAM(NKDE), A NORMAL eGFR IS A VALUE GREATER THAN OR EQUAL TO 60 ML/MIN/1.73 SQ METERS. CHRONIC KIDNEY DISEASE: <60mL/MIN/1.73 SQ METERS KIDNEY FAILURE: <15mL/MIN/1.73 SQ METERS THIS TEST SHOULD ONLY BE USED FOR PATIENTS 18 YEARS OF AGE AND OLDER. Performed By: #### 2 62407 #### [facility],[address] [place] [address] Globulin (S) [Mass/Vol] 3.2 g/dL Normal 1.5 - 3.8 [facility] Comment on above: Performed By: #### 2 99705 #### [facility],[address] [place] [address]48 Glucose [Mass/Vol] 91 mg/dL Normal 74 - 106 [facility] Comment on above: Performed By: #### 2 81505 #### [facility],[address] [place] [address]21 Potassium [Moles/Vol] 4.9 mmol/L Normal 3.5 - 5.1 [facility] Comment on above: Performed By: #### 2 84674 #### [facility],[address] [place] [address]55 Protein [Mass/Vol] 7.1 g/dL Normal 6.4 - 8.2 [facility] Comment on above: Performed By: #### 2 10305 #### [facility],[address] [place] [address]6588 Sodium [Moles/Vol] 142 mmol/L Normal 136 - 145 [facility] Comment on above: Performed By: #### 2 46769 #### [facility],[address] [place] [address]131 Urea nitrogen [Mass/Vol] 10 mg/dL Normal 7 - 18 [facility] Comment on above: Performed By: #### 2 14371 #### [facility],[address] [place] [address] HEMOGLOBIN A1C (POM)on 10-13 Glucose [Mass/Vol] 131.2 mg/dL High 0.0 - 0.0 [facility] Comment on above: Result Comment: BLDo HEMOGLOBIN A1C REFERENCE RANGESBLDo Suggested Diagnosis HbA1c(%) HbA1C (mmol/mol Diabetic >/=6.5 >/=48 Prediabetes 5.7 - 6.4 39 - 47 Normal <5.7 <39 Performed By: #### 2 63923 #### [address],[place] [address] HbA1c (Bld) [Mass fraction] 6.2 % Normal 0.0 - 6.5 [facility] Comment on above: Performed By: #### 2 25177 #### [facility],[address] [place] [address] LIPID PROFILEon 10-13-2024 Cholesterol [Mass/Vol] 148 mg/dL Normal 0 - 240 [facility] Comment on above: Performed By: #### 2 59032 #### [facility],[address] [place] [address] 05856 Cholesterol in HDL [Mass/Vol] 47 mg/dL Normal 40 - 60 [facility] Comment on above: Performed By: #### 2 85651 #### [facility],[address] [place] [address] 87598 Cholesterol in LDL [Mass/Vol] 56 mg/dL Normal 0 - 129 [facility] Comment on above: Performed By: #### 2 87470 #### [facility],[address] [place] [address]13 Cholesterol.total/Choles terol in HDL [Mass ratio] 3.1 {ratio} Normal 0.0 - 5.0 [facility] Comment on above: Performed By: #### 2 56286 #### [facility],[address] [place] [address] 60331 Lipid 1996 panel Normal [facility] Comment on above: Result Comment: LIPI D PROFILE Performed By: #### 2 89563 #### [facility],[address] [place] [address] 85391 Triglyceride [Mass/Vol] 227 mg/dL High 0 - 150 [facility] Comment on above: Performed By: #### 2 66088 #### [facility],[address] [place] [address]27 URINE MICROALBUMIN, RANDOMon 10-13-2024 MICROALBUMIN UR 3.9 mg/dL Normal 0.1 - 25.1 [facility] Comment on above: Performed By: #### 2 01784 #### [facility],[address] [place] [address]47 CERVICAL SP COMPLETE, 4 OR 5 VIEWSon 06-30-2024 CERVICAL SP COMPLETE, 4 OR 5 VIEWS [facility] [address] [place] [address] Patient: JAMEL YEAGER Phone#: : 1960 Age: 63 Gender: M Pt. Type: Out Account: [id number] Location: [facility] Ordering: NADYA VALENTIN Exam Date: 06/30/2024/11:21 Family Phys: Charge Code: [id number] Physician: Meade Order #: [id number] Dose#: PROCEDURE: X-RAY CERVICAL SPINE W/ AP, LATERAL, ODONTOID, AND OLBIQUES VIEWS COMPARISON: None. INDICATIONS: Neck pain, bilateral posterior. FINDINGS: BONES: Degenerative changes are present. Anterior osteophytes are present. Posterior osteophytes are present at the C5-6 and C6-7 levels with foraminal narrowing. DISC SPACES: Disc space narrowing is present most marked at C5-6 and C6-7 PARASPINOUS: Negative. No paraspinous abnormality is seen. OTHER: Surgical clips are present in the soft tissues to the left of the spine. CONCLUSION: 1. Degenerative changes are present and most marked at C5-6 and C6-7. 2. There is no evidence of acute fracture or subluxation. Dictated by: Yoselin Rock MD on 06/30/2024 at 15:02 Approved by: Yoselin Rock MD on 06/30/2024 at 15:07 Normal [facility] HEMOGLOBIN A1C (POM)on 06-30 Glucose [Mass/Vol] 145.6 mg/dL High 0.0 - 0.0 [facility] Comment on above: Result Comment: BLDo HEMOGLOBIN A1C REFERENCE RANGESBLDo Suggested Diagnosis HbA1c(%) HbA1C (mmol/mol Diabetic >/=6.5 >/=48 Prediabetes 5.7 - 6.4 39 - 47 Normal <5.7 <39 Performed By: #### 2 15745 #### [facility],[address] [place] [address]87 HbA1c (Bld) [Mass fraction] 6.7 % High 0.0 - 6.5 [facility] Comment on above: Performed By: #### 2 11746 #### [facility],[address] [place] [address]2509 SHOULDER COMPLETE RTon 06-30 SHOULDER COMPLETE RT [place] [address] Patient: JAMEL YEAGER Phone#: : 1960 Age: 63 Gender: M Pt. Type: Out Account: [id number] Location: [facility] Ordering: NADYA VALENTIN Exam Date: 06/30/2024/11:35 Family Phys: Charge Code: [id number] Physician: Meade Order #: [id number] Dose#: PROCEDURE: X-RAY SHOULDER COMPLETE RT MIN 2 VIEWS COMPARISON: [facility], XR, SHOULDER RT, 03/26/2023, 8:58. INDICATIONS: Pain, joint, shoulder, right. FINDINGS: BONES: Degenerative changes are present at the acromioclavicular joint. There is no evidence of acute bone abnormality. SOFT TISSUES: Negative. No visible soft tissue swelling. EFFUSION: None visible. OTHER: Sternotomy sutures are present. Chronic interstitial changes are present in the right upper lung. CONCLUSION: 1. Mild degenerative changes are present at the acromioclavicular joint. There is been no significant change since previous exam. Dictated by: Yoselin Rock MD on 06/30/2024 at 15:31 Approved by: Yoselin Rock MD on 06/30/2024 at 15:32 Normal [facility] ED MED ADMINISTRATION DETAIL on 06-15-2024 ED MED ADMINISTRATION DETAIL Trolley Operator Medication Administration Record [address] [place] [address] [id number] 06/15/2024 Patient: JAMEL YEAGER Sex: Male : 1960 Age: 63y MEASUREMENTS: Wt: 66.7 kg, Ht/Edmar: 63.0 in, BMI: 26.04 ALLERGIES: Ultram Medication Ordered Medication Administration Date/Time OxyCODONE-APAP 16:12 06/15 OxyCODONE-APAP PO 1 tab given. Allergies verified Given PO 1 tab (NOW x1) and confirmed 5 rights. Information reviewed with patient including 16:12 06/15/2024 reason for taking this medication, signs of allergic reaction, Wes Eastep, R.N. precautions and sedative warning. Verbalizes understanding. Vitals: Scanned 16:01 06/15/2024 BP: 132/62 MAP: 102 mmHg. HR: 68 bpm. 16:01 06/15/2024 HR: 70 bpm. O2 saturation: 95%. - 16:13 Wes Eastep, R.N. PredniSONE PO 40 16:13 06/15 PredniSONE PO 40 mg given. Allergies verified and Given mg confirmed 5 rights. Information reviewed with patient including 16:13 06/15/2024 reason for taking this medication, signs of allergic reaction and Wes Eastep, R.N. precautions. Verbalizes understanding. - 16:14 Weslong Fox, R.N. Scanned 1 of 1 Normal [facility] ED NURSES CLINICAL NOTEon ED NURSES CLINICAL NOTE Nurse Narrative Nurse Clinical Narrative [address] [address] [id number] 06/15/2024 Patient: JAMEL YEAGER Sex: Male : 1960 Age: 63y Disposition: Discharge to Home Disposition Decision Time: 16:37 06/15/2024 Departure Time: 16:45 06/15/2024 TRIAGE Arrived by private vehicle. Historian: patient. Patient has a primary care physician. Primary physician (Krystal Valentin). Triage time: 15:13 06/15/2024. Acuity: LEVEL 3. Chief Complaint: RIGHT UPPER EXTREMITY PAIN. Location of symptoms- right shoulder. Alert. No acute distress. No injury occurred. This started yesterday. It is described as radiating to the right neck and left neck, upper extremity and shoulder. SEPSIS SCREEN: NEGATIVE. SIRS criteria negative. No possible sources of infection. -- 15:22 06/15/24 EDT Yasir BetancourtN. 15:21 06/15/24. BP: 148/73 while lying. MAP: 98. HR: 74. Regular and normal rate. RR: 18. Regular, unlabored and deep. Rate is normal. O2 saturation: 94% on room air. Temperature: 98.4 F (oral). Pain level now 05/27. -- 15:22 06/15/24 EDT Wes Fox R.N. Measurements: 15:21 06/15/24 Wt: 66.7 kg, Ht/Edmar: 63.0 in, BMI: 26.04 -- 15:21 06/15/24 EDT Wes Fox R.N. Medications: 1 of 4 Nurse Narrative home medications unknown -- 15:17 06/15/24 ZHAOT Yasir BetancourtN. Allergies: Ultram -- 15:17 06/15/24 ZHAOT Wes Fox R.N. Problems: Coronary Artery Disease -- 15:17 06/15/24 EDT Wes Fox R.N. Hypertension -- 15:17 06/15/24 EDT Jamie Betancourt.N. Ischemic stroke -- 15:18 06/15/24 EDT Yasir BetancourtN. Asthma -- 15:18 06/15/24 EDT Wes Fox R.N. Arthritis -- 15:18 06/15/24 EDT Wes Fox R.N. Diabetes Mellitus -- 15:19 06/15/24 EDT Jamie Betancourt.N. 15:13 06/15/24. Preferred pharmacy: [facility]. -- 15:22 06/15/24 EDT Jamie Betancourt.[place]. ADDITIONAL SURGERIES: Coronary artery bypass grafts x 4 -- 15:19 06/15/24 Yasir RamirezN. Bilateral eyes -- 15:19 06/15/24 ZHAOT Yasir BetancourtNSheila History 15:13 06/15/24. PAST MEDICAL HX: Immunizations: up-to-date. SOCIAL HX: Light tobacco smoker (cigarette)- less than 1/2 a pack per day. Alcohol use; consumes beer occasionally. No drug use. The patient has not traveled outside the [place] Infectious disease exposure: No infectious disease exposure. ABUSE ASSESSMENT: The patient answered yes to the question(s) Do you feel safe in your home? and no to the question(s) Are you afraid to go home?. SELF HARM ASSESSMENT: Self harm assessment was performed. The patient answered no to the question(s) Have you recently felt down, depressed, or hopeless? and Do you have thoughts of harming or 2 of 4 Nurse Narrative killing yourself?. FALL RISK ASSESSMENT: Fall risk assessment completed. No risk factors identified. -- 15:22 06/15/24 EDJolanta Fox R.N. Interventions 15:13 06/15/24. Identification band and allergy band on patient. Advanced care plan (Full Code). -- 15:22 06/15/24 BENJAMIN Fox R.N. PHYSICAL ASSESSMENT 15:20 06/15/24. Ambulatory to room. (Pt c/o sudden onset right shoulder pain that radiates into the right arm, neck and left shoulder since yesterday morning. Denies recent injury to the area.). GENERAL / NEURO / PSYCH: Oriented X 4. Alert. Appears in pain. No weakness. No numbness. HEENT: Posterior neck: tenderness. No erythema, swelling, ecchymosis or deformity. RESPIRATORY: No respiratory distress. Respirations not labored. Breath sounds within normal limits. ( Reports intermittent SOB.). CVS: Heart sounds within normal limits. Pulses within normal limits. ( Denies chest pain or diaphoresis.). Capillary refill less than 2 seconds. GI / : No nausea noted. No emesis noted. EXTREMITIES: Right scapula area: tenderness. Limited ROM in the right arm secondary to pain (diminished abduction). No erythema, swelling, ecchymosis or deformity. Left scapula area: No erythema, tenderness, swelling, ecchymosis or deformity. Extremities exhibit normal ROM. Neuro-vascular status intact to the extremity. No upper extremity edema. Right shoulder: tenderness. Limited ROM due to pain (diminished abduction). No erythema, swelling, ecchymosis or deformity. SKIN: Skin intact. Skin is warm and dry. -- 15:32 06/15/24 Jamie Ramirez.N. NURSING PROGRESS NOTES 15:20 06/15/24. Patient identifiers checked. Call light placed in reach. Side rails up x 1. Bed placed in lowest position. Brakes of bed on. -- 15:33 06/15/24 EDT Wes Fox R.N. 15:36 06/15/24. 12-LEAD EKG: EKG time: (15:36 06/15/2024). 12-Lead EKG was ordered, performed by me and shown to the ED physician. NSR. -- 15:39 06/15/24 EDT Wes Fox R.N. 16:12 06/15/24. OxyCODONE-APAP PO 1 tab given. Allergies verified and confirmed 5 rights. Information reviewed with patient includ (more content not included)... Normal [facility] ED ORDER SHEET (CPOE ONLY)on 06-15-2024 ED ORDER SHEET (CPOE ONLY) Order Sheet Order Sheet [address] [place] [address] [id number] 06/15/2024 Patient: JAMEL YEAGER Sex: Male : 1960 Age: 63y MEASUREMENTS: Wt: 66.7 kg, Ht/Edmar: 63.0 in, BMI: 26.04 ALLERGIES: Ultram MEDICATION/IV/DRIP/FL UID ORDERS Order Description Priority Entered Acknowledged Completed OxyCODONE-APAP PO1 tab 15:52 06/15/2024 16:08 16:13 (NOW x1) Saulo Neff, 06/15/2024 06/15/2024 Wes Lozano R.N. R.N. Reason for ordering with alerts: Benefits outweigh risks --15:52 06/15/2024 Saulo Neff D.O. PredniSONE PO40 mg 15:52 06/15/2024 16:08 16:14 Saulo Neff, 06/15/2024 06/15/2024 Wes Lozano R.N. R.N. LAB ORDERS Order Description Priority Entered Acknowledged Collected Completed EKG - ED Stat Stat 15:32 06/15/2024 15:33 06/15/2024 15:37 06/15/2024 Wes Barrientos Lucas Eastep, D.O. R.NSheila RSheilaNSheila 1 of 2 Order Sheet DIAGNOSTIC STUDY ORDERS Order Description Priority Entered Acknowledged Completed Humerus R 2V Stat Stat 16:05 06/15/2024 16:08 16:14 Saulo Neff, 06/15/2024 06/15/2024 Wes Lozano R.N. RIsra Reason for Study: Arm Pain STAFF ORDERS Order Description Priority Entered Acknowledged Collected Completed [Electronically signed by Saulo Neff D.O. (06/15/2024 23:04 EDT)] 2 of 2 Normal [facility] ED PHYSICIAN CLINICAL REPORT on 06-15-2024 ED PHYSICIAN CLINICAL REPORT Narrative Physician Clinical Narrative [address] [address] [phone] 06/15/2024 Patient: JAMEL EYAGER Sex: Male : 1960 Age: 63y Disposition: Discharge to Home Disposition Decision Time: 16:37 06/15/2024 Departure Time: 16:45 06/15/2024 Measurements Wt: 66.7 kg, Ht/Edmar: 63.0 in, BMI: 26.04 Initial Vital Sign Measured Time BP MAP HR RR O2Sat ETCO2 Temp Pain GCS RTS 15:21 06/15/2024 148/73 98 74 18 94% RA 98.4 F 10 Time Seen: 15:10 06/15/2024. Arrived- By private vehicle. Historian- patient. HISTORY OF PRESENT ILLNESS Chief Complaint: UPPER EXTREMITY PAIN. This started yesterday and is still present. Severity is described as being severe. The quality is noted to be sharp, burning and pain. It is described as radiating to the right scapula. Symptoms located in the area of the right scapula, right shoulder and right arm. Patient denies an injury. REVIEW OF SYSTEMS CONSTITUTIONAL: No fever or chills. NEUROLOGICAL: No headache. THROAT: No sore throat. GI: No abdominal pain. : No difficulty with urination, urinary frequency or hematuria. PAST HISTORY 1 of 4 Narrative Arthritis Asthma Coronary Artery Disease Diabetes Mellitus Hypertension Ischemic stroke Surgeries: Bilateral eyes Coronary artery bypass grafts x 4 Medications: home medications unknown Allergies: Ultram SOCIAL HISTORY Current every day smoker. Occasional alcohol use. ADDITIONAL NOTES The nursing notes have been reviewed. PHYSICAL EXAM Appearance: Alert. No acute distress. Appears to be in pain. Eyes: Pupils equal, round and reactive to light. Eyes normal inspection. ENT: Ears normal. Nose normal. Neck: Normal inspection. CVS: Normal heart rate. Respiratory: No respiratory distress. Painless inspiration. Abdomen: Soft and nontender. Back: Normal inspection. No tenderness. Skin: Skin intact. Skin warm and dry. Normal skin color. Normal skin turgor. Extremities: Upper extremities normal to inspection. Upper extremities exhibit normal ROM. Upper extremities 2 of 4 Narrative nontender. Extremities otherwise negative. Neuro: Oriented X 3. No motor deficit. No sensory deficit. LABS, X-RAYS, AND EKG 12-LEAD EKG: EKG time: 15:36 06/15/2024. No acute process. No acute ischemia. Normal EKG. Rate: 69. Interpretation time: 16:15 06/15/2024. Diagnostic Study Tests: HUMERUS RT Final EXAM Date: 06/15/2024 16:42:00 EDT MsgRcvd: 06/15/2024 16:45 EDT [place] [address] Patient: JAMEL YEAGER Phone#: : 1960 Age: 63 Gender: M Pt. Type: ER Account: [id number] Location: [facility] Ordering: SAULO NEFF Exam Date: 06/15/2024/16:07 Family Phys: ANDYA VALENTIN Charge Code: [id number] Physician: Meade Order #: [id number] Dose#: PROCEDURE: X-RAY HUMERUS RT MIN 2 VIEWS COMPARISON: None. INDICATIONS: [place] pain. FINDINGS: BONES: Normal. No significant arthropathy or acute abnormality. SOFT TISSUES: Negative. No visible soft tissue swelling. EFFUSION: None visible. OTHER: Negative. CONCLUSION: No acute disease. Dictated by: Yoselin Rock MD on 06/15/2024 at 16:41 Approved by: Yoselin Rock MD on 06/15/2024 at 16:42 PROGRESS AND PROCEDURES 3 of 4 Narrative MEDICAL DECISION MAKING: (Patient came in complaining of pain in his right arm which went into his neck and then went to his other shoulder. It started yesterday and got really intense and he just could not do with it and presented to the emergency department he has had a history of neck problems. He is able to move his shoulder and arm but does complain of pain. He has had a history of this a couple months ago but was not severe. His x-ray of his arm was unremarkable. I suspect it may be from his neck. I did give him Percocet as well as prednisone and he will be discharged home with diagnosis of acute right arm shoulder pain suspect possible neck etiology or refer him to Dr. Ledesma as well as Krystal Valentin). Disposition: Condition: stable. Discharged in fair condition. Discharge decision based on the following: patient's condition is stable; patient's exam is stable. CLINICAL IMPRESSION Upper extremity pain involving the right shoulder and right upper arm. DISCHARGE INSTRUCTIONS Apply ice. Prescription Medications: Percocet 5 mg-325 mg tablet: Take 1 tablet by mouth every six to eight hours as needed for pain for 5 days, dispense 12 tablet. Refills 0. Pharmacy: [facility]/pharmacy #[id number] - [address] [place], [place] [id number]. prednisone 20 mg tablet: Take 1 tablet by mouth once a day for 5 days, dispense 5 tablet. Refills 0. Pharmacy: [facility]/pharmacy #[id number] - [address] [place], [place] [address] (more content not included)... Normal [facility] ED SUPER BILLon 06-15-2024 ED SUPER BILL [place] [id number] [facility] [place] [address] [phone] 06/15/2024 Patient: JAMEL YEAGER Sex: Male : 1960 Age: 63y Item Professional Category Description Facility Code Code Quantity Fee Total Nurse/E/M EMERGENCY 745167 1 $0.00 $0.00 DEPARTMENT VISIT MODERATE SEVERITY (13126-00) Grand Total $0.00 Providers Saulo Neff D.O. Chief Complaint UPPER EXTREMITY PAIN. Principal Diagnosis Upper extremity pain involving the right shoulder and right upper arm. ICD-10 Codes 1 of 2 Superbill M25.511: Pain in right shoulder M79.621: Pain in right upper arm 2 of 2 Normal [facility] ED VISIT SUMMARYon ED VISIT SUMMARY Visit Overview Visit Overview [facility] [address] [place] [address] [phone] 06/15/2024 Patient: JAMEL YEAGER Sex: Male : 1960 Age: 63y 06/15/2024 11:04 PM EDT ED Arrival:15:11 06/15/2024 EDT Status: Recent Travel:no Language:eng Adv Directive: Isolation Status: Ethnicity:N Fall Risk:no risk Infectious Disease Exposure:no Measurements:5'3 / 160.0 Self-Harm Status:risk Sepsis Screen:negative cm 147.0 lb / 66.7 kg Chief Complaint:right shoulder, RIGHT UPPER EXTREMITY PAIN, and (Krystal Shashi) ALLERGIES Ultram HOME MEDICATIONS Unknown PAST MEDICAL HISTORY / PROBLEMS Arthritis Asthma of 4 Visit Overview Coronary Artery Disease Diabetes Mellitus Hypertension Immunizations: up-to-date Ischemic stroke PAST SURGICAL HISTORY Bilateral eyes Coronary artery bypass grafts x 4 SOCIAL HISTORY Smoking status: Yes Alcohol use: Yes Drug use: No ED COURSE MEDICATIONS GIVEN IN EMERGENCY DEPARTMENT 16:12 06/15/24 OxyCODONE-APAP PO 1 tab 16:13 06/15/24 PredniSONE PO 40 mg IV SITE INFORMATION INTAKE OUTPUT REASSESMENT (most recent) 2 of 4 Visit Overview 15:20 06/15/24. Ambulatory to room. (Pt c/o sudden onset right shoulder pain that radiates into the right arm, neck and left shoulder since yesterday morning. Denies recent injury to the area.). GENERAL / NEURO / PSYCH: Oriented X 4. Alert. Appears in pain. No weakness. No numbness. HEENT: Posterior neck: tenderness. No erythema, swelling, ecchymosis or deformity. RESPIRATORY: No respiratory distress. Respirations not labored. Breath sounds within normal limits. ( Reports intermittent SOB.). CVS: Heart sounds within normal limits. Pulses within normal limits. ( Denies chest pain or diaphoresis.). Capillary refill less than 2 seconds. GI / : No nausea noted. No emesis noted. EXTREMITIES: Right scapula area: tenderness. Limited ROM in the right arm secondary to pain (diminished abduction). No erythema, swelling, ecchymosis or deformity. Left scapula area: No erythema, tenderness, swelling, ecchymosis or deformity. Extremities exhibit normal ROM. Neuro-vascular status intact to the extremity. No upper extremity edema. Right shoulder: tenderness. Limited ROM due to pain (diminished abduction). No erythema, swelling, ecchymosis or deformity. SKIN: Skin intact. Skin is warm and dry. VITAL SIGNS First Vitals Last Vitals Temp 15:21 06/15/24 98.4 F Temp 16:41 06/15/24 BP 15:21 06/15/24 148/73 BP 16:41 06/15/24 HR 15:21 06/15/24 74 HR 16:41 06/15/24 65 RR 15:21 06/15/24 18 RR 16:41 06/15/24 O2 Sat 15:21 06/15/24 94% RA O2 Sat 16:41 06/15/24 93% Pain 15:21 06/15/24 10 Pain 16:41 06/15/24 ETCO2 15:21 06/15/24 ETCO2 16:41 06/15/24 GCS 15:21 06/15/24 GCS 16:41 06/15/24 RTS 15:21 06/15/24 RTS 16:41 06/15/24 PROCEDURES NURSING INTERVENTIONS LABS / STUDIES LABS / STUDIES ORDERED EKG - ED Humerus R 2V CLINICAL IMPRESSION 3 of 4 Visit Overview UPPER EXTREMITY PAIN INVOLVING THE RIGHT SHOULDER AND RIGHT UPPER ARM 4 of 4 Normal [facility] ED VITALS FLOW SHEETon 06-15 ED VITALS FLOW SHEET Vitals Vital Sign Flow Sheet [address] [place] [address] [phone] 06/15/2024 Patient: JAMEL YEAGER Sex: Male : 1960 Age: 63y Measurements Wt: 66.7 kg, Ht/Edmar: 63.0 in, BMI: 26.04 Measured Time BP MAP HR RR O2Sat ETCO2 Temp Pain GCS RTS 16:41 06/15/2024 65 93% 16:40 06/15/2024 18 7 16:36 06/15/2024 66 93% 16:31 06/15/2024 68 95% 16:31 06/15/2024 118/61 93 66 16:26 06/15/2024 67 95% 16:21 06/15/2024 68 95% 16:16 06/15/2024 70 95% 16:15 06/15/2024 146/99 108 71 16:06 06/15/2024 71 95% 16:01 06/15/2024 70 95% 16:01 06/15/2024 132/62 102 68 15:56 06/15/2024 71 95% 15:51 06/15/2024 72 94% 15:46 06/15/2024 72 93% 1 of 2 Vitals Measured Time BP MAP HR RR O2Sat ETCO2 Temp Pain GCS RTS 15:46 06/15/2024 135/55 103 72 15:41 06/15/2024 71 95% 15:36 06/15/2024 70 94% 15:21 06/15/2024 148/73 98 74 18 94% RA 98.4 F 10 2 of 2 Normal [facility] HUMERUS RTon 06-15-2024 HUMERUS RT [place] [address] Patient: JAMEL YEAGER Phone#: : 1960 Age: 63 Gender: M Pt. Type: ER Account: [id number] Location: 05 Ordering: SAULO NEFF Exam Date: 06/15/2024/16:07 Family Phys: NADYA VALENTIN Charge Code: [id number] Physician: Meade Order #: [id number] Dose#: PROCEDURE: X-RAY HUMERUS RT MIN 2 VIEWS COMPARISON: None. INDICATIONS: [place] pain. FINDINGS: BONES: Normal. No significant arthropathy or acute abnormality. SOFT TISSUES: Negative. No visible soft tissue swelling. EFFUSION: None visible. OTHER: Negative. CONCLUSION: No acute disease. Dictated by: Yoselin Rock MD on 06/15/2024 at 16:41 Approved by: Yoselin Rock MD on 06/15/2024 at 16:42 Normal [facility] Absolute lymphocyte countOrd ered By: Dr. Cartagena on 01-28-2023 Lymphocytes Auto (Unsp spec) [#/Vol] 3.52 10*3/uL 0.83-4.51 [facility] Basophil percentageOrdered B y: Dr. Cartagena on 01-28-2023 Basophils/100 WBC (Bld) 0.9 % 0-1 [facility] Eosinophils/100 WBC (Bld) 15.0 % 0-5 [facility] Neutrophils (Bld) [#/Vol] 3.7 10*3/uL 2.0-7.7 [facility] Neutrophils/100 WBC (Bld) 40.8 % 47-70 [facility] WBC (Bld) [#/Vol] 9.0 10*3/uL 4.4-11.0 [facility] Basophil percentageOrdered B y: Dr. Fischer on 01-28-2023 Chloride [Moles/Vol] 109 mmol/L 98-107 [facility] Glucose [Mass/Vol] 89 mg/dL 74-106 [facility] Potassium [Moles/Vol] 4.0 mmol/L 3.5-5.[address] [facility] Comment on above: Slight Hemolysis, Re sult may be falsely increased. Sodium [Moles/Vol] 139 mmol/L 136-145 [facility] Blood erythrocytes count (nu mber/volume)Ordered By: Dr. Cartagena on 01-28-2023 RBC (Bld) [#/Vol] 3.58 10*6/uL 4.6-6.2 [facility] Blood hemoglobin measurement (mass/volume)Ordered By: Dr. Cartagena on 01-28-2023 Hemoglobin (Bld) [Mass/Vol] 11.2 g/dL 13.0-16.5 [facility] Blood lymphocytes/100 leukoc ytesOrdered By: Dr. Cartagena on 01-28-2023 Lymphocytes/100 WBC (Bld) 39.1 % 19-41 [facility] Blood monocytes/100 leukocyt esOrdered By: Dr. Cartagena on 01-28-2023 Monocytes/100 WBC (Bld) 4.0 % 0-10 [facility] Blood platelet mean volumeOr dered By: Dr. Cartagena on 01-28-2023 Platelet mean volume (Bld) [Entitic vol] 9.8 fL 6.2-12.0 [facility] Determination of erythrocyte mean corpuscular volume (MCV)Ordered By: Dr. Cartagena on 01-28-2023 MCV (RBC) [Entitic vol] 97.2 fL 80-94 [facility] Glucose Glucometer (BldC) [M ass/Vol]Ordered By: Dr. Cartagena on 01-28-2023 Glucose [Mass/Vol] 109 mg/dL 74-106 [facility] Comment on above: MANAGEMENT OF PATIEN T CARE PER NURSING PROTOCOL Hematocrit Auto (Bld) [Volum e fraction]Ordered By: Dr. Cartagena on 01-28-2023 Hematocrit (Bld) [Volume fraction] 34.8 % 40-54 [facility] - Chemistry and C hemistry - challengeOrdered By: Dr. Fischer on 01-28-2023 CO2 [Moles/Vol] 28.0 mmol/L 21.0-32.0 [facility] Urea nitrogen/Creatinine [Mass ratio] 12.7 mg/mg 10-20 [facility] - Hematology and Cell countsOrdered By: Dr. Cartagena on 01-28-2023 Erythrocyte distribution width (RBC) [Entitic vol] 44.5 fL 35.1-43.9 [facility] Erythrocyte distribution width (RBC) [Ratio] 12.4 % 11.6-14.6 [facility] Immature granulocytes/100 WBC (Bld) 0.200 % 0.0-0.9 [facility] Comment on above: IG% - Immature Granu locytes (promyelocytes, myelocytes and metamyelocytes) > 1% indicates that a LEFT SHIFT is Present. MCH (RBC) [Entitic mass] 31.3 pg 27.0-32.0 [facility] Nucleated RBC/100 WBC (Bld) [Ratio] 0 % 0-5 [facility] MCHC Auto (RBC) [Mass/Vol]Or dered By: Dr. Cartagena on 01-28-2023 MCHC (RBC) [Mass/Vol] 32.2 g/dL 32-[address] [facility] No Panel InformationOrdered By: Dr. Fischer on 01-28-2023 Estimated Creatinine Clearance Calc 86.82 ml/min [facility] Estimated GFR (MDRD) Amer 145 mL/min >60 [facility] Comment on above: GFR Calc Estimated GFR (MDRD) Non-Af Amer 120 mL/min >60 [facility] Comment on above: Non- GFR Calc Platelets bldOrdered By: Dr. Cartagena on 01-28-2023 Platelets (Bld) [#/Vol] 159 10*3/uL 150-450 [facility] Serum or plasma calcium cynthia urement (mass/volume)Ordered By: Dr. Fischer on 01-28-2023 Calcium [Mass/Vol] 8.3 mg/dL 8.5-10.1 [facility] Serum or plasma creatinine m easurement (mass/volume)Ordered By: Dr. Fischer on 01-28-2023 Creatinine [Mass/Vol] 0.71 mg/dL 0.70-1.[address] [facility] Comment on above: The validity of the calculated GFR & GFRAA in patients over 70 years has not been determined. Clinical correlation is essential. Serum or plasma urea nitroge n measurement (mass/volume)Ordered By: Dr. Fischer on 01-28-2023 Urea nitrogen [Mass/Vol] 9 mg/dL 7-18 [facility] Thin prep Papanicolaou smear with manual screeningOrdered By: Dr. Fischer on 01-28-2023 Thin prep Papanicolaou smear with manual screening 2 5-15 [facility] Whole blood hemoglobin A1c/t otal hemoglobin ratio (mass fraction)Ordered By: Dr. Ortega on 01-27-2023 HbA1c (Bld) [Mass fraction] 7.1 % 3.8-5.6 [facility] Comment on above: Normal < 5.7 % Predi abetic 5.7 - 6.4 % Diabetic >or= 6.5 % Please note range changes. No Panel InformationOrdered By: La Hart on 12-18-2022 Estimated GFR (MDRD) Amer 88 mL/min >60 [facility] Comment on above: GFR Calc Estimated GFR (MDRD) Non-Af Amer 73 mL/min >60 [facility] Comment on above: Non- GFR Calc Serum or plasma creatinine m easurement (mass/volume)Ordered By: La Hart on 12-18-2022 Creatinine [Mass/Vol] 1.09 mg/dL 0.70-1.[address] [facility] Comment on above: The validity of the calculated GFR & GFRAA in patients over 70 years has not been determined. Clinical correlation is essential. Hemoglobin A1con 09-11-2021 Glucose [Mass/Vol] 235 mg/dL Normal [facility] Comment on above: Performed By: #### H BA1C #### [facility] Routine Lab [address] [place], [place] [address] HbA1c (Bld) [Mass fraction] 9.8 % High 4.3-5.6 [facility] Comment on above: Performed By: #### H BA1C #### [facility] Routine Lab [address] [place] [address] Hemoglobin A1con 04-15-2021 Glucose [Mass/Vol] 200 mg/dL Normal [facility] Comment on above: Performed By: #### H BA1C #### [facility] Routine Lab [address] [place], [place] [address] HbA1c (Bld) [Mass fraction] 8.6 % High 4.3-5.6 [facility] Comment on above: Performed By: #### H BA1C #### [facility] Routine Lab [address] [place], [place] [address] Hemoglobin A1con 12-19-2020 Glucose [Mass/Vol] 197 mg/dL Normal [facility] Comment on above: Performed By: #### H BA1C #### [facility] Routine Lab [address] [place], [place] [address] HbA1c (Bld) [Mass fraction] 8.5 % High 4.3-5.6 [facility] Comment on above: Performed By: #### H BA1C #### [facility] Routine Lab [address] [place] [address] CBC Auto Differentialon 0 Absolute Baso # 0.1 10*3/uL 0.0 - 0.2 10*3/uL [facility] Work Phone: Absolute Neut # 6.0 10*3/uL 1.8 - 7.0 10*3/uL [facility] Work Phone: 1 22 Basophils/100 WBC (Bld) 1.0 % 0.0 - 2.0 % [facility] Work Phone: Eosinophils (Bld) [#/Vol] 1.5 10*3/uL High 0.0 - 0.5 10*3/uL [facility] Work Phone: Eosinophils/100 WBC (Bld) 12.9 % High 1.0 - 6.0 % [facility] Work Phone: Erythrocyte distribution width (RBC) [Ratio] 14.2 % 11.5 - 14.5 % [facility] Work Phone: Granulocytes/100 WBC (Bld) 49.9 % 40.0 - 80.0 % [facility] Work Phone: Hematocrit (Bld) [Volume fraction] 35.5 % Low 40.0 - 52.0 % [facility] Work Phone: Hemoglobin (Bld) [Mass/Vol] 12.0 g/dL Low 13.0 - 18.0 g/dL [facility] Work Phone: Interpretation and review of laboratory results Abnormal [facility] Work Phone: Lymphocytes (Bld) [#/Vol] 3.9 10*3/uL 1.0 - 4.3 10*3/uL [facility] Work Phone: 22 Lymphocytes/100 WBC (Bld) 32.6 % 20.0 - 40.0 % [facility] Work Phone: MCH (RBC) [Entitic mass] 30.4 pg 26. 0 - 34.0 pg [facility] Work Phone: [phone] MCHC (RBC) [Mass/Vol] 33.8 % 32.0 - 36.0 % [facility] Work Phone: [phone] MCV (RBC) [Entitic vol] 89.9 fL 80.0 - 98.0 fL [facility] Work Phone: [phone] Monocytes (Bld) [#/Vol] 0.4 10*3/uL 0.0 - 0.8 10*3/uL [facility] Work Phone: 1 Monocytes/100 WBC (Bld) 3.6 % 2.0 - 10.0 % [facility] Work Phone: [phone] Platelet mean volume (Bld) [Entitic vol] 8.0 fL 7.4 - 10.4 fL [facility] Work Phone: 1 Platelets (Bld) [#/Vol] 208 10*3/uL 140 - 440 10*3/uL [facility] Work Phone: 1 RBC (Bld) [#/Vol] 3.94 10*6/uL Low 4.40 - 5.9 0 10*6/uL [facility] Work Phone: [phone] WBC (Bld) [#/Vol] 11.9 10*3/uL High 3.6 - 10.7 10*3/uL [facility] Work Phone: [phone] Performed by [facility], [address] [place] [id number] [facility] Work Phone: [phone] Comp Metabolic Panelon 11-18 Calcium [Mass/Vol] 8.9 mg/dL Normal 8.4-10.4 [facility] Comment on above: Performed By: #### O SM, PT, MG3, LACT3, TSH5 #### [facility] [address] [place] [phone] Glucose [Mass/Vol] 140 mg/dL High 70-100 [facility] Comment on above: Performed By: #### O SM, PT, MG3, LACT3, TSH5 #### [facility] [address] [place] [phone] ALP [Catalytic activity/Vol] 73 U/L Normal 38-126 [facility] Comment on above: Performed By: #### O SM, PT, MG3, LACT3, TSH5 #### [place] [address] [address] [place], [place] ALT [Catalytic activity/Vol] 17 U/L Normal 0-49 [facility] Comment on above: Result Comment: The ALT test is performed by an updated assay method. Please note that the reference intervals have been changed and are now sex specific. Performed By: #### O SM, PT, MG3, LACT3, TSH5 #### [place] [address] [address] [place], [place] Anion gap [Moles/Vol] 8 mmol/L Normal 3-13 [facility] Comment on above: Performed By: #### O SM, PT, MG3, LACT3, TSH5 #### [place] [address] [address] [place], [place] AST [Catalytic activity/Vol] 24 U/L Normal 15-46 [facility] Comment on above: Performed By: #### O SM, PT, MG3, LACT3, TSH5 #### [place] [address] [address] [place], [place] Bilirubin [Mass/Vol] 0.2 mg/dL Normal 0.2-1.3 [facility] Comment on above: Performed By: #### O SM, PT, MG3, LACT3, TSH5 #### [place] [address] [address] [place], [place] CO2 [Moles/Vol] 22 mmol/L Normal 22-30 [facility] Comment on above: Performed By: #### O SM, PT, MG3, LACT3, TSH5 #### [place] [address] [address] [place], [place] Creatinine [Mass/Vol] 1.37 mg/dL High 0.52-1.25 [facility] Comment on above: Performed By: #### O SM, PT, MG3, LACT3, TSH5 #### [place] [address] [address] [place], [place] GFR/1.73 sq M predicted among blacks MDRD (S/P/Bld) [Vol rate/Area] 64.6 mL/min/{1.73_m2} Normal >60 [facility] Comment on above: Performed By: #### O SM, PT, MG3, LACT3, TSH5 #### [facility] [address] [place], [place] GFR/1.73 sq M predicted among non-blacks MDRD (S/P/Bld) [Vol rate/Area] 55.7 mL/min/{1.73_m2} Abnormal >60 [facility] [place] Comment on above: Result Comment: KDIG O guidelines provide the following GFR categories: Stage GFR(ml/min/1.73 m2) Terms G1 >=90 Normal or high G2 60-89 Mildly decreased* G3a 45-59 Mildly to moderately decreased G3b 30-44 Moderately to severely decreased G4 15-29 Severely decreased G5 <15 Kidney failure *Relative to young adult level. In the absence of evidence of kidney damage, neither GFR category G1 nor G2 fulfill the criteria for CKD. The CKD-EPI equation is validated in individuals 18 years of age and older. Currently the best equation for estimating glomerular filtration rate (GFR) from serum creatinine in children is the Bedside Milton equation. It is less accurate in patients with extremes of muscle mass, restriction of dietary protein, ingestion of creatine, extra-renal metabolism of creatinine, or treatment with medications that affect renal tubular creatinine secretion. Performed By: #### O SM, PT, MG3, LACT3, TSH5 #### [facility] [address], [place] Protein [Mass/Vol] 6.4 g/dL Normal 6.3-8.2 [facility] Comment on above: Performed By: #### O SM, PT, MG3, LACT3, TSH5 #### [facility] [address], [place] Urea nitrogen [Mass/Vol] 30 mg/dL High 7-20 [facility] Comment on above: Performed By: #### O SM, PT, MG3, LACT3, TSH5 #### [facility] [address], [place] Potassium [Moles/Vol] 3.7 mmol/L Normal 3.5-5.1 [facility] Comment on above: Performed By: #### O SM, PT, MG3, LACT3, TSH5 #### [place] [address], [place] Albumin [Mass/Vol] 3.7 g/dL Normal 3.5-5.0 [facility] Comment on above: Performed By: #### O SM, PT, MG3, LACT3, TSH5 #### [place] [address], [place] Chloride [Moles/Vol] 100 mmol/L Normal 98-107 [facility] Comment on above: Performed By: #### O SM, PT, MG3, LACT3, TSH5 #### [place] [address], [place] Sodium [Moles/Vol] 130 mmol/L Low 135-145 [facility] Comment on above: Performed By: #### O SM, PT, MG3, LACT3, TSH5 #### [place] [address], [place] Complete Urinalysison 2020 Appearance (U) Clear Normal Clear [facility] Comment on above: Result Comment: . Performed By: #### C UA2, NAURR #### [place] [address], [place] Bilirubin,Urine Negative Normal Negative [facility] Comment on above: Result Comment: . Performed By: #### C UA2, NAURR #### [place] [address], [place] Color (U) Colorless Normal Lt. Yellow [facility] Comment on above: Result Comment: . Performed By: #### C UA2, NAURR #### [place] [address], [place] Glucose Ql (U) > 1,000 Abnormal Normal (<70) [facility] Comment on above: Result Comment: . Performed By: #### C UA2, NAURR #### [place] [address], [place] Ketone,Urine Negative Normal Negative [facility] Comment on above: Result Comment: . Performed By: #### C UA2, NAURR #### [facility] [address], [place] Leukocytes,Urine Negative Normal Negative [facility] Comment on above: Result Comment: . Performed By: #### C UA2, NAURR #### [place] [address], [place] Nitrites,Urine Negative Normal Negative [facility] Comment on above: Result Comment: . Performed By: #### C UA2, NAURR #### [place] [address], [place] Occult Blood,Urine Negative Normal Negative [facility] Comment on above: Result Comment: . Performed By: #### C UA2, NAURR #### [place] [address], [place] pH (U) 5.5 Normal 5.0-8.0 [facility] Comment on above: Result Comment: . Performed By: #### C UA2, NAURR #### [place] [address], [place] Protein (U) [Mass/Vol] Negative Normal Negative [facility] Comment on above: Result Comment: . Performed By: #### C UA2, NAURR #### [place] [address], [place] Specific Premont,Urine 1.007 Normal 1.005 - 1.030 [facility] Comment on above: Result Comment: . Performed By: #### C UA2, NAURR #### [facility] [address], [place] Urobilinogen,Urine Normal Normal Normal (0-1) [facility] Comment on above: Result Comment: . Performed By: #### C UA2, NAURR #### [place] [address], [place] Comprehensive Metabolic Pane bettina 11-18-2020 Albumin [Mass/Vol] 3.7 g/dL 3.5 - 5.0 g/dL [facility] Work Phone: [phone] ALP [Catalytic activity/Vol] 73 U/L 38 - 126 U/L [facility] Work Phone: ALT [Catalytic activity/Vol] 17 U/L 0 - 49 U/L [facility] Work Phone: [phone] Comment on above: The ALT test is perf ormed by an updated assay method. Please note that the reference intervals have been changed and are now sex specific. Anion gap [Moles/Vol] 8 mmol/L 3 - 13 mmol/L [facility] Work Phone: [phone] AST [Catalytic activity/Vol] 24 U/L 15 - 46 U/L [facility] Work Phone: [phone] Bilirubin Ql (U) 0.2 mg/dL 0.2 - 1.3 mg/dL [facility] Work Phone: [phone] Calcium [Mass/Vol] 8.9 mg/dL 8.4 - 10. 4 mg/dL [facility] Work Phone: [phone] Chloride [Moles/Vol] 100 mmol/L 98 - 10 7 mmol/L [facility] Work Phone: CO2 [Moles/Vol] 22 mmol/L 22 - 30 mmol/L [facility] Work Phone: [phone] Creatinine [Mass/Vol] 1.37 mg/dL High 0.52 - 1.25 mg/dL [facility] Work Phone: [phone] EGFR IF NonAfrican Pakistani 55.7 mL/min Abnormal >60 [facility] Work Phone: Comment on above: KDIGO guidelines pro vide the following GFR categories: Stage GFR(ml/min/1.73 m2) Terms G1 >=90 Normal or high G2 60-89 Mildly decreased* G3a 45-59 Mildly to moderately decreased G3b 30-44 Moderately to severely decreased G4 15-29 Severely decreased G5 <15 Kidney failure *Relative to young adult level. In the absence of evidence of kidney damage, neither GFR category G1 nor G2 fulfill the criteria for CKD. The CKD-EPI equation is validated in individuals 18 years of age and older. Currently the best equation for estimating glomerular filtration rate (GFR) from serum creatinine in children is the Bedside Milton equation. It is less accurate in patients with extremes of muscle mass, restriction of dietary protein, ingestion of creatine, extra-renal metabolism of creatinine, or treatment with medications that affect renal tubular creatinine secretion. GFR/1.73 sq M predicted among blacks MDRD (S/P/Bld) [Vol rate/Area] 64.6 mL/min/{1.73_m2} >60 [facility] Work Phone: Glucose [Mass/Vol] 140 mg/dL High 70 - 100 mg/dL [facility] Work Phone: Interpretation and review of laboratory results Abnormal [facility] Work Phone: [phone] Potassium [Moles/Vol] 3.7 mmol/L 3.5 - 5.1 mmol/L [facility] Work Phone: [phone] Protein [Mass/Vol] 6.4 g/dL 6.3 - 8.2 g/dL [facility] Work Phone: Sodium [Moles/Vol] 130 mmol/L Low 135 - 145 mmol/L [facility] Work Phone: Urea nitrogen [Mass/Vol] 30 mg/dL High 7 - 20 mg/d L [facility] Work Phone: EKG 12 Leadon 11-18-2020 Jaime, [facility] Results From [facility] - 11/18/2020 9:19 AM EDT [facility] Test Date: 2020-11-18 Pat Name: Jamel Yeager Department: 1A7E Room: [facility] Gender: M [employer] 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: 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 : 1960 Requested By: LEA YBARRA Order Number: [id number] Reading MD: Jarrett Friend Measurements Intervals Spurger Rate: 97 P: 54 OR: 183 QRS: 72 QRSD: 96 T: 50 QT: 370 QTc: 470 Interpretive Statements Sinus rhythm Electronically Signed On 11-18-2020 9:18:55 EDT by Jarrett Friend [facility] Work Phone: Khush Test Date: 2020-11-18 Pat Name: Jamel Yeager Department: 1A7E Room: 1715 Gender: M [employer] Manager: MARION : 1960 Requested By: LEA JAVIER Order Number: [id number] Reading MD: Jarrett Friend Measurements Intervals Spurger Rate: 97 P: 54 OR: 183 QRS: 72 QRSD: 96 T: 50 QT: 370 QTc: 470 Interpretive Statements Sinus rhythm Electronically Signed On 11-18-2020 9:18:55 EDT by Jarrett Friend [facility] Work Phone: Ethanolon 11-18-2020 Ethanol Lvl 0.023 g/dL High 0.000 - 0.010 g/dL [facility] Work Phone: Comment on above: NOTE: This result is for medical treatment only. Analysis performed using non-forensic procedures. Interpretation and review of laboratory results Abnormal [facility] Work Phone: Test Performed by [employer], [address] [place] [id number] [place], [place] [address] Work Phone: Ethanol Serum/Plasmaon 11-18 Ethanol-Serum/Plasma 0.023 g/dL High 0.000-0.010 [facility] Comment on above: Result Comment: NOTE : This result is for medical treatment only. Analysis performed using non-forensic procedures. Performed By: #### O SM, PT, MG3, LACT3, TSH5 #### [facility] [address] [place] [id number] Glucose,Bedsideon 11-18-2020 Glucose [Mass/Vol] 181 mg/dL High 70-100 [facility] Comment on above: Result Comment: Test performed by glucose meter. Results may be 10%-15% lower than serum/plasma values. (CLIA ID [id number]) Performed By: #### B GLU #### Khush [facility] [place] [address] Glucose [Mass/Vol] 287 mg/dL High 70-100 [facility] Comment on above: Result Comment: Test performed by glucose meter. Results may be 10%-15% lower than serum/plasma values. (CLIA ID [id number]) Performed By: #### B GLU #### [address] [address] Hemoglobin AND Hematocriton 11-18-2020 Hematocrit (Bld) [Volume fraction] 36.7 % Low 40.0-52.0 [facility] Comment on above: Performed By: #### O SM, PT, MG3, LACT3, TSH5 #### [address] [address] Hemoglobin (Bld) [Mass/Vol] 12.3 g/dL Low 13.0-18.0 [facility] Comment on above: Performed By: #### O SM, PT, MG3, LACT3, TSH5 #### [address] Hemoglobin and Hematocrit, B loodon 11-18-2020 Hematocrit (Bld) [Volume fraction] 36.7 % Low 40.0 - 52.0 % [facility] Work Phone: Hemoglobin (Bld) [Mass/Vol] 12.3 g/dL Low 13.0 - 18.0 g/dL [facility] Work Phone: Interpretation and review of laboratory results Abnormal [facility] Work Phone: Test Performed by [address] [address] [facility] Work Phone: Hemogram w/ Autodiffon 11-18 Abs Baso Cnt 0.1 10*3/uL Normal 0.0-0.2 [facility] Comment on above: Performed By: #### O SM, PT, MG3, LACT3, TSH5 #### [address] Abs Neutrophile Cnt 6.0 10*3/uL Normal 1.8-7.0 [facility] Comment on above: Performed By: #### O SM, PT, MG3, LACT3, TSH5 #### [address] [address] Basophils/100 WBC (Bld) 1.0 % Normal 0.0-2.0 [facility] Comment on above: Performed By: #### O SM, PT, MG3, LACT3, TSH5 #### [place] [address] [address], [place] Eosinophils (Bld) [#/Vol] 1.5 10*3/uL High 0.0-0.5 [facility] Comment on above: Performed By: #### O SM, PT, MG3, LACT3, TSH5 #### [place] [address] [address], [place] Eosinophils/100 WBC (Bld) 12.9 % High 1.0-6.0 [facility] Comment on above: Performed By: #### O SM, PT, MG3, LACT3, TSH5 #### [place] [address] [place], [place] Erythrocyte distribution width (RBC) [Ratio] 14.2 % Normal 11.5-14.5 [facility] Comment on above: Performed By: #### O SM, PT, MG3, LACT3, TSH5 #### [place] [address], [place] Granulocytes/100 WBC (Bld) 49.9 % Normal 40.0-80.0 [facility] Comment on above: Performed By: #### O SM, PT, MG3, LACT3, TSH5 #### [place] [address], [place] Hematocrit (Bld) [Volume fraction] 35.5 % Low 40.0-52.0 [facility] Comment on above: Performed By: #### O SM, PT, MG3, LACT3, TSH5 #### [place] [address], [place] Hemoglobin (Bld) [Mass/Vol] 12.0 g/dL Low 13.0-18.0 [facility] Comment on above: Performed By: #### O SM, PT, MG3, LACT3, TSH5 #### [place] [address], [place] Lymphocytes (Bld) [#/Vol] 3.9 10*3/uL Normal 1.0-4.3 [facility] Comment on above: Performed By: #### O SM, PT, MG3, LACT3, TSH5 #### [place] [address], [place] Lymphocytes/100 WBC (Bld) 32.6 % Normal 20.0-40.0 [facility] Comment on above: Performed By: #### O SM, PT, MG3, LACT3, TSH5 #### [place] [address], [place] MCH (RBC) [Entitic mass] 30.4 pg Normal 26.0-34.0 [facility] Comment on above: Performed By: #### O SM, PT, MG3, LACT3, TSH5 #### [place] [address] [place], [place] MCHC (RBC) [Mass/Vol] 33.8 % Normal 32.0-36.0 [facility] Comment on above: Performed By: #### O SM, PT, MG3, LACT3, TSH5 #### [place] [address], [place] MCV (RBC) [Entitic vol] 89.9 fL Normal 80.0-98.0 [facility] Comment on above: Performed By: #### O SM, PT, MG3, LACT3, TSH5 #### [place] [address], [place] Monocytes (Bld) [#/Vol] 0.4 10*3/uL Normal 0.0-0.8 [facility] Comment on above: Performed By: #### O SM, PT, MG3, LACT3, TSH5 #### [place] [address] [address], [place] Monocytes/100 WBC (Bld) 3.6 % Normal 2.0-10.0 [facility] Comment on above: Performed By: #### O SM, PT, MG3, LACT3, TSH5 #### [place] [address] [place], [place] Platelet mean volume (Bld) [Entitic vol] 8.0 fL Normal 7.4-10.4 [facility] Comment on above: Performed By: #### O SM, PT, MG3, LACT3, TSH5 #### [address] Platelets (Bld) [#/Vol] 208 10*3/uL Normal 140-440 [facility] Comment on above: Performed By: #### O SM, PT, MG3, LACT3, TSH5 #### [place] [address] [place], [place] RBC (Bld) [#/Vol] 3.94 10*6/uL Low 4.40-5.90 [facility] Comment on above: Performed By: #### O SM, PT, MG3, LACT3, TSH5 #### [address] WBC (Bld) [#/Vol] 11.9 10*3/uL High 3.6-10.7 [facility] Comment on above: Performed By: #### O SM, PT, MG3, LACT3, TSH5 #### [place] [address] [place], [place] Lactic Acidon 11-18-2020 Lactate [Moles/Vol] 1.8 mmol/L Normal 0.7-2.0 [facility] Comment on above: Performed By: #### O SM, PT, MG3, LACT3, TSH5 #### [address] Lactic Acid, Plasmaon 2020 Lactate [Moles/Vol] 1.8 mmol/L 0.7 - 2. 0 mmol/L [facility] Work Phone: Test Performed by [id number] [place] [address] Work Phone: Magnesiumon 11-18-2020 Magnesium [Mass/Vol] 2.2 mg/dL Normal 1.6-2.3 [facility] Comment on above: Performed By: #### O SM, PT, MG3, LACT3, TSH5 #### [place] [address] [place] [address] Magnesium [Mass/Vol] 2.2 mg/dL 1.6 - 2 .3 mg/dL [facility] Work Phone: 1 Osmolalityon 11-18-2020 Interpretation and review of laboratory results Abnormal [facility] Work Phone: 1 Serum Osmolality 301 mosm/kg High 280 - 300 mosm/kg [facility] Work Phone: 1 Test Performed by Khush, [address] [place] [address] [facility] Work Phone: 1 Osmolality,Serumon Osmolality,Serum 301 mosm/kg High 280-300 [employer] Comment on above: Performed By: #### O SM, PT, MG3, LACT3, TSH5 #### Khush [facility] [place] [address] Otheron 11-18-2020 Test Performed by Khush, [address] [place] [address] [facility] Work Phone: 1 POCT Glucoseon 11-18-2020 Glucose [Mass/Vol] 181 mg/dL High 70 - 100 mg/dL [facility] Work Phone: [phone] Comment on above: Test performed by gl ucose meter. Results may be 10%-15% lower than serum/plasma values. (CLIA ID [id number]) Interpretation and review of laboratory results Abnormal [facility] Work Phone: 1 Test Performed by Khush, [address] [place] [address] [facility] Work Phone: 1 Glucose [Mass/Vol] 287 mg/dL High 70 - 100 mg/dL [facility] Work Phone: 1 Comment on above: Test performed by gl ucose meter. Results may be 10%-15% lower than serum/plasma values. (CLIA ID [id number]) Interpretation and review of laboratory results Abnormal [facility] Work Phone: 1 Test Performed by Khush, [address] [place] [address] [facility] Work Phone: Prothrombin Timeon INR Coag (PPP) [Relative time] 0.9 Normal 0.9-1.1 [facility] Comment on above: Result Comment: Laith mmended Anticoagulant Therapy: SEE BELOW ----- INR of 2.0 - 3.0 : - Prophylaxis of Venous Thrombosis (high-risk surgery) - Treatment of Venous Thrombosis - Treatment of Pulmonary Embolism (Includes tissue heart valves, Acute Myocardial Infarction to prevent systemic embolism, Valvular Heart Disease, and Atrial Fibrillation) ----- INR of 2.5 - 3.5 : - Mechanical Prosthetic Valves (high risk) - If oral anticoagulant therapy is used to prevent Myocardial Infarction Performed By: #### O SM, PT, MG3, LACT3, TSH5 #### [facility] [address] [place] [address] PT Coag (PPP) [Time] 9.8 s Normal 9.0-12.0 [facility] [employer] Comment on above: Result Comment: . Performed By: #### O SM, PT, MG3, LACT3, TSH5 #### [employer] [address] [place] [phone] Protime-INRon 11-18-2020 INR Coag (PPP) [Relative time] 0.9 {INR} [facility] Work Phone: Comment on above: Recommended Anticoag ulant Therapy: SEE BELOW ----- INR of 2.0 - 3.0 : - Prophylaxis of Venous Thrombosis (high-risk surgery) - Treatment of Venous Thrombosis - Treatment of Pulmonary Embolism (Includes tissue heart valves, Acute Myocardial Infarction to prevent systemic embolism, Valvular Heart Disease, and Atrial Fibrillation) ----- INR of 2.5 - 3.5 : - Mechanical Prosthetic Valves (high risk) - If oral anticoagulant therapy is used to prevent Myocardial Infarction PT Coag (PPP) [Time] 9.8 s 9.0 - 12.0 s [facility] Work Phone: Comment on above: . Test Performed by [facility], [address] [place] [id number] [place] [address] Work Phone: SODIUM, URINE, RANDOMon 04-0 Interpretation and review of laboratory results Abnormal [facility] Work Phone: [phone] Sodium (U) [Moles/Vol] 15 mmol/L Low 30 - 90 mmol/L [facility] Work Phone: [phone] Test Performed by Khush, [address] [place] [address] [facility] Work Phone: [phone] Sodium, Ur Randomon 11-19-19 21 Sodium [Moles/Vol] 15 mmol/L Low 30-90 [facility] Comment on above: Performed By: #### C UA2, NAURR #### Khush [facility] [place] [address] TSH without Reflexon 021 TSH Qn 1.911 u[IU]/mL 0.465 - 4.680 u[IU]/mL [facility] Work Phone: [phone] Test Performed by Khush, [address] [place] [address] [facility] Work Phone: [phone] Thyroid Stim. Hormoneon 04- Thyroid Stim. Hormone 1.911 u[IU]/mL Normal 0.465-4.68 0 [facility] Comment on above: Performed By: #### O SM, PT, MG3, LACT3, TSH5 #### Kh[facility] [place] [address] Urinalysison 11-18-2020 Appearance (U) Clear Clear NA [facility] Work Phone: [phone] Comment on above: . Bilirubin Urine Negative Negative mg/dL [facility] Work Phone: [phone] Comment on above: . Color (U) Colorless Lt. Yellow NA [facility] Work Phone: [phone] Comment on above: . Glucose, Ur >1,000 Abnormal Normal (<70) mg/dL [facility] Work Phone: [phone] Comment on above: . Interpretation and review of laboratory results Abnormal [facility] Work Phone: [phone] Ketones Ql (U) Negative Negative mg/dL [facility] Work Phone: [phone] Comment on above: . LEUKOCYTES, UA Negative Negative Norbert/uL [facility] Work Phone: [phone] Comment on above: . Nitrite, Urine Negative Negative NA [facility] Work Phone: [phone] Comment on above: . Occult Blood,Urine Negative Negative mg/dL [facility] Work Phone: [phone] Comment on above: . pH (U) 5.5 [pH] [facility] Work Phone: [phone] Comment on above: . Protein (U) [Mass/Vol] Negative Negat guillaume mg/dL [facility] Work Phone: [phone] Comment on above: . Specific Premont, Urine 1.007 [facility] Work Phone: [phone] Comment on above: . Urobilinogen, Urine Normal Normal ( 0-1) mg/dL [facility] Work Phone: [phone] Comment on above: . Test Performed by Khush, [address] [place] [address] [facility] Work Phone: [phone] Hemoglobin A1con 10-03-2020 Glucose [Mass/Vol] 217 mg/dL Normal [facility] Comment on above: Performed By: #### H BA1C #### [facility] Routine Lab [address] [place], [place] [id number] HbA1c (Bld) [Mass fraction] 9.2 % High 4.3-5.6 [facility] Comment on above: Performed By: #### H BA1C #### [facility] Routine Lab [address] [place], [place] [id number] Basic Metabolic Panelon 04-0 Anion gap [Moles/Vol] 15 mmol/L Normal 9-15 [facility] Comment on above: Performed By: #### B MP #### [facility] [address] [place] [address] Calcium [Mass/Vol] 9.8 mg/dL Normal 8.5-9.9 [facility] Comment on above: Performed By: #### B MP #### [facility] [address] [place] [address] Chloride [Moles/Vol] 98 mmol/L Normal 95-107 [facility] Comment on above: Performed By: #### B MP #### [facility] [address] [place] [address] CO2 [Moles/Vol] 24 mmol/L Normal 20-31 [facility] Comment on above: Performed By: #### B MP #### [facility] [address] [place] [address] Creatinine [Mass/Vol] 1.17 mg/dL Normal 0.70-1.20 [facility] Comment on above: Performed By: #### B MP #### [facility] [address] [place] [address] GFR/1.73 sq M predicted among blacks MDRD (S/P/Bld) [Vol rate/Area] mL/min/{1.73_m2} Normal >60 [facility] Comment on above: Result Comment: >60 mL/min/1.73m2 EGFR, calc. for ages 18 and older using the MDRD formula (not corrected for weight), is valid for stable renal function. Performed By: #### B MP #### [facility] [address] [place] [address] GFR/1.73 sq M.predicted MDRD (S/P/Bld) [Vol rate/Area] mL/min/{1.73_m2} Normal >60 [facility] Comment on above: Result Comment: >60 mL/min/1.73m2 EGFR, calc. for ages 18 and older using the MDRD formula (not corrected for weight), is valid for stable renal function. Performed By: #### B MP #### [facility] [address] [place] [address] Glucose [Mass/Vol] 330 mg/dL Critically high 70-99 [facility] Comment on above: Performed By: #### B MP #### [facility] [address] [place] [address] Potassium [Moles/Vol] 4.3 mmol/L Normal 3.4-4.9 [facility] Comment on above: Performed By: #### B MP #### [facility] [address] [place] [address] Sodium [Moles/Vol] 137 mmol/L Normal 135-144 [facility] Comment on above: Performed By: #### B MP #### [facility] [address] [place] [address] Urea nitrogen [Mass/Vol] 27 mg/dL Critically high 6-20 [facility] Comment on above: Performed By: #### B MP #### [facility] [address] [place] [address] Lipid Panelon 11-22-2019 Cholesterol [Mass/Vol] 145 mg/dL Normal 0-199 [facility] Comment on above: Result Comment: ATP III Cholesterol classification is Desirable. Performed By: #### L IPID #### [facility] [address] [place] [address] Cholesterol in HDL [Mass/Vol] 36 mg/dL Low 40-59 [facility] Comment on above: Result Comment: ATP III HDL Cholestrol Classification is low. Expected Values: Males: >55 = No Risk 35-55 = Moderate Risk <35 = High Risk Females: >65 = No Risk 45-65 = Moderate Risk <45 = High Risk NCEP Guidelines: Third Report December 2000 >59 = negative risk factor for CHD <40 = major risk factor for CHD Performed By: #### L IPID #### [facility] [address] [place] [address] Triglyceride [Mass/Vol] 451 mg/dL Critically high 0-150 [facility] Comment on above: Result Comment: ATP III Triglycerides Classification is High. Performed By: #### L IPID #### [facility] [address] [place] [address] Cholesterol in LDL [Mass/Vol] see below Normal 0-129 [facility] Comment on above: Result Comment: When the triglyceride is >400 mg/dL the calculated LDL and VLDL are not valid. Performed By: #### L IPID #### [facility] [address] [place] [address] TSH w/out Reflexon 0 TSH Qn 3.620 uIU/mL Normal 0.440-3.86 [facility] Comment on above: Performed By: #### T SH #### [facility] [address] [place] [address] Amylaseon 11-21-2019 Amylase [Catalytic activity/Vol] 64 U/L Normal 22-93 [facility] Comment on above: Performed By: #### A MY #### [facility] [address] [place] [address] Folateon 11-21-2019 Folate 11.4 ng/mL Normal 7.3-26.1 [facility] Comment on above: Result Comment: As o f 16, the methodology has changed. Results from this methodology should not be compared with results from previous methodology. Performed By: #### F OLAT #### [facility] [address] [place] [address] GGTon 11-21-2019 Gamma glutamyl transferase [Catalytic activity/Vol] 44 U/L Normal 0-60 [facility] Comment on above: Performed By: #### G GT #### [facility] [address] [place] [address] Lipaseon 11-21-2019 Lipase [Catalytic activity/Vol] 54 U/L Normal 12-95 [facility] Comment on above: Performed By: #### L IPAS #### [facility] [address] [place] [address] Vitamin B12on 11-21-2019 Cobalamin (Vitamin B12) [Mass/Vol] 362 pg/mL Normal 232-1245 [facility] Comment on above: Performed By: #### B 12 #### [facility] [address] [place] [address] Vital Signs Date Time Vital Sign Value Performing Clinician Faci lity 04-19-2025 18:37-0400 Body temperature 97.6 [degF] Nadya Valentin FACILITIES AND GROUNDS DIRECTOR-C Work Phone: [facility] 04-19-2025 18:37-0400 Diastolic blood pressure 65 mm[Hg] Nadya Valentin FACILITIES AND GROUNDS DIRECTOR-C Work Phone: [facility] 04-19-2025 18:37-0400 Heart rate 62 /min Nadya Valentin FACILITIES AND GROUNDS DIRECTOR-C Work Phone: [facility] 04-19-2025 18:37-0400 Respiratory rate 18 /min Nadya Valentin FACILITIES AND GROUNDS DIRECTOR-C Work Phone: [facility] 04-19-2025 18:37-0400 SaO2% (BldA) [Mass fraction] 98 % Nadya Valentin FACILITIES AND GROUNDS DIRECTOR-C Work Phone: [facility] 04-19-2025 18:37-0400 Systolic blood pressure 176 mm[Hg] Nadya Valentin FACILITIES AND GROUNDS DIRECTOR-C Work Phone: [facility] 04-19-2025 15:06-0400 Body height 160.02 cm Nadya Valentin FACILITIES AND GROUNDS DIRECTOR-C Work Phone: [facility] 04-19-2025 15:06-0400 Body mass index (BMI) [Ratio] 26.6 kg/m2 Nadya Valentin FACILITIES AND GROUNDS DIRECTOR-C Work Phone: [facility] 04-19-2025 15:06-0400 Body weight 68.1 kg Nadya Valentin FACILITIES AND GROUNDS DIRECTOR-C Work Phone: [facility] 2024 17:20-0400 Diastolic blood pressure 64 mm[Hg] Nadya Valentin FACILITIES AND GROUNDS DIRECTOR-C Work Phone: [facility] 2024 17:20-0400 Heart rate 89 /min Nadya Valentin FACILITIES AND GROUNDS DIRECTOR-C Work Phone: [facility] 2024 17:20-0400 Respiratory rate 14 /min Nadya Valentin FACILITIES AND GROUNDS DIRECTOR-C Work Phone: [facility] 2024 17:20-0400 SaO2% (BldA) [Mass fraction] 99 % Nadya Valentin FACILITIES AND GROUNDS DIRECTOR-C Work Phone: [facility] 2024 17:20-0400 Systolic blood pressure 131 mm[Hg] Nadya Valentin FACILITIES AND GROUNDS DIRECTOR-C Work Phone: [facility] 2024 14:24-0400 Body height 160.02 cm Nadya Valentin FACILITIES AND GROUNDS DIRECTOR-C Work Phone: [facility] 2024 14:24-0400 Body mass index (BMI) [Ratio] 27.7 kg/m2 Nadya Valentin FACILITIES AND GROUNDS DIRECTOR-C Work Phone: [facility] 2024 14:24-0400 Body temperature 98 [degF] Nadya Valentin FACILITIES AND GROUNDS DIRECTOR-C Work Phone: [facility] 2024 14:24-0400 Body weight 71 kg Nadya Valentin FACILITIES AND GROUNDS DIRECTOR-C Work Phone: [facility] 01-28-2023 11:00-0400 Diastolic blood pressure 56 mm[Hg] Dr. Nadya Kenney Work Phone: [facility] 01-28-2023 11:00-0400 Heart rate 61 /min Dr. Nadya Kenney Work Phone: [facility] 01-28-2023 11:00-0400 Respiratory rate 11 /min Dr. Nadya Kenney Work Phone: [facility] 01-28-2023 11:00-0400 SaO2% (BldA) [Mass fraction] 95 % Dr. Nadya Kenney Work Phone: [facility] 01-28-2023 11:00-0400 Systolic blood pressure 125 mm[Hg] Dr. Nadya Kenney Work Phone: [facility] 01-28-2023 07:00-0400 Inhaled oxygen flow rate 2 L/min Dr. Nadya Kenney Work Phone: [facility] 01-28-2023 06:00-0400 Body temperature 97.5 [degF] Dr. Nadya Fast Work Phone: [facility] 01-28-2023 05:18-0400 Body mass index (BMI) [Ratio] 24.6 kg/m2 Dr. Ku Fast Work Phone: [facility] 01-28-2023 05:18-0400 Body weight 63.[address] Ku Fast Work Phone: [facility] 01-23-2023 13:22-0400 Body temperature 98.2 [degF] Dr. Ku Fast Work Phone: [facility] 01-23-2023 13:22-0400 Body weight [address] Ku Fast Work Phone: [facility] 01-23-2023 13:22-0400 Diastolic blood pressure 65 mm[Hg] Dr. Ku Fast Work Phone: [facility] 01-23-2023 13:22-0400 Heart rate 66 /min Dr. Ku Fast Work Phone: [facility] 01-23-2023 13:22-0400 Respiratory rate 18 /min Dr. Ku Fast Work Phone: [facility] 01-23-2023 13:22-0400 SaO2% (BldA) [Mass fraction] 98 % Dr. Ku Fast Work Phone: [facility] 01-23-2023 13:22-0400 Systolic blood pressure 130 mm[Hg] Dr. Ku Fast Work Phone: [facility] 12-18-2022 10:02-0400 Body weight 623.[address] Ku Fast Work Phone: [facility] 12-18-2022 10:02-0400 Diastolic blood pressure 70 mm[Hg] Dr. Ku Fast Work Phone: [facility] 12-18-2022 10:02-0400 Heart rate 65 /min Dr. Ku Fast Work Phone: [facility] 12-18-2022 10:02-0400 Respiratory rate 16 /min Dr. Nadya Kenney Work Phone: [facility] 12-18-2022 10:02-0400 SaO2% (BldA) [Mass fraction] 99 % Dr. Nadya Kenney Work Phone: [facility] 12-18-2022 10:02-0400 Systolic blood pressure 136 mm[Hg] Dr. Nadya Kenney Work Phone: [facility] 11-18-2020 07:21-0400 Body Temperature 98.2 [degF] [facility] Work Phone: 11-18-2020 07:21-0400 BP Diastolic 59 mm[Hg] [facility] Work Phone: 11-18-2020 07:21-0400 BP Systolic 144 mm[Hg] [facility] Work Phone: 11-18-2020 07:21-0400 Pulse (Heart Rate) 99 /min [facility] Work Phone: 11-18-2020 07:21-0400 Pulse Oximetry 97 % [facility] Work Phone: 11-18-2020 07:21-0400 Respiratory Rate 17 /min [facility] Work Phone: 11-18-2020 03:56-0400 Body weight 79.06 kg Inder[facility] Work Phone: Encounters Encounter Date Encounter Type Care Provider Facility Start: 04-19-2025 End: 04-19-2025 ambulatory NADYA Saldivar [facility] Start: 04-19-2025 End: 04-19-2025 Emergency department patient visit Nadya FARMER Work Phone: -Emergency Department Work Phone: Start: 01-19-2025 End: 01-19-2025 Emergency department patient visit NADYA SHASHI [facility] Start: 01-04-2025 End: 01-04-2025 ambulatory NADYA VALENTIN [facility] Start: 01-04-2025 End: 01-04-2025 ambulatory NADYA VALENTIN [facility] Start: 2024 End: 2024 Emergency department patient visit Nadya Valentin FACILITIES AND GROUNDS DIRECTOR-C Work Phone: -Emergency Department Work Phone: Start: 10-13-2024 End: 10-13-2024 ambulatory NADYA VALENTIN [facility] Start: 06-30-2024 End: 06-30-2024 ambulatory NADYA VALENTIN [facility] Start: 06-30-2024 End: 06-30-2024 ambulatory [facility] Start: 06-15-2024 End: 06-15-2024 Emergency department patient visit SAULO NEFF [facility] Start: 01-28-2023 Non-patient / Non-visit Dr. Nadya Kenney Work Phone: [facility] Start: 01-27-2023 Non-patient / Non-visit Dr. Nadya Kenney Work Phone: [facility] Start: 01-27-2023 End: 01-28-2023 Evaluation and management of inpatient Dr. Nadya Kenney Work Phone: [facility] Start: 01-24-2023 Non-patient / Non-visit Dr. Nadya Kenney Work Phone: [facility] Start: 01-24-2023 Non-patient / Non-visit Dr. Nadya Kenney Work Phone: [facility] Start: 01-24-2023 End: 01-24-[address] Nadya Kenney Work Phone: [facility] Work Phone: Start: 01-24-2023 End: 01-24-[address] Nadya Kenney Work Phone: [facility] Start: 01-23-2023 End: 01-23-[address] Nadya Kenney Work Phone: [facility] Start: 01-10-2023 Non-patient / Non-visit Dr. Nadya Kenney Work Phone: [facility] Start: 01-10-2023 End: 01-10-[address] Nadya Kenney Work Phone: [facility] Work Phone: Start: 01-10-2023 End: 01-10-[address] Nadya Kenney Work Phone: [facility] Start: 12-18-2022 End: 12-18-[address] Nadya Kenney Work Phone: [facility] Work Phone: Start: 12-18-2022 End: 12-18-[address] Nadya Kenney Work Phone: [facility] Start: 12-18-2022 End: 12-18-[address] Nadya Kenney Work Phone: [facility] Start: 11-18-2020 End: 11-18-2020 Evaluation and management of inpatient Inderpartap S [facility] Work Phone: [facility] On[facility] Procedures Date Procedure Procedure Detail Performing Clinician Start: 04-19-2025 Plain chest X-ray Nadya Valentin NP-C Work Phone: Start: 04-19-2025 Urnls dip stick/tabl et reagent auto microscopy Nadya Valentin FACILITIES AND GROUNDS DIRECTOR-C Work Phone: Start: 04-19-2025 CT of head without contrast Nadya Valentin FACILITIES AND GROUNDS DIRECTOR-C Work Phone: Start: 04-19-2025 Estimated creatinine clearance Nadya Valentin FACILITIES AND GROUNDS DIRECTOR-C Work Phone: Start: 01-19-2025 Urinalysis NADYA Mcdonald Comment on above: Result Comment: URIN ALYSIS Performed By: #### [id number] #### [facility],[address] [place] [address] Start: 10-13-2024 PSA screening NADYA FORD Comment on above: Performed By: #### 2 [id number] #### [facility],[address] [place], [place] [id number] Start: 01-27-[address] Nadya Kenney Work Phone: Start: 01-24-2023 Cardiovascular stres s test using pharmacologic stress agent Dr. Nadya Kenney Work Phone: Start: 01-10-2023 CT angiography of he ad and neck Dr. Nadya Kenney Work Phone: Start: 11-18-2020 Blood count hemoglobin Inderpartap S [facility] Work Phone: Start: 11-18-2020 Gluc bld gluc mntr d ev cleared fda spec home use [facility] Work Phone: Start: 11-18-2020 Assay of urine sodium I nderpartap S Ph[facility] Work Phone: Start: 11-18-2020 Urnls dip stick/tabl et rgnt auto w/o microscopy [facility] Work Phone: Start: 11-18-2020 Gluc bld gluc mntr d ev cleared fda spec home use [facility] Work Phone: Start: 11-18-2020 Assay of ethanol Inderp art[facility] Work Phone: Start: 11-18-2020 Assay of lactate [facility] Work Phone: Start: 11-18-2020 Assay of magnesium Inde rpartap S [facility] Work Phone: Start: 11-18-2020 Assay of osmolality blood [facility] Work Phone: Start: 11-18-2020 Assay of thyroid stimulating hormone tsh [facility] Work Phone: Start: 11-18-2020 Blood count complete auto&auto difrntl wbc [facility] Work Phone: Start: 11-18-2020 Comprehensive metabo lic panel [facility] Work Phone: Start: 11-18-2020 Prothrombin time [facility] Work Phone: Start: 11-18-2020 Ecg routine ecg w/le ast 12 lds w/i&r [facility] Work Phone: Start: 03-09-2007 History of coronary artery bypass grafting H/O coronary artery bypass surgery Dr. Nadya Kenney Work Phone: Comment on above: CABG X 4: CARUSO-LAD, SVG-D1, SVG-LCX, and SVG to RPDA 03/09/2007 History of carotid endarterectomy History of left-sided carotid endarterectomy Dr. Nadya Kenney Work Phone: Plan of Treatment Date Care Activity Detail Author Start: 04-19-2025 [facility] Start: 2024 [facility] Start: 01-28-2023 Patient discharge [facility] Start: 01-27-2023 Following clinical pathway protocol [facility] Start: 01-27-2023 Ambulation without limitation [facility] Start: 01-27-2023 Assessment of risk o f venous thromboembolism [facility] Start: 01-27-2023 Care regimes management [facility] Start: 01-27-2023 Catheterization of vein [facility] Start: 01-27-2023 Continuous pulse oximetry [facility] Start: 01-27-2023 Deep breathing and coughing exercises [facility] Start: 01-27-2023 Elevation of head of bed [facility] Start: 01-27-2023 Incentive spirometry [facility] Start: 01-27-2023 Insertion of cathete r into peripheral vein [facility] Start: 01-27-2023 Measuring intake and output [facility] Start: 01-27-2023 Notification of physician [facility] Start: 01-27-2023 Oxygen therapy [facility] Start: 01-27-2023 Patient referral to dietitian [facility] Start: 01-27-2023 Providing care accor ding to standard [facility] Start: 01-27-2023 Provision of activit y privileges [facility] Start: 01-27-2023 Referral to occupati onal therapist [facility] Start: 01-27-2023 Referral to service [facility] Start: 01-27-2023 Vital signs measurements [facility] Start: 01-27-2023 [facility] Start: 01-27-2023 Admission procedure [facility] Start: 11-18-2021 Creatinine measurement Creatinine mo nitoring [facility] Work Phone: Start: 11-18-2021 Potassium monitoring Potassium monit oring [facility] Work Phone: Start: 04-18-2021 Influenza vaccination Flu vacc ine (Season Ended) [facility] Work Phone: Start: 1976 COVID-19 Vaccine (1) COVID-19 Vaccin e (1) [facility] Work Phone: Ankle brachial press ure index [facility] CBC auto differential CBC auto d ifferential Lab Routine Daily until discontinued starting 11/19/2020 [facility] Work Phone: Comment on above: Daily until disconti nued starting 11/19/2020 Comprehensive metabo lic 2000 panel Comprehensive Metabolic Panel Lab Routine Daily until discontinued starting 11/18/2020, 1 completed [facility] Work Phone: Comment on above: Daily until disconti nued starting 11/18/2020, 1 completed CTA Head vessels and Neck vessels W contrast IV [facility] End: 11-18-2020 Ethanol [Mass/Vol] Ethanol Lab Add-On One Time for 1 Occurrences starting 11/18/2020 until 11/18/2020 [facility] Work Phone: Comment on above: One Time for 1 Occur rences starting 11/18/2020 until 11/18/2020 End: 11-25-2020 Hemoglobin and Hematocrit, Blood Hemoglobin and Hematocrit, Blood Lab Timed Every 6 Hours (Lab) for 7 Days starting 11/18/2020 until 11/25/2020, 1 completed [facility] Work Phone: Comment on above: Every 6 Hours (Lab) for 7 Days starting 11/18/2020 until 11/25/2020, 1 completed Hemoglobin and Hematocrit, Blood Hemoglobin and Hematocrit, Blood Lab Timed 11/18/2020 5:19 AM EDT [facility] Work Phone: End: 11-19-2020 Iron and TIBC Iron and TIBC Lab Routine Tomorrow AM for 1 Occurrences starting 11/19/2020 until 11/19/2020 [facility] Work Phone: Comment on above: Tomorrow AM for 1 Oc currences starting 11/19/2020 until 11/19/2020 Microscopic urinalysis [facility] Organism count, microscopic method [facility] Oxygen therapy [[facility] Data Set] Initiate Oxygen Therapy Protocol Respiratory Care Routine Daily until discontinued starting 11/18/2020 [facility] Work Phone: Comment on above: Daily until disconti nued starting 11/18/2020 Patient Education [facility] Work Phone: Patient referral [facility] Work Phone: End: 11-25-2020 POCT Glucose POCT Glucose Point of Care Testing Routine Every 6 Hours (Lab) for 7 Days starting 11/18/2020 until 11/25/2020 [facility] Work Phone: Comment on above: Every 6 Hours (Lab) for 7 Days starting 11/18/2020 until 11/25/2020 POCT Glucose POCT Glucose Poi nt of Care Testing STAT As Needed until discontinued starting 11/18/2020 [facility] Work Phone: Comment on above: As Needed until disc ontinued starting 11/18/2020 Procedure [facility] Urine microscopy: epithelial cells [facility] Urine microscopy: re d cells [facility] US Lower extremity artery [facility] White blood cell count [facility] Payers Date Payer Category Payer Self-pay [id number] 2021 Unknown [id number] 2013 Medicaid [id number] 2003 Medicare MEDICARE PART A B [id number] 1960 Unknown [id number] 2.16.8 [id number] 1960 Unknown [id number] 2.16.8 [id number] 1960 Unknown [id number] 2.16.8 [id number] 1960 Unknown [id number] 2.16.8 [id number] 1960 Unknown [id number] 2.16.8 [id number] 1960 Unknown [id number] 2.16.8 [id number] 1960 Unknown [id number] 2.16.8 [id number] 1960 Unknown [id number] 2.16.8 [id number] Unknown [id number] 2.16.8 [id number] Social History Date Type Detail Facility Start: 11-18-2020 Tobacco smoking stat us NHIS Current every day smoker [facility] Work Phone: History of tobacco use Cigarette Smoker [facility] Work Phone: Start: 11-18-2020 Cigarettes smoked current (pack per day) - Reported [facility] Work Phone: Start: 11-18-2020 Alcohol intake Current drinke r of alcohol (finding) [facility] Work Phone: Start: 11-18-2020 History SDOH Alcohol Frequency 4 [facility] Work Phone: Start: 11-18-2020 History SDOH Alcohol Binge 5 [facility] Work Phone: Sex Assigned At Not on file [facility] Work Phone: Start: 12-18-2022 End: 01-29-2023 Tobacco smoking status NHIS Unknown if ever smoked [facility] Start: 1960 Sex Assigned At Male [facility] Start: 2024 End: 04-19-2025 Tobacco smoking status NHIS Current Light tobacco smoker [facility] Medical Equipment Procedure Code Equipment Code Equipment Origin al Text Equipment Identifier Dates Endarterectomy, carotid SUTURE,LIGA CLIP SM LT-100 FDA Start: 01-27-2023 Endarterectomy, carotid SUTURE,LIGA CLIP SM LT-100 FDA Start: 01-27-2023 Endarterectomy, carotid ([id number]) Cardiovascular patch, animal-derived [id number] FDA Start: 01-27-2023 Endarterectomy, carotid Ligation clip, metallic [id number] FDA Start: 01-27-2023 Endarterectomy, carotid SUTURE,LIGA CLIP SM LT-100 FDA Start: 01-27-2023 Endarterectomy, carotid SUTURE,LIGA CLIP SM LT-100 FDA Start: 01-27-2023 Endarterectomy, carotid SUTURE,LIGA CLIP SM LT-100 FDA Start: 01-27-2023 Endarterectomy, carotid SUTURE,LIGA CLIP SM LT-100 FDA Start: 01-27-2023 Endarterectomy, carotid SUTURE,LIGA CLIP SM LT-100 FDA Start: 01-27-2023 Endarterectomy, carotid SUTURE,LIGA CLIP SM LT-100 FDA Start: 01-27-2023 Endarterectomy, carotid SUTURE,LIGA CLIP SM LT-100 FDA Start: 01-27-2023 Endarterectomy, carotid SUTURE,LIGA CLIP SM LT-100 FDA Start: 01-27-2023 Endarterectomy, carotid SUTURE,LIGA CLIP SM LT-100 FDA Start: 01-27-2023 Endarterectomy, carotid SUTURE,LIGA CLIP SM LT-100 FDA Start: 01-27-2023 Goals Date Patient Goal Desired Activity /State Functional Status Date Assessment Result Facility 01-28-2023 Functional status Patient Activity Chair [facility] Work Phone: 01-27-2023 Functional status Activity Abili ty Standby Assist [facility] Work Phone: Mental Status Date Assessment Result Facility 04-19-2025 Cognitive function Level Of Cons ciousness Awake;Alert;Appropriate;Drowsy [facility] Work Phone: 2024 Cognitive function Level Of Cons ciousness Awake;Alert;Appropriate;Follow s Commands [facility] Work Phone: 01-27-2023 Cognitive function Appropriate;Cooperativ e [facility] Work Phone: Radiology Diagnostic study note 04-19-2025 Note Date & Type Note Facility 04-19-2025 Radiology Diagnostic study note [facility] [address] [place], [place] [address] Brain/Head without Contrast MR#: [id number] Acct: [id number] Name: JAMEL YEAGER Rep #: [id number] : 1960 M 64 From: Sung Avila MD PCP: MARLENY Ramirez Status: REG ER Study:Brain/Head without Contrast Date of Exa m: 04/19/25 Exam# [id number] Ordering Dr: Abhinav Jolley DO PROCEDURE: BRAIN/HEAD WITHOUT CONTRAST 04/19/2025 REASON FOR EXAM: HEADACHE, AMS TECHNIQUE: Procedure Code: CTBR Modality: CT Procedure: BRAIN/HEAD WITHOUT CONTRAST Coronal and Sagittal reconstruction series were provided. One or more dose reduction techniques were used (e.g., Automated exposure control, adjustment of the mA and/or kV according to patient size, use of iterative reconstruction technique. FINDINGS: Focal low-attenuation in the cortex of the left occipital lobe likely representsold ischemia or gliosis from a previous injury. No acute intracranial hemorrhage. No midline shift. The unenhanced brain parenchyma appears otherwise unremarkable. No fracture. The calvarium is intact. The visualized paranasal sinuses and mastoid air cells are clear. CT/Brain/Head without Contrast IMPRESSION: No CT evidence of an acute intracranial abnormality. Reading [id number] CC: FACILITIES AND GROUNDS DIRECTOR-C Nadya Valentin; Dr. Aleyda Jolley DO ~ Training And Development Coordinator: Signed [facility] Radiology Diagnostic study note 04-19-2025 Note Date & Type Note Facility 04-19-2025 Radiology Diagnostic study note [facility] [address] [place] [address] [id number] Chest 1 View (Portable) MR#: [id number] Acct: [id number] Name: JAMEL YEAGER Rep #: [id number] : [id number] M 64 From: Elgin Dubon MD PCP: MARLENY Ramirez Status: REG ER Study:Chest 1 View (Portable) Date of Exam: 04/19/25 Exam# [id number] Ordering Dr: Abhinav Jolley DO PROCEDURE: CHEST 1 VIEW (PORTABLE) 04/19/2025 REASON FOR EXAM: HYPOGLYCEMIA ,AMS TECHNIQUE: Frontal view of the chest. COMPARISON: None. FINDINGS: Lungs/Pleura: Clear. No pneumothorax or sizable pleural effusion. Heart/Mediastinum: Normal in size. Evidence of prior CABG. Bones/Soft tissues: Sternotomy wires, otherwise unremarkable. RAD/Chest 1 View (Portable) IMPRESSION: No acute cardiopulmonary disease. Reading Location: [id number] CC: MARLENY Valentin; Dr. Aleyda Jolley DO ~ Training And Development Coordinator: Signed [facility] Discharge instructions 04-17-2025 Note Date & Type Note Facility 04-17-2025 Hospital Discharg e instructions Additional Instructions Decrease your insulin as discussed with your primary care doctor today. Make sure you are eating regularly and drinking plenty of fluids. Follow-up with your doctor later this week for recheck of your kidney function as you did have a mild elevation of your creatinine today. He did receive IV fluids for this. If you change your mind and feel that you would be better off admitted or start to have further concerns please return the emergency room [facility] Work Phone: Clinical Note 06-15-2024 Note Date & Type Note Facility 06-15-2024 Note Discharge Instructio ns Discharge Summary [address] [place] [address] [id number] 06/15/2024 Patient: JAMEL YEAGER Sex: Male : 1960 Age: 63y Thank you for visiting [facility]. You have been evaluated today by Saulo Neff D.O. for the following condition(s): Principal Diagnosis Upper extremity pain involving the right shoulder and right upper arm. INSTRUCTIONS Apply ice. Prescription Medications: Percocet 5 mg-325 mg tablet: Take 1 tablet by mouth every six to eight hours as needed for pain for 5 days, dispense 12 tablet. Refills 0. Pharmacy: [facility]/pharmacy #[id number] - [address] [place], [place] [phone]. prednisone 20 mg tablet: Take 1 tablet by mouth once a day for 5 days, dispense 5 tablet. Refills 0. Pharmacy: [facility]/pharmacy #[id number] - [address] [place], [place] [phone]. Follow-up with: Dipesh Ledesma DO, [facility], Orthopedic, , [address] [phone]. (I think your pain could be coming from your neck. I will follow up with Dr. Ledesma he has a spine doctor. I would also follow up with China Valentin. Take the Percocet pain medications sparingly and return if increasing pain problems or concerns). 1 of 4 Discharge Instructions You have been given the following additional information: Shoulder Pain with Uncertain Cause Patient Signature Facility Senior Field Engineer Date/Time General Instructions with [employer] [address] [place] [phone] 06/15/2024 Patient: JAMEL YEAGER Sex: Male : 1960 Age: 63y Thank you for visiting [facility]. You have been evaluated today by Saulo Neff D.O. for the following condition(s): Principal Diagnosis Upper extremity pain involving the right shoulder and right upper arm. INSTRUCTIONS Apply ice. Prescription Medications: Percocet 5 mg-325 mg tablet: Take 1 tablet by mouth every six to eight hours as needed for pain for 5 days, dispense 12 tablet. Refills 0. Pharmacy: [facility]/pharmacy #[id number] - [address] [place], [place] [phone]. prednisone 20 mg tablet: Take 1 tablet by mouth once a day for 5 days, dispense 5 tablet. Refills 0. Pharmacy: [facility]/pharmacy #[id number] - [address] [place], [place] [phone]. 2 of 4 Discharge Instructions Follow-up with: Dipesh Ledesma DO, [facility], Orthopedic, , [address] [id number]. (I think your pain could be coming from your neck. I will follow up with Dr. Ledesma he has a spine doctor. I would also follow up with China Valentin. Take the Percocet pain medications sparingly and return if increasing pain problems or concerns). ADDITIONAL INFORMATION Shoulder Pain with Uncertain Cause Shoulder pain can have many causes. Pain often comes from the structures that surround the shoulder joint. These are the joint capsule, ligaments, tendons, muscles, and bursa. Pain can also come from cartilage in the joint. Cartilage can become worn out or injured. It's important to know what's causing your pain so the healthcare provider can use the correct treatment. But sometimes it's difficult to find the exact cause of shoulder pain. You may need to see a specialist (orthopedist). You may also need special tests such as a CT scan or MRI. The provider may need to use special tools to look inside the joint (arthroscopy). Shoulder pain can be treated with a sling or a device that keeps your shoulder from moving. You can take an anti-inflammatory medicine such as ibuprofen to ease pain. You may need to do special shoulder exercises. Follow up with a specialist if the pain is severe or doesn't go away after a few weeks. Home care Follow these tips when caring for yourself at home: If a sling was given to you, leave it in place for the time advised by your healthcare provider. If you aren't sure how long to wear it, ask for advice. If the sling becomes loose, adjust it so that your forearm is level with the ground. Your shoulder should feel well supported. Put an ice pack on the injured area for 20 minutes every 1 to 2 hours the first day. You can make your own ice pack by putting ice cubes in a plastic bag. Wrap the bag in a thin towel. Continue with ice packs 3 to 4 times a day for the next 2 days. Then use the pack as needed to ease pain and swelling. You may use acetaminophen or ibuprofen to control pain, unless another pain medicine was prescribed. If you have chronic liver or kidney disease, talk with your healthcare provider before using these medicines. Also talk with your provider if you've ever had a stomach ulcer or digestive bleeding. (more content not included)... [facility] Evaluation note Note Date & Type Note Facility Evaluation note Diagnosis Onset Date Carotid stenosis chronic Peripheral vascular occlusive disease [facility] Work Phone: Evaluation note Note Date & Type Note Facility Evaluation note Diagnosis Onset Date Carotid stenosis chronic Peripheral vascular occlusive disease chronic Carotid stenosis chronic Peripheral vascular occlusive disease chronic Carotid stenosis [facility] Work Phone: Evaluation note Note Date & Type Note Facility Evaluation note No assessment information availa [facility] Work Phone: Reason for referral (narrative) Note Date & Type Note Facility Reason for referral (narrative) No reason for referral information available [facility] Work Phone: Summary Purpose Family History No Family History Records Found Relationship Condition Age at Onset Recorded Date/T jackson brother Kidney disorder Unknown mother Asthma Unknown Cardiac disease Unknown Hypertension Unknown father Malignant neoplasm Unknown Advance Directives No Advanced Directives Records FoundLatest Code Status on File Code Status Date Activated Date Inactivated Comments Full Code 11/18/2020 4:53 AM Advance Directive Response Recorded Date/ Time Living Will No January 29, 2023 12:53pm Power of [employer] Apprentice No January 29 12:53pm Advance Directive Response Recorded Date/ Time Do you have a Healthcare Power of [employer] Apprentice? No 2024 2:28pm Advance Directive Response Recorded Date/ Time Do you have a Healthcare Power of [employer] Apprentice? No 2024 2:28pm Do you have a Healthcare Power of [employer] Apprentice? No April 19, 2025 3:14pm Hospital Course Note Discharge Summary Jamel mcdonald : 1960 ADMIT DATE: 11/18/2020 DISCHARGE DATE: 11/18/2020 PRIMARY CARE PHYSICIAN: No primary care provider on file. VISIT STATUS: Observation CODE STATUS: Prior DISCHARGE DIAGNOSES: Active Problems: History of hematemesis Rectal pain On home oxygen therapy Anemia Antiplatelet or antithrombotic long-term use History of esophagogastroduodenoscopy (EGD) History of colonoscopy Resolved Problems: * No resolved hospital problems. * HOSPITAL COURSE: ADMITTED FOR hematemesis, gi consulted, placed on protonix, ivf, pt refused to stay and left AMA. CONSULTANTS: GI, ADM DISPOSITION: AMA DISCHARGE TIME: > 30 minutes SIGNED: ZEINAB HAIRSTON MD 11/19/2020, 1:47 PM Chief Complaint and Reason for Visit Chief Complaint URGENT EVAL Reason for Visit Carotid stenosis Peripheral vascular occlusive disease Chief Complaint URGENT EVAL PERIPHERAL VASCULAR DISEASE DISCUSS RESULTS CAD HX TIA Coronary artery disease LEFT CAROTID ENDARTERECTOMY LEFT CAROTID ENDARTERECTOMY LEFT CAROTID ENDARTERECTOMY Reason for Visit Carotid stenosis Peripheral vascular occlusive disease Carotid stenosis Peripheral vascular occlusive disease Carotid stenosis Chief Complaint Admit Date hypoglycemia 2024 2:22pm Chief Complaint Admit Date hypoglycemia 2024 2:22pm not responding Luly 2nd, 2025 3:05pm Additional Source Comments (unrecognized sect ion and content) No Status Records FoundNo Status Records FoundNo Status Records FoundNo Status Records FoundNo Status Records Found INFORMATION SOURCE (unrecogn ized section and content) DATE CREATED AUTHOR 11/22/2019 [facility] DATE CREATED AUTHOR AUTHOR'S ORGANIZ ATION 11/30/2020 [facility] DATE CREATED AUTHOR AUTHOR'S ORGANIZ ATION 09/12/2021 [facility] DATE CREATED AUTHOR AUTHOR'S ORGANIZ ATION 12/29/2024 [facility] DATE CREATED AUTHOR AUTHOR'S ORGANIZ ATION 04/19/2025 [facility] Care Teams (unrecognized sec tion and content) Team Status: Active Member Role Status Dates Dr. Nadya Kenney DO Family Provider Active Dr. Nadya Kenney DO Primary Care Provider Active Team Status: Inactive Member Role Status Dates Dr. Nadya Kenney DO Primary Care Provider, Referring P rovider Active GUILLAUME Cardoso Attending Provider Active Team Status: Inactive Member Role Status Dates Dr. Nadya Kenney DO Primary Care Provider Active GUILLAUME Cardoso Attending Provider, Referring Provider Active Team Status: Active Member Role Status Dates Dr. Nadya Kenney DO Family Provider Active Nadya Valentin FACILITIES AND GROUNDS DIRECTOR, FACILITIES AND GROUNDS DIRECTOR-C Primary Care Provider Active Team Status: Active Member Role Status Dates Nadya Valentin NP, FACILITIES AND GROUNDS DIRECTOR-C Primary Care Provider Active Dr. Basil Cartagena MD Attending Provider, Referring Pro vider Active Team Status: Inactive Member Role Status Dates Nadya Valentin FACILITIES AND GROUNDS DIRECTOR, FACILITIES AND GROUNDS DIRECTOR-C Primary Care Provider, Referring Provider Active GUILLAUME Cardoso Attending Provider Active Team Status: Active Member Role Status Dates Dr. David Cohen MD Attending Provider, Referring Provider, Other Provider Active Nadya Valentin FACILITIES AND GROUNDS DIRECTOR, FACILITIES AND GROUNDS DIRECTOR-C Primary Care Provider Active Team Status: Active Member Role Status Dates Nadya Valentin NP, FACILITIES AND GROUNDS DIRECTOR-C Primary Care Provider Active Dr. Basil Cartagena MD Admit Provider, Att ending Provider, Referring Provider, Other Provider Active Team Status: Active Member Role Status Dates Nadya Valentin NP, FACILITIES AND GROUNDS DIRECTOR-C Primary Care Provider Active Dr. Basil Cartagena MD Attending Provider Active Team Status: Active Member Role Status Dates Nadya Valentin NP, FACILITIES AND GROUNDS DIRECTOR-C Primary Care Provider Active Dr. Basil Cartagena MD Admit Provider, Ref erring Provider, Other Provider Active GUILLAUME Cardoso Attending Provider Active Team Status: Inactive Member Role Status Dates Dr. David Cohen MD Attending Provider, Referring Pro vider Active Nadya Valentin FACILITIES AND GROUNDS DIRECTOR, FACILITIES AND GROUNDS DIRECTOR-C Primary Care Provider Active Team Status: Active Member Role Status Dates Dr. Basil Cartagena MD Attending Provider, Referring Pro vider Active Nadya Valentin FACILITIES AND GROUNDS DIRECTOR, FACILITIES AND GROUNDS DIRECTOR-C Primary Care Provider Active Team Status: Inactive Member Role Status Dates Nadya Valentin FACILITIES AND GROUNDS DIRECTOR, FACILITIES AND GROUNDS DIRECTOR-C Primary Care Provider Active Dr. Basil Cartagena MD Admit Provider, Att ending Provider, Referring Provider Active Team Status: Inactive Member Role Status Dates Nadya Valentin FACILITIES AND GROUNDS DIRECTOR, FACILITIES AND GROUNDS DIRECTOR-C Primary Care Provider Active GUILLAUME Cardoso Attending Provider, Referring Provider Active Team Status: Active Member Role Status Dates Nadya Valentin FACILITIES AND GROUNDS DIRECTOR, FACILITIES AND GROUNDS DIRECTOR-C Primary Care Provider Active GUILLAUME Cardoso Attending Provider, Referring Provider Active Team Status: Inactive Member Role Status Dates Dr. Basil Cartagena MD Attending Provider, Referring Pro vider Active Nadya Valentin FACILITIES AND GROUNDS DIRECTOR, FACILITIES AND GROUNDS DIRECTOR-C Primary Care Provider Active Team Status: Active Member Role Status Dates Nadya Valentin FACILITIES AND GROUNDS DIRECTOR, FACILITIES AND GROUNDS DIRECTOR-C Primary Care Provider Active Team Status: Inactive Member Role Status Dates Nadya Valentin FACILITIES AND GROUNDS DIRECTOR, FACILITIES AND GROUNDS DIRECTOR-C Primary Care Provider Active Start: 2024 End: 2024 Dr. Alli Garcia , Emergency Provider Active S tart: 2024 End: 2024 Team Status: Active Member Role/Relationship Status Dates Nadya Valentin FACILITIES AND GROUNDS DIRECTOR, FACILITIES AND GROUNDS DIRECTOR-C Primary Care Provider Active Team Status: Inactive Member Role/Relationship Status Dates Nadya Valentin FACILITIES AND GROUNDS DIRECTOR, FACILITIES AND GROUNDS DIRECTOR-C Primary Care Provider Active Start: 2024 End: 2024 Dr. Alli Garcia DO Attending Provider Active S tart: 2024 End: 2024 Dr. Alli Garcia DO Emergency Provider Active S tart: 2024 End: 2024 Team Status: Inactive Member Role/Relationship Status Dates Nadya Valentin FACILITIES AND GROUNDS DIRECTOR, FACILITIES AND GROUNDS DIRECTOR-C Primary Care Provider Active Start: April 19, 2025 End: April 19, 2025 Dr. Aleyda Jolley DO Emergency Provider Active Start: April 19, 2025 End: April 19, 2025 Goals (unrecognized section and content) Goals may be documented in a n alternate sectionGoals may be documented in an alternate sectionGoals may be documented in an alternate sectionGoals may be documented in an alternate section FOR RECORDS PERTAINING TO PATIENTS WHO ARE OR HAVE BEEN ENROLLED IN A CHEMICAL DEPENDENCY/SUBSTANCEABUSE PROGRAM, SOME INFORMATION MAY BE OMITTED. This clinical summary was aggregated from multiple sources. Caution should be exercised in using it in the provision of clinical care. This summary normalizes information from multiple sources, and as a consequence, information in this document may materially change the coding, format and clinical context of patient data. In addition, data may be omitted in some cases. CLINICAL DECISIONS SHOULD BE BASED ON THE PRIMARY CLINICAL RECORDS. [facility]. provides no warranty or guarantee of the accuracy or completeness of information in this document.
== END 2025-04-19 18:38 | disposition home or self-care (01) ==
PROVIDERS: Emergency Provider Emergency Medicine; PCP Nurse Practitioner Family; Visit Provider Emergency Medicine
DX: E11.649 Type 2 diabetes mellitus with hypoglycemia without coma (principal); F03.93 Unspecified dementia, unspecified severity, with mood disturbance; F03.94 Unspecified dementia, unspecified severity, with anxiety; Z79.4 Long term (current) use of insulin; E11.40 Type 2 diabetes mellitus with diabetic neuropathy, unspecified; E11.22 Type 2 diabetes mellitus with diabetic chronic kidney disease; E11.51 Type 2 diabetes mellitus with diabetic peripheral angiopathy without gangrene; N18.30 Chronic kidney disease, stage 3 unspecified; I25.10 Atherosclerotic heart disease of native coronary artery without angina pectoris; K21.9 Gastro-esophageal reflux disease without esophagitis; I12.9 Hypertensive chronic kidney disease with stage 1 through stage 4 chronic kidney disease, or unspecified chronic kidney disease; E78.00 Pure hypercholesterolemia, unspecified; G47.00 Insomnia, unspecified; G43.909 Migraine, unspecified, not intractable, without status migrainosus; F17.200 Nicotine dependence, unspecified, uncomplicated; Z95.1 Presence of aortocoronary bypass graft; Z86.73 Personal history of transient ischemic attack (TIA), and cerebral infarction without residual deficits; Z79.02 Long term (current) use of antithrombotics/antiplatelets; Z79.84 Long term (current) use of oral hypoglycemic drugs; Z79.899 Other long term (current) drug therapy
CPT/HCPCS: 70450; 71045; 80053; 81001; 82962; 85025; 93005; 96360; 96361; 99285; A4216